=== PATIENT | male | born 1955 | race Caucasian/White ===

== ENCOUNTER 2016-12-04 21:47 | Inpatient (IN) | payer OTHER ==
[~2016-12-04] VITALS: Ht 167.6 cm; Wt 67.8 kg
[~2016-12-04 21:47] MED LIST: ALBU2.5V36 NEB; GABA300C PO; HYD25 PO; HYDR2TAB36 PO; LANT3I SC; NOV SC
--- NOTE | 2016-12-04 23:41 | ERA ---
ER Documentation Chief Complaint Date/Time DATE: 12/04/16 TIME: 23:40 Chief Complaint fall HPI The patient is a 61-year-old male, presenting to the ER because he was drinking and had a mechanical fall. He complains of headache, neck pain, denies chest pain or dyspnea, complains of diffuse abdominal pain, denies vomiting, dysuria, diarrhea. He smokes and drinks denies illicit drug Past medical history: Hypertension, diabetes mellitus, history of pancreatitis Past surgical history: Cholecystectomy ROS All systems reviewed and are negative except as per history of present illness. Medications Home Meds Reported Medications Tramadol Hcl* (Ultram*) 50 Mg Tablet, 100 MG PO Q12H Y for PAIN, TAB TK 2 TS PO Q 12H PRN 12/05/16 Atorvastatin* (Atorvastatin*) 40 Mg Tablet, 40 MG PO QHS, #30 TAB 12/05/16 Zolpidem Tartrate* (Zolpidem Tartrate*) 10 Mg Tablet, 10 MG PO QHS Y for INSOMNIA, #30 TAB 12/05/16 Thiamine* (Vitamin B-1*) 100 Mg Tablet, 100 MG PO DAILY, TAB 12/05/16 Amlodipine Besylate* (Norvasc*) 5 Mg Tablet, 5 MG PO DAILY, TAB 12/05/16 Propranolol Hcl* (Propranolol Hcl*) 10 Mg Tablet, 10 MG PO DAILY, TAB 12/05/16 Insulin Aspart (Novolog) 100 Unit/1 Ml Cartridge, 5 UNIT SQ WITH MEALS 12/05/16 Gabapentin* (Neurontin*) 300 Mg Capsule, 300 MG PO TID, CAP 06/11/14 Hydromorphone Hcl* (Dilaudid*) 2 Mg Tablet, 2 MG PO Q8 Y for PAIN, TAB 06/11/14 Insulin Glargine* (Lantus*) 100 Unit/Ml Soln, 10 UNIT SC HS, EA 06/11/14 Discontinued Reported Medications Albuterol Sulfate* (Albuterol Sulfate* Neb) 0.5%-0.5 Ml Neb, 2.5 MG NEB Q4H Y for WHEEZING AND SOB, EA 06/11/14 Insulin Aspart* (Novolog Insulin Vial*) 100 U/Ml Vial, 0 SC SLIDING SCALE AC, VIAL 06/11/14 Hydrochlorothiazide* (Hydrochlorothiazide*) 25 Mg Tab, 25 MG PO DAILY, TAB 06/11/14 Allergies Allergies: Coded Allergies: No Known Allergy (Unverified , 12/05/16) PMhx/Soc History of Surgery: Yes Anesthesia Reaction: No Hx Neurological Disorder: Yes (Pt states that he had TIA) Hx Respiratory Disorders: No Hx Cardiac Disorders: No Hx Psychiatric Problems: Yes (ETOH abuse) Hx Miscellaneous Medical Probl: No Hx Alcohol Use: Yes (1 can beer,i bottle vodka 12/04/16) Hx Substance Use: No (denies) Hx Tobacco Use: Yes Smoking Status: Current every day smoker Physical Exam Vitals Vital Signs Date Time Temp Pulse Resp B/P Pulse Ox O2 Delivery O2 Flow Rate FiO2 12/05/16 00:23 98.2 109 16 132/79 96 Room Air 12/04/16 21:54 98.7 96 18 124/71 96 Physical Exam Const: No acute distress. Head: Atraumatic. Eyes: Normal Conjunctiva. ENT: Normal External Ears, Nose and Mouth. Neck: Full range of motion. No meningismus. Resp: Clear to auscultation bilaterally. Cardio: Regular rate and rhythm. Abd: Soft, non distended, normal bowel sounds, Diffuse abdominal tenderness, No rigidity, rebound, CVA tenderness Skin: No petechiae or rashes. Back: No midline or flank tenderness. Ext: No cyanosis, or edema.Bilateral knee with full range of motion, no deformity Neur: Awake and alert. No focal deficit Psych: Limited because patient is Intoxicated Result Diagram: 12/05/16 0200 12/05/16 0200 Results 24 hrs Laboratory Tests Test 12/05/16 00:37 12/05/16 02:00 Bedside Urine pH (LAB) 5.5 Bedside Urine Protein (LAB) 1+ Bedside Urine Glucose (UA) Negative Bedside Urine Ketones (LAB) Negative Bedside Urine Blood Negative Bedside Urine Nitrite (LAB) Negative Bedside Urine Leukocyte Esterase (L Negative White Blood Count 7.510^3/ul Red Blood Count 4.2310^6/ul Hemoglobin 13.7g/dl Hematocrit 40.6% Mean Corpuscular Volume 96.0fl Mean Corpuscular Hemoglobin 32.4pg Mean Corpuscular Hemoglobin Concent 33.7g/dl Red Cell Distribution Width 13.2% Platelet Count 52253^3/UL Mean Platelet Volume 11.1fl Neutrophils % 48.6% Lymphocytes % 38.0% Monocytes % 10.9% Eosinophils % 1.1% Basophils % 1.1% Nucleated Red Blood Cells % 0.0/100WBC Neutrophils # (Manual) 3.710^3/ul Lymphocytes # 2.910^3/ul Monocytes # 0.810^3/ul Eosinophils # 0.110^3/ul Basophils # 0.110^3/ul Nucleated Red Blood Cells # 0.010^3/ul Prothrombin Time 15.2Sec Prothrombin Time Ratio 1.2 INR International Normalized Ratio 1.19 Activated Partial Thromboplast Time 33.5Sec Sodium Level 146mmol/L Potassium Level 4.2mmol/L Chloride Level 99mmol/L Carbon Dioxide Level 23mmol/L Anion Gap 28 Blood Urea Nitrogen 9mg/dl Creatinine 0.63mg/dl Glucose Level 169mg/dl Calcium Level 10.1mg/dl Total Bilirubin 0.3mg/dl Direct Bilirubin 0.00mg/dl Indirect Bilirubin 0.3mg/dl Aspartate Amino Transf (AST/SGOT) 41IU/L Alanine Aminotransferase (ALT/SGPT) 20IU/L Alkaline Phosphatase 120IU/L Total Protein 8.1g/dl Albumin 4.5g/dl Globulin 3.60g/dl Albumin/Globulin Ratio 1.25 Lipase 51U/L Ethyl Alcohol Level 285.0mg/dl Current Medications Medications (Trade) Dose Ordered Sig/Dom Route PRN Reason Start Time Stop Time Status Last Admin Dose Admin Sodium Chloride (NS) 1,000 ml @ 100 mls/hr Q10H IV 12/05/16 04:05 IV Flush (NS 3 ml) 3 ml PER PROTOCOL IV 12/05/16 04:30 Ondansetron HCl (Zofran Inj) 4 mg Q6H PRN IV NAUSEA AND/OR VOMITING 12/05/16 04:30 Acetaminophen (Tylenol Tab) 650 mg Q6H PRN PO PAIN LEVEL 1-3 OR FEVER 12/05/16 04:30 Morphine Sulfate (morphine) 2 mg Q4H PRN IV SEVERE PAIN LEVEL 7-10 12/05/16 04:30 Famotidine (Pepcid) 20 mg Q12 PO 12/05/16 09:00 Albuterol/ Ipratropium 3 ml 3 ml Q2H RESP THERAPY PRN HHN SHORTNESS OF BREATH 12/05/16 04:30 Multivitamins/ Thiamine HCl/ Folic Acid/Sodium Chloride (Mvi Adult/ Vitamin B1/Folic Acid/NS) 1,011.2 ml @ 125 mls/ hr DAILY@09 IVPB 12/05/16 09:00 12/08/16 08:00 Chlordiazepoxide (Librium) 25 mg BID PO 12/05/16 09:00 Lorazepam (Ativan) 2 mg Q1H PRN IV withdrawal 12/05/16 04:30 Amlodipine Besylate (Norvasc) 5 mg DAILY PO 12/05/16 09:00 UNV Atorvastatin Calcium (Lipitor) 40 mg QHS PO 12/05/16 21:00 UNV Gabapentin (Neurontin) 300 mg TID PO 12/05/16 09:00 UNV Insulin Glargine (Lantus) 10 unit HS SC 12/05/16 21:00 Tramadol HCl (Ultram) 100 mg Q12H PRN PO PAIN 12/05/16 04:30 Zolpidem Tartrate (Ambien) 10 mg QHS PRN PO INSOMNIA 12/05/16 04:30 UNV Insulin Aspart (Novolog Insulin Pen) 5 unit WITH MEALS SC 12/05/16 08:00 Procedures/[place] [address] Radiology Main Line: [phone] DIAGNOSTIC IMAGING REPORT Patient: SULEIMAN MENARD : 1955 Age: 61 Sex: M MR #: [id number] DOS: 12/05/16 0015 Ordering MD: JOSE JUAN HENDRICKS MD Location: E/R Room/Bed: PROCEDURE: XR Chest. CLINICAL INDICATION: Pain. TECHNIQUE: Single AP portable chest. COMPARISON: No prior Chest x-ray FINDINGS: The cardiomediastinal silhouette is within normal limits of size. Atherosclerotic calcification of the aorta. The lungs are clear without pleural effusion or focal consolidation. No pneumothorax. The osseous structures and soft tissues are unremarkable. IMPRESSION: 1. No evidence for active cardiopulmonary disease. RPTAT:AAJJ J Port, Physician Date Time Electronically viewed and signed by Adam Rosario Physician on 12/05/2016 00:51 JOHN/ CC: JOSE JUAN HENDRICKS MD [place] [address] Radiology Main Line: [phone] DIAGNOSTIC IMAGING REPORT Patient: SULEIMAN MENARD : 1955 Age: 61 Sex: M MR #: [id number] DOS: 12/05/16 0015 Ordering MD: JOSE JUAN HENDRICKS MD Location: E/R Room/Bed: PROCEDURE: CT Cervical Spine without contrast. CLINICAL INDICATION: Neck pain. TECHNIQUE: A CT of the cervical spine was performed on a CT scanner utilizing thin section axial images from the skull base through the thoracic inlet. Sagittal and coronal reformatted images were made. The CTDIvol is 22.3 mGy and the DLP is 568.56 mGycm. Automated exposure control, adjustment of the mA and/or kV according to patient size, use of iterative reconstruction technique. COMPARISON: No prior studies are available for comparison. FINDINGS: Reversal of the normal cervical lordosis with posterior cervical fusion with intact lateral mass screws and rods bilaterally at C3, C4, and C5 decompression laminectomies. No vertebral body subluxation is seen. No fracture is evident. C2-3: The disc is normal in height. No significant disk bulge or protrusion is evident. There is no central canal stenosis or foraminal narrowing. C3-4: Mild disk space narrowing. Posterior spondylitic ridging. Moderate bilateral facet joint arthropathy. Moderate right and mild left foraminal stenosis. No central canal stenosis. C4-5: The disc is normal in height. Marked bilateral hypertrophic facet joint arthropathy . No significant disk bulge or protrusion is evident. There is no central canal stenosis or foraminal narrowing. C5-6: The disc is normal in height. Mild bilateral facet joint arthropathy. No significant disk bulge or protrusion is evident. There is no central canal stenosis or foraminal narrowing. C6-7: The disc is normal in height. 4 days disk osteophyte complex formation and moderate hypertrophic facet joint arthropathy. Moderate bilateral foraminal and severe central canal stenosis measuring 5 mm in AP dimension. C7-T1: The disc is normal in height. Left subarticular disk osteophyte complex resulting in mild left foraminal stenosis without central canal or significant foraminal stenosis. No paraspinal soft tissue abnormality. The lung apices are clear. IMPRESSION: 1. Intact posterior lateral mass screws and fusion rods from C3-C5 with decompression laminectomies. 2. Mild multilevel disk desiccation and degenerative spondylosis/enthesopathy and facet joint arthropathy from C3-C4 through C6-C7 as detailed above. RPTAT:AAJJ Adam Rosario Physician Date Time Electronically viewed and signed by Physician Belinda on 12/05/2016 01:48 JOHN/ CC: JOSE JUAN HENDRICKS MD [place] [address] Radiology Main Line: [phone] DIAGNOSTIC IMAGING REPORT Patient: SULEIMAN MENARD : 1955 Age: 61 Sex: M MR #: [id number] DOS: 12/05/16 0015 Ordering MD: JOSE JUAN HENDRICKS MD Location: E/R Room/Bed: PROCEDURE: CT Brain without contrast. CLINICAL INDICATION: Pain TECHNIQUE: A multiplanar CT of the brain was performed on a CT scanner utilizing axial imaging from the skull base through the vertex without IV contrast. The CTDIvol is 41.74 mGy and the DLP is 720.23 mGycm. One or more of the following dose reduction techniques were utilized: Automated exposure control, adjustment of the mA and/or kV according to patient size, use of iterative reconstruction technique. COMPARISON: None FINDINGS: No evidence of intracranial hemorrhage or abnormal extra-axial fluid collection. Patchy and confluent hypoattenuation throughout the deep white matter with bilateral of thalamic remote lacunar infarcts. The ventricles and subarachnoid spaces are moderately prominent compatible with a age-related volume loss. The basal cisterns, posterior fossa contents, brainstem, craniocervical junction , orbits, pituitary axis, paranasal sinuses, mastoid air cells, and calvarium are unremarkable. IMPRESSION: 1. No intracranial hemorrhage or acute intracranial abnormality. 2. Moderate chronic microvascular ischemic changes and age related volume loss . RPTAT:AAJJ Adam Rosario Physician Date Time Electronically viewed and signed by Adam Rosario Physician on 12/05/2016 01:41 JOHN/ CC: JOSE JUAN HENDRICKS MD [place] [address] Radiology Main Line: [phone] DIAGNOSTIC IMAGING REPORT Patient: SULEIMAN MENARD : 1955 Age: 61 Sex: M MR #: [id number] DOS: 12/05/16 0015 Ordering MD: JOSE JUAN HENDRICKS MD Location: E/R Room/Bed: AMENDMENT: 12/05/2016 2:08:06 AM Hadley Ann MD ADDENDUM: IMPRESSION: Nodular hepatic serosa compatible with a degree of cirrhosis. PROCEDURE: CT abdomen and pelvis without contrast. CLINICAL INDICATION: Abdominal pain. TECHNIQUE: Noncontrast CT examination of the abdomen and pelvis, with axial, sagittal and coronal reformatted images. CTDI: 8.32 mGy and DLP: 521.83 mGy-cm. COMPARISON: None. FINDINGS: CT abdomen: The lung bases are clear. The heart size is normal, without pericardial thickening or effusion. The liver demonstrates a nodular serosa compatible with cirrhosis. Otherwise, the liver is normal in size and density without focal mass or intrahepatic biliary dilatation. The spleen is normal in size and homogeneous in density. The stomach is partially collapsed, but is grossly unremarkable. The pancreas as visualized is normal. The gallbladder is surgically absent, and biliary tree is unremarkable and there is no evidence for biliary dilatation. The adrenal glands are symmetric and normal. Kidneys demonstrate mild perinephric fat inflammatory changes. IV contrast enhanced CT examination may be of further use. No renal calculus or obstructive uropathy or mass lesion is seen. The aorta is of normal caliber. Aortic vascular calcifications are present. There is no retroperitoneal lymphadenopathy. The vitaliy hepatis region is clear. Diverticula throughout the colon. Nonspecific mild to moderate small bowel ileus. The appendix is unremarkable. CT pelvis: Subcutaneous soft tissue lesion seen over the posterior superior medial right iliac, measuring 62 x 47 x 38 mm. This may represent a resolving hematoma if there is no history of trauma consider contrast enhanced MRI examination to exclude a soft tissue neoplasm. Nonspecific mild to moderate small bowel ileus. The pelvic organs are otherwise normal. The pelvic sidewalls and inguinal regions are clear. The sigmoid colon contains scattered diverticula; and rectum is unremarkable. No mass, lymphadenopathy, or free fluid is seen. No acute inflammation is seen. The appendix is unremarkable. The surrounding osseous structures are remarkable for degenerative spondylosis of the spine. Anterior wedging is seen at the L1 level with superior endplate Schmorl node. Erosive changes seen at the anterior L4-5 articulation with disk vacuum effect and disk space narrowing. Likely Schmorl nodes seen at the inferior endplate of L3. Internal metallic fixation of the left hip. No osteolytic or osteoblastic lesion is detected. IMPRESSION: 1. Nonspecific bilateral renal perinephric fat inflammatory changes. Consider IV contrast enhanced CT correlation. 2. Mild to moderate nonspecific small bowel ileus. 3. Soft tissue lesion at the superior medial aspect of the right iliac may represent a resolving hematoma. Differential considerations include neoplasm in the absence of trauma, and consider IV contrast enhanced MRI correlation. 4. Otherwise, no acute process in the abdomen or pelvis. RPTAT: UU Physician Shelby Date Time Electronically viewed and signed by Physician Shelby on 12/05/2016 02:08 RS/ CC: JOSE JUAN HENDRICKS MD B/l Knees xray aer pending MEDICAL MAKING DECISION: The patient is 61-year-old male, presenting alcohol intoxication, acute ileus. The differential diagnoses considered include but are not limited to cholelithiasis, cholecystitis, cystitis, pancreatitis, hepatitis, gastritis, peptic ulcer disease, gastric ulcer, appendicitis, diverticulitis, cholangitis, choledocholithiasis, partial small bowel obstruction. Consultation: Consultation I discussed the present with the on-call general surgeon Dr. Page, who was made aware of the lab, the treatment, the patient condition. He accepted the consult Departure Diagnosis: Primary Impression: Ileus Additional Impressions: Alcoholic intoxication Anemia Condition: Stable Comments I discussed the findings with the patient. I discussed the patient with the hospitalist Dr. Hoskins at 3:40 AM who was made aware of the lab, the treatment, the patient condition. The patient is admitted to JOSE JUAN JACOME MD Dec 04, 2016 23:41
[2016-12-05 00:31] LABS: URINE BLOOD (Dip) POC Negative (NEGATIVE)
--- NOTE | 2016-12-05 00:51 | RADRPT ---
PROCEDURE: XR Chest. CLINICAL INDICATION: Pain. TECHNIQUE: Single AP portable chest. COMPARISON: No prior Chest x-ray FINDINGS: The cardiomediastinal silhouette is within normal limits of size. Atherosclerotic calcification of t he aorta. The lungs are clear without pleural effusion or focal consolidation. No pneumothorax. The osseous structures and soft tissues are unremarkable. IMPRESSION: 1. No evidence for active cardiopulmonary disease. RPTAT:AAJJ Adam Rosario Physician Date Time Electronically viewed and signed by Adam Rosario Physician on 12/05/2016 00:51 JOHN/
--- NOTE | 2016-12-05 01:42 | RADRPT ---
PROCEDURE: CT Brain without contrast. CLINICAL INDICATION: Pain TECHNIQUE: A multiplanar CT of the brain was performed on a CT scanner utilizing axial imaging fro m the skull base through the vertex without IV contrast. The CTDIvol is 41.74 mGy and the DLP is 72 0.23 mGycm. One or more of the following dose reduction techniques were utilized: Automated exposu re control, adjustment of the mA and/or kV according to patient size, use of iterative reconstructio n technique. COMPARISON: None FINDINGS: No evidence of intracranial hemorrhage or abnormal extra-axial fluid collection. Patchy and confluent hypoattenuation throughout the deep white matter with bilateral of thalamic rem ote lacunar infarcts. The ventricles and subarachnoid spaces are moderately prominent compatible wi th a age-related volume loss. The basal cisterns, posterior fossa contents, brainstem, craniocervical junction, orbits, pituitary axis, paranasal sinuses, mastoid air cells, and calvarium are unremarkable. IMPRESSION: 1. No intracranial hemorrhage or acute intracranial abnormality. 2. Moderate chronic microvascular ischemic changes and age related volume loss . RPTAT:AAJJ Physician Belinda Date Time Electronically viewed and signed by Physician Belinda on 12/05/2016 01:41 JOHN/
--- NOTE | 2016-12-05 01:48 | RADRPT ---
PROCEDURE: CT Cervical Spine without contrast. CLINICAL INDICATION: Neck pain. TECHNIQUE: A CT of the cervical spine was performed on a CT scanner utilizing thin section axial images from the skull base through the thoracic inlet. Sagittal and coronal reformatted images were made. The CTDIvol is 22.3 mGy and the DLP is 568.56 mGycm. Automated exposure control, adjustment of the mA and/or kV according to patient size, use of iterative reconstruction technique. COMPARISON: No prior studies are available for comparison. FINDINGS: Reversal of the normal cervical lordosis with posterior cervical fusion with intact lateral mass scr ews and rods bilaterally at C3, C4, and C5 decompression laminectomies. No vertebral body subluxati on is seen. No fracture is evident. C2-3: The disc is normal in height. No significant disk bulge or protrusion is evident. There is no central canal stenosis or foraminal narrowing. C3-4: Mild disk space narrowing. Posterior spondylitic ridging. Moderate bilateral facet joint art hropathy. Moderate right and mild left foraminal stenosis. No central canal stenosis. C4-5: The disc is normal in height. Marked bilateral hypertrophic facet joint arthropathy . No signi ficant disk bulge or protrusion is evident. There is no central canal stenosis or foraminal narrowin g. C5-6: The disc is normal in height. Mild bilateral facet joint arthropathy. No significant disk bulg e or protrusion is evident. There is no central canal stenosis or foraminal narrowing. C6-7: The disc is normal in height. 4 days disk osteophyte complex formation and moderate hypertrop hic facet joint arthropathy. Moderate bilateral foraminal and severe central canal stenosis measuri ng 5 mm in AP dimension. C7-T1: The disc is normal in height. Left subarticular disk osteophyte complex resulting in mild lef t foraminal stenosis without central canal or significant foraminal stenosis. No paraspinal soft tissue abnormality. The lung apices are clear. IMPRESSION: 1. Intact posterior lateral mass screws and fusion rods from C3-C5 with decompression laminectomies. 2. Mild multilevel disk desiccation and degenerative spondylosis/enthesopathy and facet joint arthr opathy from C3-C4 through C6-C7 as detailed above. RPTAT:AAJJ Adam Rosario, Physician Date Time Electronically viewed and signed by Adam Rosario Physician on 12/05/2016 01:48 JOHN/
--- NOTE | 2016-12-05 01:48 | RADRPT ---
AMENDMENT: 12/05/2016 2:08:06 AM Hadley Ann MD ADDENDUM: IMPRESSION: Nodular hepatic serosa compatible with a degree of cirrhosis. PROCEDURE: CT abdomen and pelvis without contrast. CLINICAL INDICATION: Abdominal pain. TECHNIQUE: Noncontrast CT examination of the abdomen and pelvis, with axial, sagittal and coronal r eformatted images. CTDI: 8.32 mGy and DLP: 521.83 mGy-cm. COMPARISON: None. FINDINGS: CT abdomen: The lung bases are clear. The heart size is normal, without pericardial thickening or effusion. The liver demonstrates a nodular serosa compatible with cirrhosis. Otherwise, the liver is normal i n size and density without focal mass or intrahepatic biliary dilatation. The spleen is normal in s ize and homogeneous in density. The stomach is partially collapsed, but is grossly unremarkable. T he pancreas as visualized is normal. The gallbladder is surgically absent, and biliary tree is unre markable and there is no evidence for biliary dilatation. The adrenal glands are symmetric and norm al. Kidneys demonstrate mild perinephric fat inflammatory changes. IV contrast enhanced CT examina tion may be of further use. No renal calculus or obstructive uropathy or mass lesion is seen. The aorta is of normal caliber. Aortic vascular calcifications are present. There is no retroperit swain lymphadenopathy. The vitaliy hepatis region is clear. Diverticula throughout the colon. Nonspecific mild to moderate small bowel ileus. The appendix is u nremarkable. CT pelvis: Subcutaneous soft tissue lesion seen over the posterior superior medial right iliac, measuring 62 x 47 x 38 mm. This may represent a resolving hematoma if there is no history of trauma consider contr ast enhanced MRI examination to exclude a soft tissue neoplasm. Nonspecific mild to moderate small bowel ileus. The pelvic organs are otherwise normal. The pelvic sidewalls and inguinal regions are clear. The sigmoid colon contains scattered diverticula; and re ctum is unremarkable. No mass, lymphadenopathy, or free fluid is seen. No acute inflammation is se en. The appendix is unremarkable. The surrounding osseous structures are remarkable for degenerative spondylosis of the spine. Anterio r wedging is seen at the L1 level with superior endplate Schmorl node. Erosive changes seen at the anterior L4-5 articulation with disk vacuum effect and disk space narrowing. Likely Schmorl nodes s een at the inferior endplate of L3. Internal metallic fixation of the left hip. No osteolytic or o steoblastic lesion is detected. IMPRESSION: 1. Nonspecific bilateral renal perinephric fat inflammatory changes. Consider IV contrast enhanced CT correlation. 2. Mild to moderate nonspecific small bowel ileus. 3. Soft tissue lesion at the superior medial aspect of the right iliac may represent a resolving he matoma. Differential considerations include neoplasm in the absence of trauma, and consider IV cont rast enhanced MRI correlation. 4. Otherwise, no acute process in the abdomen or pelvis. RPTAT: [facility] Physician Shelby Date Time Electronically viewed and signed by Physician Shelby on 12/05/2016 02:08 RS/
[2016-12-05 02:29] LABS: BASOPHIL # 0.1 10^3/ul (0.0-0.1); BASOPHILS % 1.1 % (0.0-2.0); EOSINOPHILS # 0.1 10^3/ul (0.0-0.5); EOSINOPHILS % 1.1 % (0.0-7.0); HEMATOCRIT 40.6 % (42.0-52.0); HEMOGLOBIN 13.7 g/dl (14.0-18.0); LYMPHOCYTES # 2.9 10^3/ul (0.8-2.9); MEAN CORPUSCULAR HEMOGLOBIN 32.4 pg (29.0-33.0); MEAN CORPUSCULAR HGB CONC 33.7 g/dl (32.0-37.0); MEAN PLATELET VOLUME 11.1 fl (7.4-10.4); MONOCYTE # 0.8 10^3/ul (0.3-0.9); MONOCYTES % 10.9 % (0.0-11.0); NEUTROPHILS % 48.6 % (39.0-77.0); PLATELET COUNT 272 10^3/UL (140-415); RED BLOOD COUNT 4.23 10^6/ul (4.70-6.10); RED CELL DISTRIBUTION WIDTH 13.2 % (11.5-14.5); WHITE BLOOD COUNT 7.5 10^3/ul (4.8-10.8)
[2016-12-05] MEDS ORDERED: INSU100C3 SQ (02:34)
[2016-12-05] MEDS ORDERED: THIA100T56 PO (02:40)
[2016-12-05] MEDS ORDERED: ATOR40TA68 PO (02:40)
[2016-12-05] MEDS ORDERED: TRAM-40 PO (02:40)
[2016-12-05] MEDS ORDERED: PROP10TA6 PO (02:40)
[2016-12-05] MEDS ORDERED: ZOLP10TA5 PO (02:40)
[2016-12-05] MEDS ORDERED: AMLO5TAB4 PO (02:40)
[2016-12-05 02:46] LABS: INR 1.19; PROTIME 15.2 Sec (12.2-14.2); PT RATIO 1.2
[2016-12-05 02:47] LABS: PARTIAL THROMBOPLASTIN TIME 33.5 Sec (25.0-35.0)
[2016-12-05 02:50] LABS: ALBUMIN 4.5 g/dl (3.3-4.9); ALBUMIN/GLOBULIN RATIO 1.25; BILIRUBIN,INDIRECT 0.3 mg/dl (0-1.1); BILIRUBIN,TOTAL 0.3 mg/dl (0.2-1.3); CALCIUM 10.1 mg/dl (8.4-10.2); CREATININE 0.63 mg/dl (0.61-1.24); POTASSIUM 4.2 mmol/L (3.5-5.1); TOTAL PROTEIN 8.1 g/dl (6.1-8.1)
[2016-12-05] MEDS ORDERED: ACETAMINOPHEN 325 MG TAB PO PRN (04:30)
[2016-12-05] MEDS ORDERED: ALBUTEROL/IPRATROPIUM (NEB) 3 ML AMP HHN PRN (04:30)
[2016-12-05] MEDS ORDERED: GLUCOSE GEL 15 GRAM TUBE BUCCAL PRN (04:30)
[2016-12-05] MEDS ORDERED: DEXTROSE 50% 50 ML SYRINGE IV PRN ×2 (04:30)
[2016-12-05] MEDS ORDERED: NACL 0.9% 3 ML SYG IV SCH (04:30)
[2016-12-05] MEDS ORDERED: GLUCOSE GEL 15 GRAM TUBE PO PRN ×2 (04:30)
[2016-12-05] MEDS ORDERED: GLUCAGON 1 MG INJ IM PRN (04:30)
--- NOTE | 2016-12-05 04:42 | RADRPT ---
PROCEDURE: RIGHT knee x-ray CLINICAL INDICATION: Pain, fall TECHNIQUE: AP, lateral and oblique views of the knee were obtained. COMPARISON: None FINDINGS: Moderate osteoarthrosis at the medial and lateral compartments of the knee joint and patellofemoral joint. There are multiple loose intra-articular ossific bodies the largest 1.1 cm in the supra padilla llar bursa region. No acute fracture or dislocation seen. Small effusion. There is likely chondroc alcinosis in the medial meniscus as well IMPRESSION: Tricompartmental moderate osteoarthrosis. Multiple loose intra-articular ossific bodies. Small effu damon. 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 RPTAT: HJES .Barak Jin MD, Date Time Electronically viewed and signed by .Barak Jin MD, on 12/05/2016 04:41 .S/
--- NOTE | 2016-12-05 04:45 | RADRPT ---
PROCEDURE: Left knee x-ray CLINICAL INDICATION: Pain, fall TECHNIQUE: AP, lateral and oblique views of the left knee were obtained. COMPARISON: None FINDINGS: Moderate osteoarthrosis at the lateral compartment of the knee joint and mild osteoarthrosis at the patellofemoral joint. Diffuse osteopenia. Chondrocalcinosis in the lateral meniscus. No acute fra cture or dislocation is seen. IMPRESSION: Moderate osteoarthrosis at lateral compartment of knee joint and mild osteoarthrosis at patellofemor al joint. Diffuse osteopenia. Chondrocalcinosis in lateral meniscus. No acute fracture seen. Smal l loose intra-articular ossific body or bodies measuring up to approximate 1.5 cm in the suprapatell ar bursa region is possible. RPTAT: HJES .Barak Jin MD, MD Date Time Electronically viewed and signed by .Barak Jin MD, on 12/05/2016 04:44 .S/
[2016-12-05] MEDS: traMADol 50 MG TAB PO PRN (05:51)
--- NOTE | 2016-12-05 07:46 | HP ---
Date/Time of Note Date/Time of Note DATE: 12/05/16 TIME: 07:31 Assessment/Plan VTE Prophylaxis VTE Prophylaxis Intervention: SCD's Assessment/Plan Assessment/Plan 1. Alcohol intoxication -Banana bag, Librium and as needed Ativan -IV fluids 2. Mechanical fall, secondary to the alcohol intoxication -Head CT and cervical CT were negative for acute findings. Abdomen/pelvic CT showed soft tissue lesion in the right iliac, likely resolving hematoma. -Fall precaution and treat alcohol intoxication 3. Mild hypernatremia -Monitor for now HPI/ROS Admit Date/Time Admit Date/Time Hx of Present Illness This is a 61-year-old male with a history of diabetes, cervical laminectomy and alcohol abuse who presented to the emergency department complaining of headache and neck pain and abdominal pain. He said that he has been drinking heavily, mainly vodka and had a mechanical fall. Due to intoxication and sleepiness, obtaining history and been difficult. When he presented to the ER, his blood alcohol level was elevated. CT head was negative for acute findings. Cervical CT shows C3-C5 laminectomies otherwise no acute fracture or dislocation. Chest x-ray was also negative. CT abdomen/ pelvis showed nonspecific bilateral renal perinephric fat inflammatory change. Soft tissue lesion in the right iliac likely resolving hematoma although differential includes possible neoplasm. Also noted was mild to moderate ileus. Vitals were stable and lab shows sodium of 146 and hemoglobin of 13.7 otherwise CBC and CMP was in normal range. . PMH/Family/Social Social History Smoking Status: Current every day smoker Exam/Review of Systems Vital Signs Vitals Vital Signs Date Time Temp Pulse Resp B/P Pulse Ox O2 Delivery O2 Flow Rate FiO2 12/05/16 05:28 112 18 146/95 100 Room Air 12/05/16 04:00 98.2 Exam Constitutional: other (Sleepy but arousable. Confused) Psych: confusion Respiratory: clear to auscultation, normal air movement Cardiovascular: regular rate and rhythm Gastrointestinal: soft, tender Extremities: normal pulses Labs Result Diagram: 12/05/16 0200 12/05/16 0200 Medications Medications Current Medications Sodium Chloride (NS) 1,000 ml @ 100 mls/hr Q10H IV ; Start 12/05/16 at 04:05 Ondansetron HCl (Zofran Inj) 4 mg Q6H PRN IV NAUSEA AND/OR VOMITING; Start 12/05 at 04:30 Acetaminophen (Tylenol Tab) 650 mg Q6H PRN PO PAIN LEVEL 1-3 OR FEVER; Start at 04:30 Morphine Sulfate (morphine) 2 mg Q4H PRN IV SEVERE PAIN LEVEL 7-10; Start at 04:30 Famotidine 20 mg 20 mg Q12 PO ; Start 12/05/16 at 09:00 Multivitamins/ Thiamine HCl/ Folic Acid/Sodium Chloride (Mvi Adult/ Vitamin B1/ Folic Acid/NS) 1,011.2 ml @ 125 mls/ hr DAILY@09 IVPB ; Start 12/05/16 at 09:00 ; Stop 12/08/16 at 08:00 Chlordiazepoxide (Librium) 25 mg BID PO ; Start 12/05/16 at 09:00 Lorazepam (Ativan) 2 mg Q1H PRN IV withdrawal; Start 12/05/16 at 04:30 Amlodipine Besylate (Norvasc) 5 mg DAILY PO ; Start 12/05/16 at 09:00; Status UNV Atorvastatin Calcium (Lipitor) 40 mg QHS PO ; Start 12/05/16 at 21:00; Status UNV Gabapentin (Neurontin) 300 mg TID PO ; Start 12/05/16 at 09:00; Status UNV Insulin Glargine (Lantus) 10 unit HS SC ; Start 12/05/16 at 21:00 Tramadol HCl (Ultram) 100 mg Q12H PRN PO PAIN Last administered on 12/05/16t 05: 51; Admin Dose 100 MG; Start 12/05/16 at 04:30 Zolpidem Tartrate (Ambien) 10 mg QHS PRN PO INSOMNIA; Start 12/05/16 at 04:30; Status UNV Miscellaneous Information 1 ea NOTE XX ; Start 12/05/16 at 04:30 Glucose (Glutose) 15 gm Q15M PRN PO DECREASED GLUCOSE; Start 12/05/16 at 04:30 Glucose (Glutose) 22.5 gm Q15M PRN PO DECREASED GLUCOSE; Start 12/05/16 at 04:30 Dextrose (D50w Syringe) 25 ml Q15M PRN IV DECREASED GLUCOSE; Start 12/05/16 at 04:30 Dextrose (D50w Syringe) 50 ml Q15M PRN IV DECREASED GLUCOSE; Start 12/05/16 at 04:30 Glucagon (Glucagen) 1 mg Q15M PRN IM DECREASED GLUCOSE; Start 12/05/16 at 04:30 Glucose (Glutose) 15 gm Q15M PRN BUCCAL DECREASED GLUCOSE; Start 12/05/16 at 04: 30 DEREK RAMOS MD Dec 05, 2016 07:42
[2016-12-05] MEDS: INSULIN ASPART [NOVOLOG] 3 ML PEN SC SCH ×3 (08:00→18:00)
[2016-12-05] MEDS: SOD CHLORIDE 0.9% 1,000 ML IV SCH ×3 (08:42→19:52)
[2016-12-05] MEDS: FAMOTIDINE 20 MG TAB PO SCH ×2 (11:10→20:11)
[2016-12-05] MEDS: AMLODIPINE 5 MG TAB PO SCH (11:12)
[2016-12-05] MEDS: GABAPENTIN 300 MG CAP PO SCH ×3 (11:12→20:11)
[2016-12-05] MEDS: CHLORDIAZEPOXIDE 25 MG CAP PO SCH ×2 (11:13→20:11)
[2016-12-05] MEDS: MULTIVITAMINS 10 ML, THIAMINE 100 MG, FOLIC ACID 1 MG in SOD CHLORIDE 0.9% 1,000 ML IVPB SCH (11:13)
[2016-12-05] MEDS: morphine 2 MG INJ IV PRN ×2 (11:40→19:52)
[2016-12-05] MEDS: ONDANSETRON 4 MG INJ IV PRN (11:41)
[2016-12-05 16:16] VITALS: TEMP 98.2
[2016-12-05 16:52] VITALS: Ht 167.6 cm; Wt 67.8 kg
[2016-12-05 17:11] VITALS: BP 170/78; RESP 18
[2016-12-05 18:00] VITALS: BP 138/78
[2016-12-05 20:00] VITALS: BP 163/79; RESP 18
[2016-12-05] MEDS: ATORVASTATIN 40 MG TAB PO SCH (20:11)
[2016-12-05] MEDS: INSULIN GLARGINE [LANtus] 3 ML PEN SC SCH (20:19)
[2016-12-05 22:00] VITALS: BP 142/72; RESP 18
[2016-12-05] MEDS: ZOLPIDEM 5 MG TAB PO PRN (22:14)
[2016-12-06] MEDS: SOD CHLORIDE 0.9% 1,000 ML IV SCH ×3 (00:05→20:14)
[2016-12-06] MEDS: morphine 2 MG INJ IV PRN ×6 (01:32→22:45)
[2016-12-06 02:00] VITALS: BP 148/72; RESP 20
[2016-12-06 06:03] LABS: BASOPHIL # 0.1 10^3/ul (0.0-0.1); EOSINOPHILS # 0.1 10^3/ul (0.0-0.5); EOSINOPHILS % 1.5 % (0.0-7.0); HEMATOCRIT 35.8 % (42.0-52.0); HEMOGLOBIN 11.6 g/dl (14.0-18.0); LYMPHOCYTES # 1.7 10^3/ul (0.8-2.9); LYMPHOCYTES % 23.7 % (15.0-51.0); MEAN CORPUSCULAR HEMOGLOBIN 32.6 pg (29.0-33.0); MEAN CORPUSCULAR HGB CONC 32.4 g/dl (32.0-37.0); MEAN CORPUSCULAR VOLUME 100.6 fl (82.0-101.0); MEAN PLATELET VOLUME 11.6 fl (7.4-10.4); MONOCYTE # 1.4 10^3/ul (0.3-0.9); MONOCYTES % 19.1 % (0.0-11.0); NEUTROPHILS % 54.6 % (39.0-77.0); PLATELET COUNT 195 10^3/UL (140-415); RED BLOOD COUNT 3.56 10^6/ul (4.70-6.10); RED CELL DISTRIBUTION WIDTH 13.1 % (11.5-14.5); WHITE BLOOD COUNT 7.3 10^3/ul (4.8-10.8)
[2016-12-06 06:33] LABS: ALBUMIN 3.7 g/dl (3.3-4.9); ALBUMIN/GLOBULIN RATIO 1.27; BILIRUBIN,INDIRECT 0.5 mg/dl (0-1.1); BILIRUBIN,TOTAL 0.5 mg/dl (0.2-1.3); CALCIUM 9.3 mg/dl (8.4-10.2); CREATININE 0.77 mg/dl (0.61-1.24); MAGNESIUM 1.2 mg/dl (1.7-2.5); PHOSPHORUS 3.2 mg/dl (2.5-4.9); POTASSIUM 4.1 mmol/L (3.5-5.1); TOTAL PROTEIN 6.6 g/dl (6.1-8.1)
[2016-12-06 07:47] VITALS: BP 168/82; RESP 16
[2016-12-06] MEDS: INSULIN ASPART [NOVOLOG] 3 ML PEN SC SCH ×3 (08:39→17:21)
[2016-12-06] MEDS: AMLODIPINE 5 MG TAB PO SCH (08:54)
[2016-12-06] MEDS: FAMOTIDINE 20 MG TAB PO SCH ×2 (08:54→20:17)
[2016-12-06] MEDS: GABAPENTIN 300 MG CAP PO SCH ×3 (08:54→20:17)
[2016-12-06] MEDS: CHLORDIAZEPOXIDE 25 MG CAP PO SCH ×2 (08:55→20:20)
--- NOTE | 2016-12-06 10:35 | CONS ---
Date/Time of Note Date/Time of Note DATE: 12/06/16 TIME: 10:32 Assessment/Plan Assessment/Plan Chief Complaint/Hosp Course At the present time the patient's abdominal examination is entirely benign. He has had a bowel movement. Patient may be started on a diet. Problems: Consultation Date/Type/Reason Admit Date/Time Date of Consultation: Dec 06, 2016 Reason for Consultation Ileus This patient is a 61-year-old gentleman who was binge drinking. He is an alcoholic he suffered a fall salting in a possible pelvic hematoma. A CT also suggested ileus. I have been asked to see him in regards to the finding of ileus. Since his admission he has had a bowel movement and has had no complaints of abdominal pain. Subjective hx not possible: pt non-verbal Psychological: confusion Past Medical History Medical History: no pertinent history Past Surgical History Past Surgical Hx: no surgical history Family History Significant Family History: no pertinent family hx Social History Alcohol Use: heavy Smoking Status: Heavy tobacco smoker Exam/Review of Systems Vital Signs Vitals Vital Signs Date Time Temp Pulse Resp B/P Pulse Ox O2 Delivery O2 Flow Rate FiO2 12/06/16 07:47 98.2 85 16 168/82 97 12/05/16 16:16 Room Air Intake and Output 12/05/16 12/05/16 12/06/16 15:00 23:00 07:00 Intake Total 2811.2 ml 620 ml Output Total 300 ml 350 ml Balance 2511.2 ml 270 ml Exam Constitutional: non-verbal Psych: no complaints Head: normocephalic Eyes: nl conjunctiva ENMT: nl external ears & nose Neck: supple Respiratory: clear to auscultation Cardiovascular: regular rate and rhythm Gastrointestinal: soft Musculoskeletal: nl extremities to inspection Extremities: normal pulses Skin: nl turgor Lymph: nl lymph nodes Results Result Diagram: 12/06/16 0506 12/06/16 0506 Results 24 hrs Laboratory Tests Test 12/05/16 13:30 12/05/16 17:38 12/05/16 20:04 12/06/16 05:06 Bedside Glucose 119 101 104 White Blood Count 7.3 Red Blood Count 3.56 L Hemoglobin 11.6 L Hematocrit 35.8 L Mean Corpuscular Volume 100.6 Mean Corpuscular Hemoglobin 32.6 Mean Corpuscular Hemoglobin Concent 32.4 Red Cell Distribution Width 13.1 Platelet Count 195 # Mean Platelet Volume 11.6 H Neutrophils % 54.6 Lymphocytes % 23.7 Monocytes % 19.1 H Eosinophils % 1.5 Basophils % 1.0 Nucleated Red Blood Cells % 0.0 Neutrophils # (Manual) 4.0 Lymphocytes # 1.7 Monocytes # 1.4 H Eosinophils # 0.1 Basophils # 0.1 Nucleated Red Blood Cells # 0.0 Sodium Level 144 Potassium Level 4.1 Chloride Level 108 Carbon Dioxide Level 28 Anion Gap 12 # Blood Urea Nitrogen 12 Creatinine 0.77 Glucose Level 191 Calcium Level 9.3 Phosphorus Level 3.2 Magnesium Level 1.2 L Total Bilirubin 0.5 Direct Bilirubin 0.00 Indirect Bilirubin 0.5 Aspartate Amino Transf (AST/SGOT) 34 Alanine Aminotransferase (ALT/SGPT) 25 Alkaline Phosphatase 106 Total Protein 6.6 # Albumin 3.7 Globulin 2.90 Albumin/Globulin Ratio 1.27 Test 12/06/16 08:17 Bedside Glucose 143 Medications Medications Current Medications Sodium Chloride (NS) 1,000 ml @ 100 mls/hr Q10H IV Last administered on 19:52; Admin Dose 100 MLS/HR; Start 12/05/16 at 04:05 Ondansetron HCl (Zofran Inj) 4 mg Q6H PRN IV NAUSEA AND/OR VOMITING Last administered on 12/05/16 11:41; Admin Dose 4 MG; Start 12/05/16 at 04:30 Acetaminophen (Tylenol Tab) 650 mg Q6H PRN PO PAIN LEVEL 1-3 OR FEVER; Start at 04:30 Morphine Sulfate (morphine) 2 mg Q4H PRN IV SEVERE PAIN LEVEL 7-10 Last administered on 12/06/16 07:03; Admin Dose 2 MG; Start 12/05/16 at 04:30 Famotidine 20 mg 20 mg Q12 PO Last administered on 12/06/16 08:54; Admin Dose 20 MG; Start 12/05/16 at 09:00 Multivitamins/ Thiamine HCl/ Folic Acid/Sodium Chloride (Mvi Adult/ Vitamin B1/ Folic Acid/NS) 1,011.2 ml @ 125 mls/ hr DAILY@09 IVPB Last administered on 12/05 11:13; Admin Dose 125 MLS/HR; Start 12/05/16 at 09:00; Stop 12/08/16 at 08: 00 Chlordiazepoxide (Librium) 25 mg BID PO Last administered on 12/06/16 08:55; Admin Dose 25 MG; Start 12/05/16 at 09:00 Lorazepam (Ativan) 2 mg Q1H PRN IV withdrawal; Start 12/05/16 at 04:30 Amlodipine Besylate (Norvasc) 5 mg DAILY PO Last administered on 12/06/16 08:54 ; Admin Dose 5 MG; Start 12/05/16 at 09:00 Atorvastatin Calcium (Lipitor) 40 mg QHS PO Last administered on 12/05/16 20:11 ; Admin Dose 40 MG; Start 12/05/16 at 21:00 Gabapentin (Neurontin) 300 mg TID PO Last administered on 12/06/16 08:54; Admin Dose 300 MG; Start 12/05/16 at 09:00 Insulin Glargine (Lantus) 10 unit HS SC Last administered on 12/05/16 20:19; Admin Dose 10 UNIT; Start 12/05/16 at 21:00 Tramadol HCl (Ultram) 100 mg Q12H PRN PO PAIN Last administered on 12/05/16 05: 51; Admin Dose 100 MG; Start 12/05/16 at 04:30 Zolpidem Tartrate (Ambien) 10 mg QHS PRN PO INSOMNIA Last administered on 22:14; Admin Dose 10 MG; Start 12/05/16 at 04:30 Miscellaneous Information 1 ea NOTE XX ; Start 12/05/16 at 04:30 Glucose (Glutose) 15 gm Q15M PRN PO DECREASED GLUCOSE; Start 12/05/16 at 04:30 Glucose (Glutose) 22.5 gm Q15M PRN PO DECREASED GLUCOSE; Start 12/05/16 at 04:30 Dextrose (D50w Syringe) 25 ml Q15M PRN IV DECREASED GLUCOSE; Start 12/05/16 at 04:30 Dextrose (D50w Syringe) 50 ml Q15M PRN IV DECREASED GLUCOSE; Start 12/05/16 at 04:30 Glucagon (Glucagen) 1 mg Q15M PRN IM DECREASED GLUCOSE; Start 12/05/16 at 04:30 Glucose (Glutose) 15 gm Q15M PRN BUCCAL DECREASED GLUCOSE; Start 12/05/16 at 04: 30 EVONNE CARO MD Dec 06, 2016 10:35
[2016-12-06] MEDS: MULTIVITAMINS 10 ML, THIAMINE 100 MG, FOLIC ACID 1 MG in SOD CHLORIDE 0.9% 1,000 ML IVPB SCH (10:45)
--- NOTE | 2016-12-06 11:10 | PN ---
Date/Time of Note Date/Time of Note DATE: 12/06/16 TIME: 11:06 Assessment/Plan VTE Prophylaxis VTE Prophylaxis Intervention: SCD's Lines/Catheters IV Catheter Type (from Nrs): Peripheral IV Assessment/Plan Problems: (1) Essential hypertension Status: Chronic Comment: He is presently on amlodipine. Continue that therapy although given the diabetes and MEGHAN or A2rb drug would be appropriate to consider if needed (2) Diabetes mellitus type 2 in nonobese Status: Chronic Comment: Adequate control on the current regimen. (3) Hyperlipidemia associated with type 2 diabetes mellitus Status: Chronic Comment: Consider statin therapy at the time of discharge. (4) Alcoholism /alcohol abuse Status: Chronic Comment: Is a significant issue. He at this time denies that he has a problem was not interested in referral for rehabilitative care. We will continue to offer this (5) Tobacco abuse Status: Chronic Comment: Strongly counseled (6) Cirrhosis, alcoholic Status: Chronic Comment: He has early stages of compensated cirrhosis. This is due to his alcohol. Qualifiers: Ascites presence: without ascites Qualified Code: K70.30 - Alcoholic cirrhosis of liver without ascites Subjective 24 Hr Interval Summary Free Text/Dictation Patient reports pain at the office. He also has pain in both knees. He denies any hallucinations. Constitutional: no complaints (No fevers chills or sweats) ENT: no complaints (Shortness of breath wheezing or cough) Respiratory: no complaints Cardiovascular: no complaints Gastrointestinal: pain (Periumbilical pain) Genitourinary: no complaints Musculoskeletal: other (Pelvic pain and bilateral knee pain pelvic pain is on the right) Exam/Review of Systems Vital Signs Vitals Vital Signs Date Time Temp Pulse Resp B/P Pulse Ox O2 Delivery O2 Flow Rate FiO2 12/06/16 07:47 98.2 85 16 168/82 97 12/05/16 16:16 Room Air Intake and Output 12/05/16 12/05/16 12/06/16 15:00 23:00 07:00 Intake Total 2811.2 ml 620 ml Output Total 300 ml 350 ml Balance 2511.2 ml 270 ml Exam Older gentleman lying in bed without samreen tremor. Constitutional: alert Neck: non-tender, other (limitted range of motion after prior neck fusion surgery) Respiratory: clear to auscultation, diminished breath sounds Cardiovascular: nl pulses, regular rate and rhythm Gastrointestinal: nl liver, spleen, non-tender, soft Results Result Diagram: 12/06/16 0506 12/06/16 0506 Results 24 hrs Laboratory Tests Test 12/05/16 13:30 12/05/16 17:38 12/05/16 20:04 12/06/16 05:06 Bedside Glucose 119 101 104 White Blood Count 7.3 Red Blood Count 3.56 L Hemoglobin 11.6 L Hematocrit 35.8 L Mean Corpuscular Volume 100.6 Mean Corpuscular Hemoglobin 32.6 Mean Corpuscular Hemoglobin Concent 32.4 Red Cell Distribution Width 13.1 Platelet Count 195 # Mean Platelet Volume 11.6 H Neutrophils % 54.6 Lymphocytes % 23.7 Monocytes % 19.1 H Eosinophils % 1.5 Basophils % 1.0 Nucleated Red Blood Cells % 0.0 Neutrophils # (Manual) 4.0 Lymphocytes # 1.7 Monocytes # 1.4 H Eosinophils # 0.1 Basophils # 0.1 Nucleated Red Blood Cells # 0.0 Sodium Level 144 Potassium Level 4.1 Chloride Level 108 Carbon Dioxide Level 28 Anion Gap 12 # Blood Urea Nitrogen 12 Creatinine 0.77 Glucose Level 191 Calcium Level 9.3 Phosphorus Level 3.2 Magnesium Level 1.2 L Total Bilirubin 0.5 Direct Bilirubin 0.00 Indirect Bilirubin 0.5 Aspartate Amino Transf (AST/SGOT) 34 Alanine Aminotransferase (ALT/SGPT) 25 Alkaline Phosphatase 106 Total Protein 6.6 # Albumin 3.7 Globulin 2.90 Albumin/Globulin Ratio 1.27 Test 12/06/16 08:17 Bedside Glucose 143 Medications Medications Current Medications Sodium Chloride (NS) 1,000 ml @ 100 mls/hr Q10H IV Last administered on 19:52; Admin Dose 100 MLS/HR; Start 12/05/16 at 04:05 Ondansetron HCl (Zofran Inj) 4 mg Q6H PRN IV NAUSEA AND/OR VOMITING Last administered on 12/05/16 11:41; Admin Dose 4 MG; Start 12/05/16 at 04:30 Acetaminophen (Tylenol Tab) 650 mg Q6H PRN PO PAIN LEVEL 1-3 OR FEVER; Start at 04:30 Morphine Sulfate (morphine) 2 mg Q4H PRN IV SEVERE PAIN LEVEL 7-10 Last administered on 12/06/16 07:03; Admin Dose 2 MG; Start 12/05/16 at 04:30 Famotidine 20 mg 20 mg Q12 PO Last administered on 12/06/16 08:54; Admin Dose 20 MG; Start 12/05/16 at 09:00 Multivitamins/ Thiamine HCl/ Folic Acid/Sodium Chloride (Mvi Adult/ Vitamin B1/ Folic Acid/NS) 1,011.2 ml @ 125 mls/ hr DAILY@09 IVPB Last administered on 12/06 10:45; Admin Dose 125 MLS/HR; Start 12/05/16 at 09:00; Stop 12/08/16 at 08: 00 Chlordiazepoxide (Librium) 25 mg BID PO Last administered on 12/06/16 08:55; Admin Dose 25 MG; Start 12/05/16 at 09:00 Lorazepam (Ativan) 2 mg Q1H PRN IV withdrawal; Start 12/05/16 at 04:30 Amlodipine Besylate (Norvasc) 5 mg DAILY PO Last administered on 12/06/16 08:54 ; Admin Dose 5 MG; Start 12/05/16 at 09:00 Atorvastatin Calcium (Lipitor) 40 mg QHS PO Last administered on 12/05/16 20:11 ; Admin Dose 40 MG; Start 12/05/16 at 21:00 Gabapentin (Neurontin) 300 mg TID PO Last administered on 12/06/16 08:54; Admin Dose 300 MG; Start 12/05/16 at 09:00 Insulin Glargine (Lantus) 10 unit HS SC Last administered on 12/05/16 20:19; Admin Dose 10 UNIT; Start 12/05/16 at 21:00 Tramadol HCl (Ultram) 100 mg Q12H PRN PO PAIN Last administered on 12/05/16 05: 51; Admin Dose 100 MG; Start 12/05/16 at 04:30 Zolpidem Tartrate (Ambien) 10 mg QHS PRN PO INSOMNIA Last administered on 22:14; Admin Dose 10 MG; Start 12/05/16 at 04:30 Miscellaneous Information 1 ea NOTE XX ; Start 12/05/16 at 04:30 Glucose (Glutose) 15 gm Q15M PRN PO DECREASED GLUCOSE; Start 12/05/16 at 04:30 Glucose (Glutose) 22.5 gm Q15M PRN PO DECREASED GLUCOSE; Start 12/05/16 at 04:30 Dextrose (D50w Syringe) 25 ml Q15M PRN IV DECREASED GLUCOSE; Start 12/05/16 at 04:30 Dextrose (D50w Syringe) 50 ml Q15M PRN IV DECREASED GLUCOSE; Start 12/05/16 at 04:30 Glucagon (Glucagen) 1 mg Q15M PRN IM DECREASED GLUCOSE; Start 12/05/16 at 04:30 Glucose (Glutose) 15 gm Q15M PRN BUCCAL DECREASED GLUCOSE; Start 12/05/16 at 04: 30 INOCENCIA SAUNDERS MD Dec 06, 2016 11:10
[2016-12-06 13:08] VITALS: BP 135/69; RESP 20
[2016-12-06 20:00] VITALS: BP 156/82; RESP 20
[2016-12-06] MEDS: ONDANSETRON 4 MG INJ IV PRN (20:15)
[2016-12-06] MEDS: ATORVASTATIN 40 MG TAB PO SCH (20:17)
[2016-12-06] MEDS: INSULIN GLARGINE [LANtus] 3 ML PEN SC SCH (20:25)
[2016-12-06] MEDS: ZOLPIDEM 5 MG TAB PO PRN (21:52)
[2016-12-07] MEDS: traMADol 50 MG TAB PO PRN ×2 (01:26→17:12)
[2016-12-07 02:00] VITALS: BP 156/79; RESP 16
[2016-12-07] MEDS: SOD CHLORIDE 0.9% 1,000 ML IV SCH ×3 (06:12→20:39)
[2016-12-07] MEDS: morphine 2 MG INJ IV PRN ×4 (06:15→19:58)
[2016-12-07 07:19] LABS: BASOPHIL # 0.1 10^3/ul (0.0-0.1); BASOPHILS % 0.8 % (0.0-2.0); EOSINOPHILS # 0.1 10^3/ul (0.0-0.5); EOSINOPHILS % 2.2 % (0.0-7.0); HEMATOCRIT 34.6 % (42.0-52.0); LYMPHOCYTES # 1.9 10^3/ul (0.8-2.9); MEAN CORPUSCULAR HEMOGLOBIN 32.2 pg (29.0-33.0); MEAN CORPUSCULAR HGB CONC 31.8 g/dl (32.0-37.0); MEAN CORPUSCULAR VOLUME 101.2 fl (82.0-101.0); MEAN PLATELET VOLUME 11.1 fl (7.4-10.4); MONOCYTE # 0.9 10^3/ul (0.3-0.9); MONOCYTES % 13.4 % (0.0-11.0); NEUTROPHILS % 53.3 % (39.0-77.0); PLATELET COUNT 148 10^3/UL (140-415); RED BLOOD COUNT 3.42 10^6/ul (4.70-6.10); RED CELL DISTRIBUTION WIDTH 13.1 % (11.5-14.5); WHITE BLOOD COUNT 6.4 10^3/ul (4.8-10.8)
[2016-12-07 07:31] VITALS: BP 149/82; RESP 16
[2016-12-07 07:55] LABS: ALBUMIN 3.4 g/dl (3.3-4.9); ALBUMIN/GLOBULIN RATIO 1.17; CREATININE 0.62 mg/dl (0.61-1.24); POTASSIUM 3.5 mmol/L (3.5-5.1); TOTAL PROTEIN 6.3 g/dl (6.1-8.1)
[2016-12-07] MEDS: MULTIVITAMINS 10 ML, THIAMINE 100 MG, FOLIC ACID 1 MG in SOD CHLORIDE 0.9% 1,000 ML IVPB SCH (07:56)
[2016-12-07] MEDS: GABAPENTIN 300 MG CAP PO SCH ×3 (07:59→20:30)
[2016-12-07] MEDS: AMLODIPINE 5 MG TAB PO SCH (08:00)
[2016-12-07] MEDS: FAMOTIDINE 20 MG TAB PO SCH ×2 (08:00→20:30)
[2016-12-07] MEDS: INSULIN ASPART [NOVOLOG] 3 ML PEN SC SCH ×3 (08:03→17:16)
[2016-12-07] MEDS: CHLORDIAZEPOXIDE 25 MG CAP PO SCH ×2 (08:04→20:30)
[2016-12-07] MEDS ORDERED: AZITHROMYCIN 250 MG TAB PO ONE (11:00)
--- NOTE | 2016-12-07 11:01 | PN ---
Date/Time of Note Date/Time of Note DATE: 12/07/16 TIME: 10:57 Assessment/Plan VTE Prophylaxis VTE Prophylaxis Intervention: SCD's Lines/Catheters IV [facility] Type (from [facility] Peripheral IV Assessment/Plan Chief Complaint/Hosp Course Fall with right posterior pelvis subcutaneous bruise. As noted will resolve given time. Problems: (1) Hepatitis C antibody test positive Status: Chronic Comment: Is a new diagnosis of the patient was unaware of. Pending at this time is a viral RNA. He will ultimately need if that test is positive, GI consultation. Been counseled that this in combination with alcoholism is extremely dangerous to his health (2) Caries involving multiple surfaces of tooth Status: Acute Comment: Course of antibiotic therapy using azithromycin for simplicity (3) Essential hypertension Status: Chronic Comment: Adequate control at the present time (4) Diabetes mellitus type 2 in nonobese Status: Chronic Comment: Adequate control at the present time on the current regimen (5) Alcoholism /alcohol abuse Status: Chronic Comment: We are moving past the point where DTs is a risk. I will put an end date on his Librium and he should be able to be discharged tomorrow morning. This will allow us to cleared any risk of DTs if in withdrawal syndrome (6) Tobacco abuse Status: Chronic Comment: Strongly counseled (7) Hyperlipidemia associated with type 2 diabetes mellitus Status: Chronic Comment: On appropriate therapy Subjective 24 Hr Interval Summary Free Text/Dictation Patient reports he is still having significant pain where he has a large right posterior back hematoma. He reports he is otherwise feeling okay although he also has teeth pain Constitutional: no complaints (No fevers chills or sweats) Respiratory: no complaints (No shortness of breath or wheezing) Cardiovascular: no complaints Gastrointestinal: no complaints Exam/Review of Systems Vital Signs Vitals Vital Signs Date Time Temp Pulse Resp B/P Pulse Ox O2 Delivery O2 Flow Rate FiO2 12/07/16 07:31 98.3 68 16 149/82 94 12/05/16 16:16 Room Air Intake and Output 12/06/16 12/06/16 12/07/16 15:00 23:00 07:00 Intake Total 200 ml 2011.2 ml 1960 ml Output Total 650 ml 500 ml Balance 200 ml 1361.2 ml 1460 ml Exam More alert and cooperative today ENMT: other (Patient with multiple caries with what appears to be a left lower jaw dental infection) Neck: non-tender, supple Respiratory: clear to auscultation, normal air movement Cardiovascular: nl pulses, regular rate and rhythm Gastrointestinal: nl liver, spleen, non-tender, soft Results Result Diagram: 12/07/16 0658 12/07/16 0658 Results 24 hrs Laboratory Tests Test 12/06/16 12:04 12/06/16 17:18 12/06/16 20:22 12/07/16 06:58 Bedside Glucose 82 119 104 White Blood Count 6.4 Red Blood Count 3.42 L Hemoglobin 11.0 L Hematocrit 34.6 L Mean Corpuscular Volume 101.2 H Mean Corpuscular Hemoglobin 32.2 Mean Corpuscular Hemoglobin Concent 31.8 L Red Cell Distribution Width 13.1 Platelet Count 148 # Mean Platelet Volume 11.1 H Neutrophils % 53.3 Lymphocytes % 30.0 Monocytes % 13.4 H Eosinophils % 2.2 Basophils % 0.8 Nucleated Red Blood Cells % 0.0 Neutrophils # (Manual) 3.4 Lymphocytes # 1.9 Monocytes # 0.9 Eosinophils # 0.1 Basophils # 0.1 Nucleated Red Blood Cells # 0.0 Sodium Level 142 Potassium Level 3.5 Chloride Level 106 Carbon Dioxide Level 27 Anion Gap 13 Blood Urea Nitrogen 9 Creatinine 0.62 Glucose Level 64 #L Hemoglobin A1c 6.6 H Calcium Level 9.0 Total Bilirubin 1.0 Direct Bilirubin 0.00 Indirect Bilirubin 1.0 Aspartate Amino Transf (AST/SGOT) 29 Alanine Aminotransferase (ALT/SGPT) 20 Alkaline Phosphatase 89 Total Protein 6.3 Albumin 3.4 Globulin 2.90 Albumin/Globulin Ratio 1.17 Test 12/07/16 07:55 Bedside Glucose 71 Medications Medications Current Medications Sodium Chloride (NS) 1,000 ml @ 100 mls/hr Q10H IV Last administered on 06:12; Admin Dose 100 MLS/HR; Start 12/05/16 at 04:05 Ondansetron HCl (Zofran Inj) 4 mg Q6H PRN IV NAUSEA AND/OR VOMITING Last administered on 12/06/16 20:15; Admin Dose 4 MG; Start 12/05/16 at 04:30 Acetaminophen (Tylenol Tab) 650 mg Q6H PRN PO PAIN LEVEL 1-3 OR FEVER; Start at 04:30 Morphine Sulfate (morphine) 2 mg Q4H PRN IV SEVERE PAIN LEVEL 7-10 Last administered on 12/07/16 10:38; Admin Dose 2 MG; Start 12/05/16 at 04:30 Famotidine 20 mg 20 mg Q12 PO Last administered on 12/07/16 08:00; Admin Dose 20 MG; Start 12/05/16 at 09:00 Multivitamins/ Thiamine HCl/ Folic Acid/Sodium Chloride (Mvi Adult/ Vitamin B1/ Folic Acid/NS) 1,011.2 ml @ 125 mls/ hr DAILY@09 IVPB Last administered on 12/07 07:56; Admin Dose 125 MLS/HR; Start 12/05/16 at 09:00; Stop 12/08/16 at 08: 00 Chlordiazepoxide (Librium) 25 mg BID PO Last administered on 12/07/16 08:04; Admin Dose 25 MG; Start 12/05/16 at 09:00 Lorazepam (Ativan) 2 mg Q1H PRN IV withdrawal; Start 12/05/16 at 04:30 Amlodipine Besylate (Norvasc) 5 mg DAILY PO Last administered on 12/07/16 08:00 ; Admin Dose 5 MG; Start 12/05/16 at 09:00 Atorvastatin Calcium (Lipitor) 40 mg QHS PO Last administered on 12/06/16 20:17 ; Admin Dose 40 MG; Start 12/05/16 at 21:00 Gabapentin (Neurontin) 300 mg TID PO Last administered on 12/07/16 07:59; Admin Dose 300 MG; Start 12/05/16 at 09:00 Insulin Glargine (Lantus) 10 unit HS SC Last administered on 12/06/16 20:25; Admin Dose 10 UNIT; Start 12/05/16 at 21:00 Tramadol HCl (Ultram) 100 mg Q12H PRN PO PAIN Last administered on 12/07/16 01: 26; Admin Dose 100 MG; Start 12/05/16 at 04:30 Zolpidem Tartrate (Ambien) 10 mg QHS PRN PO INSOMNIA Last administered on 21:52; Admin Dose 10 MG; Start 12/05/16 at 04:30 Miscellaneous Information 1 ea NOTE XX ; Start 12/05/16 at 04:30 Glucose (Glutose) 15 gm Q15M PRN PO DECREASED GLUCOSE; Start 12/05/16 at 04:30 Glucose (Glutose) 22.5 gm Q15M PRN PO DECREASED GLUCOSE; Start 12/05/16 at 04:30 Dextrose (D50w Syringe) 25 ml Q15M PRN IV DECREASED GLUCOSE; Start 12/05/16 at 04:30 Dextrose (D50w Syringe) 50 ml Q15M PRN IV DECREASED GLUCOSE; Start 12/05/16 at 04:30 Glucagon (Glucagen) 1 mg Q15M PRN IM DECREASED GLUCOSE; Start 12/05/16 at 04:30 Glucose (Glutose) 15 gm Q15M PRN BUCCAL DECREASED GLUCOSE; Start 12/05/16 at 04: 30 INOCENCIA SAUNDERS MD Dec 07, 2016 11:01
--- NOTE | 2016-12-07 11:42 | PN ---
Date/Time of Note Date/Time of Note DATE: 12/07/16 TIME: 11:41 Assessment/Plan Lines/Catheters IV C[facility]ter Type (from [facility]): Peripheral IV Assessment/Plan Chief Complaint/Hosp Course At the present time the patient's abdominal examination is entirely benign. He has had a bowel movement. Patient may be started on a diet. Problems: Assessment/Plan Patient is in early DTs Plan: Medical management As there are no further surgical recommendations, will see again prn your request Subjective 24 Hr Interval Summary Patient is much more awake and alert Abdominal examination is benign Tolerating diet Exam/Review of Systems Vital Signs Vitals Vital Signs Date Time Temp Pulse Resp B/P Pulse Ox O2 Delivery O2 Flow Rate FiO2 12/07/16 07:31 98.3 68 16 149/82 94 12/05/16 16:16 Room Air Intake and Output 12/06/16 12/06/16 12/07/16 15:00 23:00 07:00 Intake Total 200 ml 2011.2 ml 1960 ml Output Total 650 ml 500 ml Balance 200 ml 1361.2 ml 1460 ml Results Result Diagram: 12/07/16 0658 12/07/16 0658 EVONNE CARO MD Dec 07, 2016 11:42
[2016-12-07 13:35] VITALS: BP 118/67; RESP 20
[2016-12-07 13:48] VITALS: BP 142/74; RESP 20
[2016-12-07 19:34] VITALS: BP 146/76; RESP 20
[2016-12-07] MEDS: ATORVASTATIN 40 MG TAB PO SCH (20:30)
[2016-12-07] MEDS: INSULIN GLARGINE [LANtus] 3 ML PEN SC SCH (20:35)
[2016-12-07] MEDS: ZOLPIDEM 5 MG TAB PO PRN (21:56)
[2016-12-08] MEDS: morphine 2 MG INJ IV PRN ×5 (00:06→18:26)
[2016-12-08 01:37] VITALS: BP 134/72; RESP 20
[2016-12-08] MEDS: SOD CHLORIDE 0.9% 1,000 ML IV SCH ×5 (02:05→22:05)
[2016-12-08 07:43] VITALS: BP 141/78; RESP 18
[2016-12-08] MEDS: traMADol 50 MG TAB PO PRN ×2 (08:16→20:43)
[2016-12-08] MEDS: FAMOTIDINE 20 MG TAB PO SCH ×2 (08:16→20:44)
[2016-12-08] MEDS: GABAPENTIN 300 MG CAP PO SCH ×3 (08:16→20:43)
[2016-12-08] MEDS: AMLODIPINE 5 MG TAB PO SCH (08:16)
[2016-12-08] MEDS: INSULIN ASPART [NOVOLOG] 3 ML PEN SC SCH ×3 (08:21→17:22)
--- NOTE | 2016-12-08 10:52 | PN ---
Date/Time of Note Date/Time of Note DATE: 12/08/16 TIME: 10:46 Assessment/Plan VTE Prophylaxis VTE Prophylaxis Intervention: SCD's Lines/Catheters IV Catheter Type (from Nrsg): Peripheral IV Assessment/Plan Assessment/Plan 1. Alcohol withdrawal, with tremor, on banana bag and ativan prn 2. Left back/flank hematoma from fall, stable, pain management 3. DM, controlled 4. HTN, stable 5. Dyslipidemia, 6. Hepatitis C 7. DVT prophylaxis: SCD's Subjective 24 Hr Interval Summary Free Text/Dictation tremor on hands, still pain on left back/flank Exam/Review of Systems Vital Signs Vitals Vital Signs Date Time Temp Pulse Resp B/P Pulse Ox O2 Delivery O2 Flow Rate FiO2 12/08/16 07:43 97.7 74 18 141/78 100 12/05/16 16:16 Room Air Intake and Output 12/07/16 12/07/16 12/08/16 15:00 23:00 07:00 Intake Total 2051.2 ml 1480 ml Output Total 1200 ml 850 ml Balance 851.2 ml 630 ml Exam Constitutional: alert, oriented, well developed Psych: nl mood/affect, no complaints Head: atraumatic, normocephalic Eyes: EOMI, PERRL, nl conjunctiva, nl lids, nl sclera ENMT: nl external ears & nose, nl lips & teeth, nl nasal mucosa & septum Neck: non-tender, supple Respiratory: clear to auscultation, normal air movement, No congested cough, No crackles/rales, No diminished breath sounds, No intercostal retraction, No labored breathing, No other, No respirations, No tactile fremitus, No wheezing Cardiovascular: nl pulses, regular rate and rhythm, No S3, No S4, No bruits, No diastolic murmur, No edema, No gallop, No irregular rhythm, No jugular venous distention (JVD), No murmurs/extra sounds, No other, No rub, No systolic murmur Gastrointestinal: nl liver, spleen, non-tender, soft, No ascites, No bowel sounds, No distended, No firm, No hepatomegaly, No mass , No other, No rebound or guarding, No splenomegaly, No surgical scars, No tender Musculoskeletal: nl extremities to inspection, other (hematoma on left lower back/flank) Extremities: normal pulses, No calf tenderness, No clubbing, No cyanosis, No edema, No other, No palpable cord, No pitting pedal edema, No tenderness Neurological: [employer] II-XII intact, nl mental status, nl speech, nl strength Skin: nl turgor Lymph: nl lymph nodes Results Result Diagram: 12/07/16 0658 12/07/16 0658 Results 24 hrs Laboratory Tests Test 12/07/16 12:40 12/07/16 17:11 12/07/16 20:32 12/08/16 08:01 Bedside Glucose 141 119 77 73 Medications Medications Current Medications Sodium Chloride (NS) 1,000 ml @ 100 mls/hr Q10H IV Last administered on 06:53; Admin Dose 100 MLS/HR; Start 12/05/16 at 04:05 Ondansetron HCl (Zofran Inj) 4 mg Q6H PRN IV NAUSEA AND/OR VOMITING Last administered on 12/06/16 20:15; Admin Dose 4 MG; Start 12/05/16 at 04:30 Acetaminophen (Tylenol Tab) 650 mg Q6H PRN PO PAIN LEVEL 1-3 OR FEVER; Start at 04:30 Morphine Sulfate (morphine) 2 mg Q4H PRN IV SEVERE PAIN LEVEL 7-10 Last administered on 12/08/16 10:22; Admin Dose 2 MG; Start 12/05/16 at 04:30 Famotidine (Pepcid) 20 mg Q12 PO Last administered on 12/08/16 08:16; Admin Dose 20 MG; Start 12/05/16 at 09:00 Lorazepam (Ativan) 2 mg Q1H PRN IV withdrawal; Start 12/05/16 at 04:30 Amlodipine Besylate (Norvasc) 5 mg DAILY PO Last administered on 12/08/16 08:16 ; Admin Dose 5 MG; Start 12/05/16 at 09:00 Atorvastatin Calcium (Lipitor) 40 mg QHS PO Last administered on 12/07/16 20:30 ; Admin Dose 40 MG; Start 12/05/16 at 21:00 Gabapentin (Neurontin) 300 mg TID PO Last administered on 12/08/16 08:16; Admin Dose 300 MG; Start 12/05/16 at 09:00 Insulin Glargine (Lantus) 10 unit HS SC Last administered on 12/07/16 20:35; Admin Dose 10 UNIT; Start 12/05/16 at 21:00 Tramadol HCl (Ultram) 100 mg Q12H PRN PO PAIN Last administered on 12/08/16 08: 16; Admin Dose 100 MG; Start 12/05/16 at 04:30 Zolpidem Tartrate (Ambien) 10 mg QHS PRN PO INSOMNIA Last administered on 21:56; Admin Dose 10 MG; Start 12/05/16 at 04:30 Miscellaneous Information 1 ea NOTE XX ; Start 12/05/16 at 04:30 Glucose (Glutose) 15 gm Q15M PRN PO DECREASED GLUCOSE; Start 12/05/16 at 04:30 Glucose (Glutose) 22.5 gm Q15M PRN PO DECREASED GLUCOSE; Start 12/05/16 at 04:30 Dextrose (D50w Syringe) 25 ml Q15M PRN IV DECREASED GLUCOSE; Start 12/05/16 at 04:30 Dextrose (D50w Syringe) 50 ml Q15M PRN IV DECREASED GLUCOSE; Start 12/05/16 at 04:30 Glucagon (Glucagen) 1 mg Q15M PRN IM DECREASED GLUCOSE; Start 12/05/16 at 04:30 Glucose (Glutose) 15 gm Q15M PRN BUCCAL DECREASED GLUCOSE; Start 12/05/16 at 04: 30 RHODA ALVAREZ MD Dec 08, 2016 10:52
[2016-12-08 14:00] VITALS: BP 153/78; RESP 18
[2016-12-08 19:31] VITALS: BP 167/81; RESP 20
[2016-12-08] MEDS: ATORVASTATIN 40 MG TAB PO SCH (20:43)
[2016-12-08] MEDS: INSULIN GLARGINE [LANtus] 3 ML PEN SC SCH (20:49)
[2016-12-08] MEDS: ZOLPIDEM 5 MG TAB PO PRN (21:51)
[2016-12-09 01:29] VITALS: BP 139/73; RESP 20
[2016-12-09] MEDS: morphine 2 MG INJ IV PRN ×5 (02:43→20:43)
[2016-12-09 05:45] LABS: BASOPHIL # 0.1 10^3/ul (0.0-0.1); BASOPHILS % 0.7 % (0.0-2.0); EOSINOPHILS # 0.2 10^3/ul (0.0-0.5); EOSINOPHILS % 2.5 % (0.0-7.0); HEMATOCRIT 34.7 % (42.0-52.0); HEMOGLOBIN 11.3 g/dl (14.0-18.0); LYMPHOCYTES # 1.5 10^3/ul (0.8-2.9); LYMPHOCYTES % 21.3 % (15.0-51.0); MEAN CORPUSCULAR HEMOGLOBIN 33.2 pg (29.0-33.0); MEAN CORPUSCULAR HGB CONC 32.6 g/dl (32.0-37.0); MEAN CORPUSCULAR VOLUME 102.1 fl (82.0-101.0); MEAN PLATELET VOLUME 11.7 fl (7.4-10.4); MONOCYTE # 0.8 10^3/ul (0.3-0.9); MONOCYTES % 11.6 % (0.0-11.0); NEUTROPHILS % 63.6 % (39.0-77.0); PLATELET COUNT 170 10^3/UL (140-415); RED CELL DISTRIBUTION WIDTH 12.7 % (11.5-14.5); WHITE BLOOD COUNT 7.1 10^3/ul (4.8-10.8)
[2016-12-09] MEDS: SOD CHLORIDE 0.9% 1,000 ML IV SCH ×2 (05:52→08:05)
[2016-12-09 06:09] LABS: ALBUMIN 3.4 g/dl (3.3-4.9); ALBUMIN/GLOBULIN RATIO 1.17; BILIRUBIN,INDIRECT 0.6 mg/dl (0-1.1); BILIRUBIN,TOTAL 0.6 mg/dl (0.2-1.3); CALCIUM 9.1 mg/dl (8.4-10.2); CREATININE 0.61 mg/dl (0.61-1.24); TOTAL PROTEIN 6.3 g/dl (6.1-8.1)
[2016-12-09 07:27] VITALS: BP 133/69; RESP 18
[2016-12-09] MEDS: INSULIN ASPART [NOVOLOG] 3 ML PEN SC SCH ×3 (07:55→20:49)
[2016-12-09] MEDS: AMLODIPINE 5 MG TAB PO SCH (08:40)
[2016-12-09] MEDS: traMADol 50 MG TAB PO PRN (08:40)
[2016-12-09] MEDS: GABAPENTIN 300 MG CAP PO SCH ×3 (08:40→20:45)
[2016-12-09] MEDS: FAMOTIDINE 20 MG TAB PO SCH ×2 (08:40→20:45)
--- NOTE | 2016-12-09 10:54 | PN ---
Date/Time of Note Date/Time of Note DATE: 12/09/16 TIME: 10:47 Assessment/Plan VTE Prophylaxis VTE Prophylaxis Intervention: SCD's Lines/Catheters IV Catheter Type (from Nrs): Saline Lock Assessment/Plan Chief Complaint/Hosp Course 1. EtOH intoxication/withdrawal. Resolved. -Start oral B1 and ativan prn 2. Type 2 diabetes. With too tight glycemic control. -Due to patient's noncompliance, we are going to stop pre-meal insulin and will start patient on Tradjenta. Will consider metformin +Tradjenta on dc as patient is noncompliant with premeal insulin. Continue Lantus and ISS. 3. HTN, stable -Continue antihypertensive 4. Dyslipidemia -On statin 6. History of hepatitis C 7. Possible Homelessness. -SW following to find more social history and support system 8.Possible noncompliance. -Counselled. Will review home meds and will titrate as indicated with pt's poor compliance Plan: Patient with possible homelessness status. He also required assist with ambulation and at fall risk. Case management following for placement to [facility] versus PT if patient with some sort of family support. Case discussed with Problems: Subjective 24 Hr Interval Summary Free Text/Dictation Overall, patient with improvement. Ambulate with assist. Exam/Review of Systems Vital Signs Vitals Vital Signs Date Time Temp Pulse Resp B/P Pulse Ox O2 Delivery O2 Flow Rate FiO2 12/09/16 07:27 98.5 77 18 133/69 97 12/05/16 16:16 Room Air Intake and Output 12/08/16 12/08/16 12/09/16 15:00 23:00 07:00 Intake Total 1840 ml 1240 ml Output Total 350 ml 1250 ml 1100 ml Balance -350 ml 590 ml 140 ml Exam General: Well developed,adequately built, not in any acute distress . HEENT: Normocephalic, Atraumatic, No laceration or hematoma; Eyes: PEERL, Conjunctiva clear, Anicteric sclera Neck: Supple without any lymphadenopathy, nontender, no JVD, no carotid bruits, trachea midline, no thyromegaly Cardiac: S1, S2 auscultated, regular rhythm and rate, no mumurs or gallop Pulmonary: Normal respiratory effort. Chest clear to auscultation bilaterally, no adventitious breath sounds GI: Abdomen normal to inspection. Soft, non tender, non- distended, no masses, no rebound tenderness or guarding. Bowel sounds active on all four quadrants Genitourinary: Deferred Extremities: No cyanosis, clubbing, or edema. Pulses [2+] bilaterally. Full ROM on all four extremities. No focal weakness appreciated. Neurologic: Alert to person, place, time, and situation. Affect appropriate, intact sensation. Skin: Clean,dry, and intact. No ecchymosis, no rashes, or lesions Results Result Diagram: 12/09/16 0516 12/09/16 0515 Results 24 hrs Laboratory Tests Test 12/08/16 12:07 12/08/16 17:19 12/08/16 20:45 12/09/16 05:15 Bedside Glucose 73 87 130 Sodium Level 135 Potassium Level 4.0 Chloride Level 100 Carbon Dioxide Level 29 Anion Gap 10 Blood Urea Nitrogen 13 Creatinine 0.61 Glucose Level 180 # Calcium Level 9.1 Total Bilirubin 0.6 Direct Bilirubin 0.00 Indirect Bilirubin 0.6 Aspartate Amino Transf (AST/SGOT) 28 Alanine Aminotransferase (ALT/SGPT) 21 Alkaline Phosphatase 118 Total Protein 6.3 Albumin 3.4 Globulin 2.90 Albumin/Globulin Ratio 1.17 Test 12/09/16 05:16 12/09/16 07:40 White Blood Count 7.1 Red Blood Count 3.40 L Hemoglobin 11.3 L Hematocrit 34.7 L Mean Corpuscular Volume 102.1 H Mean Corpuscular Hemoglobin 33.2 H Mean Corpuscular Hemoglobin Concent 32.6 Red Cell Distribution Width 12.7 Platelet Count 170 Mean Platelet Volume 11.7 H Neutrophils % 63.6 Lymphocytes % 21.3 Monocytes % 11.6 H Eosinophils % 2.5 Basophils % 0.7 Nucleated Red Blood Cells % 0.0 Neutrophils # (Manual) 4.5 Lymphocytes # 1.5 Monocytes # 0.8 Eosinophils # 0.2 Basophils # 0.1 Nucleated Red Blood Cells # 0.0 Bedside Glucose 163 Medications Medications Current Medications Sodium Chloride (NS) 1,000 ml @ 100 mls/hr Q10H IV Last administered on t 05:52; Admin Dose 100 MLS/HR; Start 12/05/16 at 04:05 Ondansetron HCl (Zofran Inj) 4 mg Q6H PRN IV NAUSEA AND/OR VOMITING Last administered on 12/06/16 20:15; Admin Dose 4 MG; Start 12/05/16 at 04:30 Acetaminophen (Tylenol Tab) 650 mg Q6H PRN PO PAIN LEVEL 1-3 OR FEVER; Start at 04:30 Morphine Sulfate (morphine) 2 mg Q4H PRN IV SEVERE PAIN LEVEL 7-10 Last administered on 12/09/16 10:30; Admin Dose 2 MG; Start 12/05/16 at 04:30 Famotidine (Pepcid) 20 mg Q12 PO Last administered on 12/09/16 08:40; Admin Dose 20 MG; Start 12/05/16 at 09:00 Lorazepam (Ativan) 2 mg Q1H PRN IV withdrawal; Start 12/05/16 at 04:30 Amlodipine Besylate (Norvasc) 5 mg DAILY PO Last administered on 12/09/16 08:40 ; Admin Dose 5 MG; Start 12/05/16 at 09:00 Atorvastatin Calcium (Lipitor) 40 mg QHS PO Last administered on 12/08/16 20:43 ; Admin Dose 40 MG; Start 12/05/16 at 21:00 Gabapentin (Neurontin) 300 mg TID PO Last administered on 12/09/16 08:40; Admin Dose 300 MG; Start 12/05/16 at 09:00 Insulin Glargine (Lantus) 10 unit HS SC Last administered on 12/08/16 20:49; Admin Dose 10 UNIT; Start 12/05/16 at 21:00 Tramadol HCl (Ultram) 100 mg Q12H PRN PO PAIN Last administered on 12/09/16 08: 40; Admin Dose 100 MG; Start 12/05/16 at 04:30 Zolpidem Tartrate (Ambien) 10 mg QHS PRN PO INSOMNIA Last administered on 21:51; Admin Dose 10 MG; Start 12/05/16 at 04:30 Miscellaneous Information 1 ea NOTE XX ; Start 12/05/16 at 04:30 Glucose (Glutose) 15 gm Q15M PRN PO DECREASED GLUCOSE; Start 12/05/16 at 04:30 Glucose (Glutose) 22.5 gm Q15M PRN PO DECREASED GLUCOSE; Start 12/05/16 at 04:30 Dextrose (D50w Syringe) 25 ml Q15M PRN IV DECREASED GLUCOSE; Start 12/05/16 at 04:30 Dextrose (D50w Syringe) 50 ml Q15M PRN IV DECREASED GLUCOSE; Start 12/05/16 at 04:30 Glucagon (Glucagen) 1 mg Q15M PRN IM DECREASED GLUCOSE; Start 12/05/16 at 04:30 Glucose (Glutose) 15 gm Q15M PRN BUCCAL DECREASED GLUCOSE; Start 12/05/16 at 04: 30 RODY MENDOZA V. HARNESS FITTER Dec 09, 2016 10:54
[2016-12-09] MEDS: THIAMINE 100 MG TAB PO SCH (13:08)
[2016-12-09] MEDS: LINAGLIPTIN 5 MG TABLET PO SCH (13:08)
[2016-12-09 14:42] VITALS: BP 135/76; RESP 18
[2016-12-09 14:44] VITALS: BP 143/75; RESP 18
[2016-12-09] MEDS: LORAZEPAM 2 MG INJ IV PRN ×2 (16:07→21:28)
[2016-12-09 19:20] VITALS: BP 136/72; RESP 20
[2016-12-09] MEDS: ATORVASTATIN 40 MG TAB PO SCH (20:45)
[2016-12-09] MEDS: ARTIFICIAL TEARS 15 ML OPH BOTH EYES PRN (20:46)
[2016-12-09] MEDS: INSULIN GLARGINE [LANtus] 3 ML PEN SC SCH (20:51)
[2016-12-10] MEDS: traMADol 50 MG TAB PO PRN ×3 (00:58→23:13)
[2016-12-10] MEDS: INSULIN ASPART [NOVOLOG] 3 ML PEN SC SCH ×5 (01:03→17:44)
[2016-12-10 02:00] VITALS: BP 131/80; RESP 18
[2016-12-10] MEDS: ACCU-CHEK XX SCH (02:00)
[2016-12-10] MEDS: morphine 2 MG INJ IV PRN ×4 (04:13→20:30)
[2016-12-10 07:35] VITALS: BP 143/74; RESP 16
[2016-12-10] MEDS: GABAPENTIN 300 MG CAP PO SCH ×3 (08:08→20:29)
[2016-12-10] MEDS: THIAMINE 100 MG TAB PO SCH (08:08)
[2016-12-10] MEDS: LINAGLIPTIN 5 MG TABLET PO SCH (08:08)
[2016-12-10] MEDS: AMLODIPINE 5 MG TAB PO SCH (08:08)
[2016-12-10] MEDS: FAMOTIDINE 20 MG TAB PO SCH ×2 (08:08→20:29)
[2016-12-10] MEDS: ARTIFICIAL TEARS 15 ML OPH BOTH EYES PRN (08:09)
--- NOTE | 2016-12-10 08:44 | PDOCDIS ---
Discharge Instructions CONDITION Patient Condition: Stable HOME CARE INSTRUCTIONS: Special Diet: 1800 maryam diet FOLLOW UP/APPOINTMENTS Follow-up Plan 1.Follow up with primary care physician in 1 week If you don't have one please let someone know, we can give you resources that may help you pick one. You may also call your insurance company to assign one to you. Review your medication list with your nurse before leaving and if you need new prescriptions please let your nurse know. I may have made changes to your home medications or given you new prescriptions, please let your primary doctor know as well. Stay compliant with your medications and report any side effects to your PCP or pharmacist. Return to the ER if you have any concerns and cannot reach your doctors or call your insurance company, they usually have a nurse that can help you. 2. Call 911 or go to the nearest emergency room if experiencing loss of consciousness, dizziness, chest pain, shortness of breath, vomiting/abdominal pain, speech difficulties, motor weakness or any unusual symptoms. RODY MENDOZA NP Dec 10, 2016 08:44
[2016-12-10] MEDS ORDERED: METF500T4 PO (08:49)
[2016-12-10] MEDS ORDERED: LINA5TAB PO (08:49)
[2016-12-10 14:08] VITALS: BP 124/56; RESP 20
--- NOTE | 2016-12-10 16:00 | PN ---
Date/Time of Note Date/Time of Note DATE: 12/10/16 TIME: 15:57 Assessment/Plan VTE Prophylaxis VTE Prophylaxis Intervention: SCD's Lines/Catheters IV [facility] Saline Lock Urinary Cath still in place: No Assessment/Plan Chief Complaint/Hosp Course 1. EtOH intoxication/withdrawal. Resolved. -Continue oral B1 and ativan prn 2. Type 2 diabetes. With too tight glycemic control. -Continue insulin while in house. Will consider metformin +Tradjenta on dc as patient is noncompliant with premeal insulin. 3. HTN, stable -Continue antihypertensive 4. Dyslipidemia -On statin 6. History of hepatitis C 7.Possible noncompliance. -Counselled. Will review home meds and will titrate as indicated with pt's poor compliance Plan: Needs PT re-eval for stairs training and thereafter DC home with PT Case discussed with Problems: Subjective 24 Hr Interval Summary Free Text/Dictation No acute distress. Exam/Review of Systems Vital Signs Vitals Vital Signs Date Time Temp Pulse Resp B/P Pulse Ox O2 Delivery O2 Flow Rate FiO2 12/10/16 14:08 97.8 70 20 124/56 99 Intake and Output 12/09/16 12/09/16 12/10/16 14:59 22:59 06:59 Intake Total 500 ml 1200 ml 620 ml Output Total 1800 ml 700 ml Balance 500 ml -600 ml -80 ml Exam General: Well developed,adequately built, not in any acute distress . HEENT: Normocephalic, Atraumatic, No laceration or hematoma; Eyes: PEERL, Conjunctiva clear, Anicteric sclera Neck: Supple without any lymphadenopathy, nontender, no JVD, no carotid bruits, trachea midline, no thyromegaly Cardiac: S1, S2 auscultated, regular rhythm and rate, no mumurs or gallop Pulmonary: Normal respiratory effort. Chest clear to auscultation bilaterally, no adventitious breath sounds GI: Abdomen normal to inspection. Soft, non tender, non- distended, no masses, no rebound tenderness or guarding. Bowel sounds active on all four quadrants Genitourinary: Deferred Extremities: No cyanosis, clubbing, or edema. Pulses [2+] bilaterally. Full ROM on all four extremities. No focal weakness appreciated. Neurologic: Alert to person, place, time, and situation. Affect appropriate, intact sensation. Skin: Clean,dry, and intact. No ecchymosis, no rashes, or lesions Results Result Diagram: 12/09/1616 12/09/16 0515 Results 24 hrs Laboratory Tests Test 12/09/16 17:10 12/09/16 20:48 12/10/16 01:01 12/10/16 05:33 Bedside Glucose 211 117 146 100 Test 12/10/16 08:03 12/10/16 11:48 Bedside Glucose 106 135 Medications Medications Current Medications Ondansetron HCl (Zofran Inj) 4 mg Q6H PRN IV NAUSEA AND/OR VOMITING Last administered on 12/06/16 20:15; Admin Dose 4 MG; Start 12/05/16 at 04:30 Acetaminophen (Tylenol Tab) 650 mg Q6H PRN PO PAIN LEVEL 1-3 OR FEVER; Start at 04:30 Morphine Sulfate (morphine) 2 mg Q4H PRN IV SEVERE PAIN LEVEL 7-10 Last administered on 12/10/16 12:52; Admin Dose 2 MG; Start 12/05/16 at 04:30 Famotidine (Pepcid) 20 mg Q12 PO Last administered on 12/10/16 08:08; Admin Dose 20 MG; Start 12/05/16 at 09:00 Lorazepam (Ativan) 2 mg Q1H PRN IV withdrawal Last administered on 12/09/16 21: 28; Admin Dose 2 MG; Start 12/05/16 at 04:30 Amlodipine Besylate (Norvasc) 5 mg DAILY PO Last administered on 12/10/16 08:08 ; Admin Dose 5 MG; Start 12/05/16 at 09:00 Atorvastatin Calcium (Lipitor) 40 mg QHS PO Last administered on 12/09/16 20:45 ; Admin Dose 40 MG; Start 12/05/16 at 21:00 Gabapentin (Neurontin) 300 mg TID PO Last administered on 12/10/16 12:51; Admin Dose 300 MG; Start 12/05/16 at 09:00 Insulin Glargine (Lantus) 10 unit HS SC Last administered on 12/09/16 20:51; Admin Dose 10 UNIT; Start 12/05/16 at 21:00 Tramadol HCl (Ultram) 100 mg Q12H PRN PO PAIN Last administered on 12/10/16 09: 24; Admin Dose 100 MG; Start 12/05/16 at 04:30 Zolpidem Tartrate (Ambien) 10 mg QHS PRN PO INSOMNIA Last administered on 21:51; Admin Dose 10 MG; Start 12/05/16 at 04:30 Miscellaneous Information 1 ea NOTE XX ; Start 12/05/16 at 04:30 Glucose (Glutose) 15 gm Q15M PRN PO DECREASED GLUCOSE; Start 12/05/16 at 04:30 Glucose (Glutose) 22.5 gm Q15M PRN PO DECREASED GLUCOSE; Start 12/05/16 at 04:30 Dextrose (D50w Syringe) 25 ml Q15M PRN IV DECREASED GLUCOSE; Start 12/05/16 at 04:30 Dextrose (D50w Syringe) 50 ml Q15M PRN IV DECREASED GLUCOSE; Start 12/05/16 at 04:30 Glucagon (Glucagen) 1 mg Q15M PRN IM DECREASED GLUCOSE; Start 12/05/16 at 04:30 Glucose (Glutose) 15 gm Q15M PRN BUCCAL DECREASED GLUCOSE; Start 12/05/16 at 04: 30 Thiamine HCl (Vitamin B1) 100 mg DAILY PO Last administered on 12/10/16 08:08; Admin Dose 100 MG; Start 12/09/16 at 11:00 Linagliptin (Tradjenta) 5 mg DAILY PO Last administered on 12/10/16 08:08; Admin Dose 5 MG; Start 12/09/16 at 11:00 Diagnostic Test (Pha) (Accu-Chek) 1 ea 02 XX ; Start 12/10/16 at 02:00 Insulin Aspart (Novolog Insulin Pen) NOVOLOG *MODERATE* ALGORI... Q4 SC Last administered on 12/10/16 01:03; Admin Dose 2 UNIT; Start 12/09/16 at 21:00 Eye Lubricant (Artificial Tears Oph) 2 drop Q6H PRN BOTH EYES DRY EYES Last administered on 12/10/16 08:09; Admin Dose 2 DROP; Start 12/09/16 at 18:00 RODY MENDOZA NP Dec 10, 2016 16:00
--- NOTE | 2016-12-10 17:22 | DS ---
DATE OF ADMISSION: 12/05/2016 DATE OF DISCHARGE: 12/10/2016 PC SUPPORT SPECIALIST: Dr. Page, Surgery. DISCHARGE DIAGNOSES: 1. Alcohol (ETOH) intoxication/withdrawal, resolved. 2. Type 2 diabetes. 3. Hypertension. 4. Dyslipidemia. 5. History of hepatitis C. 6. Possible noncompliance. HOSPITAL COURSE: This is a 61-year-old gentleman with the past medical history of binge drinking, type 2 diabetes, hypertension, hepatitis C, possible noncompliance, dyslipidemia, who was brought to the emergency room with the complaints of headache, neck pain, and abdominal pain. The patient has been drinking heavily, mainly vodka and he also fell recently. In the emergency room the patient was altered, as he was intoxicated with alcohol. CT head was negative for any acute findings. There was no fractures identified. Initial workup showed a soft tissue lesion in the right iliac likely resolving hematoma. Initial labs with slightly elevated sodium of 146. Otherwise unremarkable. The patient was admitted for further evaluation. The patient was started on IV banana bag, and as needed Ativan. He was evaluated by geriatric social worker. The patient was given alcohol cessation education. The patient was also evaluated by Surgery for possible concern of ileus and according to his recommendation, his abdominal exam was entirely benign. The patient also is having regular bowel movements. There is no further followup needed in regards to the imaging findings. The patient was also started on a diet which he was able to tolerate. The patient was continued on insulin pre-meals, Lantus and also Tradjenta. Blood sugar remains stable. The patient is continued on his home antihypertensives. He was also continued on statin for underlying dyslipidemia. The patient's condition improved. He is feeling back to baseline. He remained awake and oriented. The patient was evaluated by physical therapy. The patient required front wheel walker with ambulation. hospital food service worker was closely following up with the patient's social history. It is also noted that he also had family support system with his niece available, who also can take patient home upon discharge. Case management was called for arranging Home Health Physical Therapy and front wheel walker. This was arranged on 12/10/2016. At this time, there is no further inpatient workup indicated. The patient's vital signs remain stable. His labs remain unremarkable. The patient is feeling back to his usual health. He is ready for discharge at this moment. DISPOSITION: The patient will be discharged home with Home Health Physical Therapy and front wheel walker. DISCHARGE INSTRUCTIONS: He was instructed on cessation of alcohol. The patient was also given resources by our geriatric social worker. The patient verbalized discharge instructions. DISCHARGE CONDITION: Stable. DISCHARGE MEDICATIONS: 1. Tradjenta 5 mg by mouth daily. 2. Metformin 500 mg by mouth with breakfast and dinner. 3. Nifedipine 16 mg by mouth daily. 4. Lisinopril 10 mg by mouth daily. 5. Gabapentin 300 mg by mouth 3 times a day. 6. Atorvastatin 40 mg by mouth at bedtime. 7. Insulin Lantus 10 units subcutaneous at bedtime. 8. Thiamine 100 mg by mouth daily. 9. Ambien 10 mg by mouth at bedtime as needed insomnia. PERTINENT LABS/DIAGNOTIC DATA/VITAL SIGNS: Temperature 97.8, pulse rate 70, respiratory rate 20, blood pressure 124/56, and oxygen saturation 99 percent on room air. On 12/09/2016, CBC, WBC 7100, hemoglobin 11.3, hematocrit 34.7, and platelets 170. On 12/09/2016, BMP, sodium 135, potassium 4.0, BUN 13, creatinine 0.61, and glucose 135. At this time I would like to thank Dr. Page for seeing the patient and providing medical recommendation. Approximately 60 minutes was spent on coordinating the discharge on this patient. Discussed with Dr. Rodgers. Dictated By: Chely Willams NP /buddy/luisa /Document#: [id number] MADYSON
[2016-12-10 19:27] VITALS: BP 108/76; RESP 20
[2016-12-10 19:39] VITALS: BP 138/67; RESP 20
[2016-12-10] MEDS: ATORVASTATIN 40 MG TAB PO SCH (20:29)
[2016-12-10] MEDS: Insulin NOVOLOG SS MODERATE Algorithm (SS with meals and bedtime) SC SCH (20:34)
[2016-12-10] MEDS: INSULIN GLARGINE [LANtus] 3 ML PEN SC SCH (20:34)
[2016-12-10] MEDS ORDERED: INSULIN ASPART [NOVOLOG] 3 ML PEN SC SCH (21:00)
[2016-12-10] MEDS: ZOLPIDEM 5 MG TAB PO PRN (23:12)
[2016-12-11 01:30] VITALS: BP 135/74; RESP 20
[2016-12-11] MEDS: ACCU-CHEK XX SCH (02:00)
[2016-12-11] MEDS: morphine 2 MG INJ IV PRN ×4 (06:02→22:36)
[2016-12-11 07:37] VITALS: BP 135/74; RESP 18
[2016-12-11] MEDS: LINAGLIPTIN 5 MG TABLET PO SCH (08:02)
[2016-12-11] MEDS: FAMOTIDINE 20 MG TAB PO SCH ×2 (08:02→20:17)
[2016-12-11] MEDS: THIAMINE 100 MG TAB PO SCH (08:02)
[2016-12-11] MEDS: Insulin NOVOLOG SS MODERATE Algorithm (SS with meals and bedtime) SC SCH ×4 (08:02→20:24)
[2016-12-11] MEDS: GABAPENTIN 300 MG CAP PO SCH ×3 (08:02→20:17)
[2016-12-11] MEDS: AMLODIPINE 5 MG TAB PO SCH (08:03)
[2016-12-11] MEDS: LORAZEPAM 2 MG INJ IV PRN ×3 (08:23→22:07)
[2016-12-11] MEDS: traMADol 50 MG TAB PO PRN (11:21)
--- NOTE | 2016-12-11 13:26 | PN ---
Date/Time of Note Date/Time of Note DATE: 12/11/16 TIME: 13:23 Assessment/Plan VTE Prophylaxis VTE Prophylaxis Intervention: ambulation, SCD's Lines/Catheters IV Catheter Type (from Nrs): [facility] Urinary Cath still in place: No Assessment/Plan Chief Complaint/Hosp Course 1. EtOH intoxication/withdrawal. Resolved. -Continue oral B1 and ativan prn 2. Type 2 diabetes. With too tight glycemic control. -Continue insulin while in house. Will consider metformin +Tradjenta on dc as patient is noncompliant with premeal insulin. 3. HTN, stable -Continue antihypertensive 4. Dyslipidemia -On statin 6. History of hepatitis C 7.Possible noncompliance. -Counselled. Will review home meds and will titrate as indicated with pt's poor compliance 8. Self-care impairment. -Recommended extended care facility for further rehabilitation physical therapy. Plan: Patient needs ECF. Case management following. Case discussed with Dr. Webb Problems: Subjective 24 Hr Interval Summary Free Text/Dictation Discharge was canceled on 12/10/2016 as physical therapy recommended further rehabilitation prior to discharge. Today patient was reevaluated by physical therapy and recommended extended care facility for further rehabilitation. Exam/Review of Systems Vital Signs Vitals Vital Signs Date Time Temp Pulse Resp B/P Pulse Ox O2 Delivery O2 Flow Rate FiO2 12/11/16 07:37 98.7 67 18 135/74 98 Intake and Output 12/10/16 12/10/16 12/11/16 15:00 23:00 07:00 Intake Total 800 ml 840 ml 240 ml Output Total 600 ml 750 ml 2900 ml Balance 200 ml 90 ml -2660 ml Exam General: Well developed,adequately built, not in any acute distress . HEENT: Normocephalic, Atraumatic, No laceration or hematoma; Eyes: PEERL, Conjunctiva clear, Anicteric sclera Neck: Supple without any lymphadenopathy, nontender, no JVD, no carotid bruits, trachea midline, no thyromegaly Cardiac: S1, S2 auscultated, regular rhythm and rate, no mumurs or gallop Pulmonary: Normal respiratory effort. Chest clear to auscultation bilaterally, no adventitious breath sounds GI: Abdomen normal to inspection. Soft, non tender, non- distended, no masses, no rebound tenderness or guarding. Bowel sounds active on all four quadrants Genitourinary: Deferred Extremities: Weak. no cyanosis, clubbing, or edema. Pulses [2+] bilaterally. Range of motion intact. No focal weakness appreciated. Neurologic: Alert to person, place, time, and situation. Affect appropriate, intact sensation. Skin: Clean,dry, and intact. No ecchymosis, no rashes, or lesions Results Result Diagram: 12/09/16 0516 12/09/16 0515 Results 24 hrs Laboratory Tests Test 12/10/16 17:22 12/10/16 20:28 12/11/16 08:01 12/11/16 12:07 Bedside Glucose 142 124 110 176 Medications Medications Current Medications Ondansetron HCl (Zofran Inj) 4 mg Q6H PRN IV NAUSEA AND/OR VOMITING Last administered on 12/06/16 20:15; Admin Dose 4 MG; Start 12/05/16 at 04:30 Acetaminophen (Tylenol Tab) 650 mg Q6H PRN PO PAIN LEVEL 1-3 OR FEVER; Start at 04:30 Morphine Sulfate (morphine) 2 mg Q4H PRN IV SEVERE PAIN LEVEL 7-10 Last administered on 12/11/16 06:02; Admin Dose 2 MG; Start 12/05/16 at 04:30 Famotidine (Pepcid) 20 mg Q12 PO Last administered on 12/11/16 08:02; Admin Dose 20 MG; Start 12/05/16 at 09:00 Lorazepam (Ativan) 2 mg Q1H PRN IV withdrawal Last administered on 12/11/16 08: 23; Admin Dose 2 MG; Start 12/05/16 at 04:30 Amlodipine Besylate (Norvasc) 5 mg DAILY PO Last administered on 12/11/16 08:03 ; Admin Dose 5 MG; Start 12/05/16 at 09:00 Atorvastatin Calcium (Lipitor) 40 mg QHS PO Last administered on 12/10/16 20:29 ; Admin Dose 40 MG; Start 12/05/16 at 21:00 Gabapentin (Neurontin) 300 mg TID PO Last administered on 12/11/16 12:07; Admin Dose 300 MG; Start 12/05/16 at 09:00 Insulin Glargine (Lantus) 10 unit HS SC Last administered on 12/10/16 20:34; Admin Dose 10 UNIT; Start 12/05/16 at 21:00 Tramadol HCl (Ultram) 100 mg Q12H PRN PO PAIN Last administered on 12/11/16 11: 21; Admin Dose 100 MG; Start 12/05/16 at 04:30 Zolpidem Tartrate (Ambien) 10 mg QHS PRN PO INSOMNIA Last administered on 23:12; Admin Dose 10 MG; Start 12/05/16 at 04:30 Miscellaneous Information 1 ea NOTE XX ; Start 12/05/16 at 04:30 Glucose (Glutose) 15 gm Q15M PRN PO DECREASED GLUCOSE; Start 12/05/16 at 04:30 Glucose (Glutose) 22.5 gm Q15M PRN PO DECREASED GLUCOSE; Start 12/05/16 at 04:30 Dextrose (D50w Syringe) 25 ml Q15M PRN IV DECREASED GLUCOSE; Start 12/05/16 at 04:30 Dextrose (D50w Syringe) 50 ml Q15M PRN IV DECREASED GLUCOSE; Start 12/05/16 at 04:30 Glucagon (Glucagen) 1 mg Q15M PRN IM DECREASED GLUCOSE; Start 12/05/16 at 04:30 Glucose (Glutose) 15 gm Q15M PRN BUCCAL DECREASED GLUCOSE; Start 12/05/16 at 04: 30 Thiamine HCl (Vitamin B1) 100 mg DAILY PO Last administered on 12/11/16 08:02; Admin Dose 100 MG; Start 12/09/16 at 11:00 Linagliptin (Tradjenta) 5 mg DAILY PO Last administered on 12/11/16 08:02; Admin Dose 5 MG; Start 12/09/16 at 11:00 Diagnostic Test (Pha) (Accu-Chek) 1 ea 02 XX ; Start 12/10/16 at 02:00 Eye Lubricant (Artificial Tears Oph) 2 drop Q6H PRN BOTH EYES DRY EYES Last administered on 12/10/16 08:09; Admin Dose 2 DROP; Start 12/09/16 at 18:00 RODY MENDOZA NP Dec 11, 2016 13:26
[2016-12-11 13:39] VITALS: BP 145/70; RESP 18
[2016-12-11] MEDS: ARTIFICIAL TEARS 15 ML OPH BOTH EYES PRN (17:42)
[2016-12-11 19:26] VITALS: BP 141/79; RESP 20
[2016-12-11] MEDS: ATORVASTATIN 40 MG TAB PO SCH (20:17)
[2016-12-11] MEDS: ZOLPIDEM 5 MG TAB PO PRN (20:17)
[2016-12-11] MEDS: INSULIN GLARGINE [LANtus] 3 ML PEN SC SCH (20:24)
[2016-12-12] MEDS: ACCU-CHEK XX SCH (02:00)
[2016-12-12] MEDS: traMADol 50 MG TAB PO PRN ×2 (02:04→17:34)
[2016-12-12] MEDS: ARTIFICIAL TEARS 15 ML OPH BOTH EYES PRN ×2 (02:04→20:39)
[2016-12-12] MEDS: morphine 2 MG INJ IV PRN ×4 (02:45→20:39)
[2016-12-12 07:43] VITALS: BP 144/77; RESP 18
[2016-12-12] MEDS: Insulin NOVOLOG SS MODERATE Algorithm (SS with meals and bedtime) SC SCH ×4 (08:05→20:43)
[2016-12-12] MEDS: LINAGLIPTIN 5 MG TABLET PO SCH (08:22)
[2016-12-12] MEDS: AMLODIPINE 5 MG TAB PO SCH (08:22)
[2016-12-12] MEDS: FAMOTIDINE 20 MG TAB PO SCH ×2 (08:22→20:38)
[2016-12-12] MEDS: THIAMINE 100 MG TAB PO SCH (08:22)
[2016-12-12] MEDS: GABAPENTIN 300 MG CAP PO SCH ×3 (08:22→20:38)
--- NOTE | 2016-12-12 08:36 | PN ---
Date/Time of Note Date/Time of Note DATE: 12/12/16 TIME: 08:35 Assessment/Plan VTE Prophylaxis VTE Prophylaxis Intervention: ambulation, SCD's Lines/Catheters IV Catheter Type (from Nrs): [facility] Urinary Cath still in place: No Assessment/Plan Chief Complaint/Hosp Course 1. EtOH intoxication/withdrawal. Resolved. -on oral B1 and ativan prn 2. Type 2 diabetes. With too tight glycemic control. -Continue insulin while in house. Will consider metformin +Tradjenta on dc as patient is noncompliant with premeal insulin. 3. HTN, stable -Continue antihypertensive 4. Dyslipidemia -On statin 6. History of hepatitis C 7.Possible noncompliance. -Counselled. Will review home meds and will titrate as indicated with pt's poor compliance 8. Self-care impairment. -Recommended extended care facility for further rehabilitation physical therapy. Plan: Patient needs ECF/SNF. His case management following. Case discussed with Dr. Webb Problems: Subjective 24 Hr Interval Summary Free Text/Dictation No acute overnight episodes. Pending custodial facility placement. Exam/Review of Systems Vital Signs Vitals Vital Signs Date Time Temp Pulse Resp B/P Pulse Ox O2 Delivery O2 Flow Rate FiO2 12/12/16 07:43 97.7 73 18 144/77 99 Intake and Output 12/11/16 12/11/16 12/12/16 15:00 23:00 07:00 Intake Total 1160 ml 540 ml Output Total 750 ml 150 ml Balance 410 ml 390 ml Exam General: Well developed,adequately built, not in any acute distress . HEENT: Normocephalic, Atraumatic, No laceration or hematoma; Eyes: PEERL, Conjunctiva clear, Anicteric sclera Neck: Supple without any lymphadenopathy, nontender, no JVD, no carotid bruits, trachea midline, no thyromegaly Cardiac: S1, S2 auscultated, regular rhythm and rate, no mumurs or gallop Pulmonary: Normal respiratory effort. Chest clear to auscultation bilaterally, no adventitious breath sounds GI: Abdomen normal to inspection. Soft, non tender, non- distended, no masses, no rebound tenderness or guarding. Bowel sounds active on all four quadrants Genitourinary: Deferred Extremities: Weak. no cyanosis, clubbing, or edema. Pulses [2+] bilaterally. Range of motion intact. No focal weakness appreciated. Neurologic: Alert to person, place, time, and situation. Affect appropriate, intact sensation. Skin: Clean,dry, and intact. No ecchymosis, no rashes, or lesions Results Result Diagram: 12/09/16 0516 12/09/16 0515 Results 24 hrs Laboratory Tests Test 12/11/16 12:07 12/11/16 17:15 12/11/16 20:19 12/12/16 02:02 Bedside Glucose 176 157 183 143 Test 12/12/16 08:04 Bedside Glucose 102 Medications Medications Current Medications Ondansetron HCl (Zofran Inj) 4 mg Q6H PRN IV NAUSEA AND/OR VOMITING Last administered on 12/06/16 20:15; Admin Dose 4 MG; Start 12/05/16 at 04:30 Acetaminophen (Tylenol Tab) 650 mg Q6H PRN PO PAIN LEVEL 1-3 OR FEVER; Start at 04:30 Morphine Sulfate (morphine) 2 mg Q4H PRN IV SEVERE PAIN LEVEL 7-10 Last administered on 12/12/16 07:28; Admin Dose 2 MG; Start 12/05/16 at 04:30 Famotidine (Pepcid) 20 mg Q12 PO Last administered on 12/12/16 08:22; Admin Dose 20 MG; Start 12/05/16 at 09:00 Lorazepam (Ativan) 2 mg Q1H PRN IV withdrawal Last administered on 12/11/16 22: 07; Admin Dose 2 MG; Start 12/05/16 at 04:30 Amlodipine Besylate (Norvasc) 5 mg DAILY PO Last administered on 12/12/16 08:22 ; Admin Dose 5 MG; Start 12/05/16 at 09:00 Atorvastatin Calcium (Lipitor) 40 mg QHS PO Last administered on 12/11/16 20:17 ; Admin Dose 40 MG; Start 12/05/16 at 21:00 Gabapentin (Neurontin) 300 mg TID PO Last administered on 12/12/16 08:22; Admin Dose 300 MG; Start 12/05/16 at 09:00 Insulin Glargine (Lantus) 10 unit HS SC Last administered on 12/11/16 20:24; Admin Dose 10 UNIT; Start 12/05/16 at 21:00 Tramadol HCl (Ultram) 100 mg Q12H PRN PO PAIN Last administered on 12/12/16 02: 04; Admin Dose 100 MG; Start 12/05/16 at 04:30 Zolpidem Tartrate (Ambien) 10 mg QHS PRN PO INSOMNIA Last administered on 20:17; Admin Dose 10 MG; Start 12/05/16 at 04:30 Miscellaneous Information 1 ea NOTE XX ; Start 12/05/16 at 04:30 Glucose (Glutose) 15 gm Q15M PRN PO DECREASED GLUCOSE; Start 12/05/16 at 04:30 Glucose (Glutose) 22.5 gm Q15M PRN PO DECREASED GLUCOSE; Start 12/05/16 at 04:30 Dextrose (D50w Syringe) 25 ml Q15M PRN IV DECREASED GLUCOSE; Start 12/05/16 at 04:30 Dextrose (D50w Syringe) 50 ml Q15M PRN IV DECREASED GLUCOSE; Start 12/05/16 at 04:30 Glucagon (Glucagen) 1 mg Q15M PRN IM DECREASED GLUCOSE; Start 12/05/16 at 04:30 Glucose (Glutose) 15 gm Q15M PRN BUCCAL DECREASED GLUCOSE; Start 12/05/16 at 04: 30 Thiamine HCl (Vitamin B1) 100 mg DAILY PO Last administered on 12/12/16 08:22; Admin Dose 100 MG; Start 12/09/16 at 11:00 Linagliptin (Tradjenta) 5 mg DAILY PO Last administered on 12/12/16 08:22; Admin Dose 5 MG; Start 12/09/16 at 11:00 Diagnostic Test (Pha) (Accu-Chek) 1 ea 02 XX ; Start 12/10/16 at 02:00 Eye Lubricant (Artificial Tears Oph) 2 drop Q6H PRN BOTH EYES DRY EYES Last administered on 12/12/16 02:04; Admin Dose 2 DROP; Start 12/09/16 at 18:00 RODY MENDOZA NP Dec 12, 2016 08:36
[2016-12-12] MEDS: LORAZEPAM 2 MG INJ IV PRN ×2 (11:18→20:39)
[2016-12-12 14:00] VITALS: BP 136/66; RESP 18
[2016-12-12] MEDS: ATORVASTATIN 40 MG TAB PO SCH (20:38)
[2016-12-12] MEDS: ZOLPIDEM 5 MG TAB PO PRN (20:38)
[2016-12-12] MEDS: INSULIN GLARGINE [LANtus] 3 ML PEN SC SCH (20:45)
[2016-12-12 20:54] VITALS: BP 142/77; RESP 20
[2016-12-13] MEDS: morphine 2 MG INJ IV PRN ×4 (01:12→18:01)
[2016-12-13 02:00] VITALS: BP 134/79; RESP 16
[2016-12-13] MEDS: ACCU-CHEK XX SCH (02:00)
[2016-12-13] MEDS: traMADol 50 MG TAB PO PRN ×2 (05:21→20:20)
[2016-12-13] MEDS: ARTIFICIAL TEARS 15 ML OPH BOTH EYES PRN ×2 (05:22→20:24)
[2016-12-13 06:26] LABS: BASOPHIL # 0.1 10^3/ul (0.0-0.1); BASOPHILS % 1.3 % (0.0-2.0); EOSINOPHILS # 0.2 10^3/ul (0.0-0.5); EOSINOPHILS % 4.3 % (0.0-7.0); HEMATOCRIT 35.9 % (42.0-52.0); HEMOGLOBIN 11.3 g/dl (14.0-18.0); LYMPHOCYTES # 1.6 10^3/ul (0.8-2.9); LYMPHOCYTES % 29.3 % (15.0-51.0); MEAN CORPUSCULAR HEMOGLOBIN 31.8 pg (29.0-33.0); MEAN CORPUSCULAR HGB CONC 31.5 g/dl (32.0-37.0); MEAN CORPUSCULAR VOLUME 101.1 fl (82.0-101.0); MEAN PLATELET VOLUME 11.9 fl (7.4-10.4); MONOCYTE # 0.8 10^3/ul (0.3-0.9); MONOCYTES % 13.4 % (0.0-11.0); NEUTROPHILS % 51.3 % (39.0-77.0); PLATELET COUNT 219 10^3/UL (140-415); RED BLOOD COUNT 3.55 10^6/ul (4.70-6.10); RED CELL DISTRIBUTION WIDTH 12.4 % (11.5-14.5); WHITE BLOOD COUNT 5.6 10^3/ul (4.8-10.8)
[2016-12-13 07:02] LABS: CALCIUM 9.5 mg/dl (8.4-10.2); CREATININE 0.72 mg/dl (0.61-1.24); MAGNESIUM 1.2 mg/dl (1.7-2.5)
[2016-12-13 07:50] VITALS: BP 108/67; RESP 18
[2016-12-13] MEDS: Insulin NOVOLOG SS MODERATE Algorithm (SS with meals and bedtime) SC SCH ×4 (08:15→20:24)
--- NOTE | 2016-12-13 08:24 | PN ---
Date/Time of Note Date/Time of Note DATE: 12/13/16 TIME: 08:23 Assessment/Plan VTE Prophylaxis VTE Prophylaxis Intervention: ambulation, SCD's Lines/Catheters IV Catheter Type (from Nrs): [facility] Urinary Cath still in place: No Assessment/Plan Chief Complaint/Hosp Course 1. EtOH intoxication/withdrawal. Resolved. -on oral B1 and ativan prn 2. Type 2 diabetes. With too tight glycemic control. -Continue insulin while in house. Will consider metformin +Tradjenta on dc as patient is noncompliant with premeal insulin. 3. HTN, stable -Continue antihypertensive 4. Dyslipidemia -On statin 6. History of hepatitis C 7.Possible noncompliance. -Counselled. Will review home meds and will titrate as indicated with pt's poor compliance 8. Self-care impairment. -Recommended extended care facility for further rehabilitation physical therapy. 9. Hypomagnesemia. Replete and monitor. Plan: Patient needs ECF/SNF. case management following. Case discussed with Dr. Webb Problems: Cont'd Hospitalization Reason: needs placement Subjective 24 Hr Interval Summary Free Text/Dictation no acute overnight episodes.patient without any complaints. Exam/Review of Systems Vital Signs Vitals Vital Signs Date Time Temp Pulse Resp B/P Pulse Ox O2 Delivery O2 Flow Rate FiO2 12/13/16 07:50 98.4 53 18 108/67 98 Intake and Output 12/12/16 12/12/16 12/13/16 15:00 23:00 07:00 Intake Total 1660 ml 480 ml Output Total 1050 ml 600 ml Balance 610 ml -120 ml Exam General: Well developed,adequately built, not in any acute distress . HEENT: Normocephalic, Atraumatic, No laceration or hematoma; Eyes: PEERL, Conjunctiva clear, Anicteric sclera Neck: Supple without any lymphadenopathy, nontender, no JVD, no carotid bruits, trachea midline, no thyromegaly Cardiac: S1, S2 auscultated, regular rhythm and rate, no mumurs or gallop Pulmonary: Normal respiratory effort. Chest clear to auscultation bilaterally, no adventitious breath sounds GI: Abdomen normal to inspection. Soft, non tender, non- distended, no masses, no rebound tenderness or guarding. Bowel sounds active on all four quadrants Genitourinary: Deferred Extremities: Weak. no cyanosis, clubbing, or edema. Pulses [2+] bilaterally. Range of motion intact. No focal weakness appreciated. Neurologic: Alert to person, place, time, and situation. Affect appropriate, intact sensation. Skin: Clean,dry, and intact. No ecchymosis, no rashes, or lesions Results Result Diagram: 12/13/16 0551 12/13/16 0551 Results 24 hrs Laboratory Tests Test 12/12/16 11:57 12/12/16 17:30 12/12/16 20:41 12/13/16 01:14 Bedside Glucose 135 150 160 164 Test 12/13/16 05:51 12/13/16 08:04 White Blood Count 5.6 # Red Blood Count 3.55 L Hemoglobin 11.3 L Hematocrit 35.9 L Mean Corpuscular Volume 101.1 H Mean Corpuscular Hemoglobin 31.8 Mean Corpuscular Hemoglobin Concent 31.5 L Red Cell Distribution Width 12.4 Platelet Count 219 # Mean Platelet Volume 11.9 H Neutrophils % 51.3 Lymphocytes % 29.3 Monocytes % 13.4 H Eosinophils % 4.3 Basophils % 1.3 Nucleated Red Blood Cells % 0.0 Neutrophils # (Manual) 2.9 Lymphocytes # 1.6 Monocytes # 0.8 Eosinophils # 0.2 Basophils # 0.1 Nucleated Red Blood Cells # 0.0 Sodium Level 140 Potassium Level 4.0 Chloride Level 103 Carbon Dioxide Level 30 Anion Gap 11 Blood Urea Nitrogen 17 Creatinine 0.72 Glucose Level 133 Calcium Level 9.5 Magnesium Level 1.2 L Bedside Glucose 125 Medications Medications Current Medications Ondansetron HCl (Zofran Inj) 4 mg Q6H PRN IV NAUSEA AND/OR VOMITING Last administered on 12/06/16 20:15; Admin Dose 4 MG; Start 12/05/16 at 04:30 Acetaminophen (Tylenol Tab) 650 mg Q6H PRN PO PAIN LEVEL 1-3 OR FEVER; Start at 04:30 Morphine Sulfate (morphine) 2 mg Q4H PRN IV SEVERE PAIN LEVEL 7-10 Last administered on 12/13/16 05:21; Admin Dose 2 MG; Start 12/05/16 at 04:30 Famotidine (Pepcid) 20 mg Q12 PO Last administered on 12/12/16 20:38; Admin Dose 20 MG; Start 12/05/16 at 09:00 Lorazepam (Ativan) 2 mg Q1H PRN IV withdrawal Last administered on 12/12/16 20: 39; Admin Dose 2 MG; Start 12/05/16 at 04:30 Amlodipine Besylate (Norvasc) 5 mg DAILY PO Last administered on 12/12/16 08:22 ; Admin Dose 5 MG; Start 12/05/16 at 09:00 Atorvastatin Calcium (Lipitor) 40 mg QHS PO Last administered on 12/12/16 20:38 ; Admin Dose 40 MG; Start 12/05/16 at 21:00 Gabapentin (Neurontin) 300 mg TID PO Last administered on 12/12/16 20:38; Admin Dose 300 MG; Start 12/05/16 at 09:00 Insulin Glargine (Lantus) 10 unit HS SC Last administered on 12/12/16 20:45; Admin Dose 10 UNIT; Start 12/05/16 at 21:00 Tramadol HCl (Ultram) 100 mg Q12H PRN PO PAIN Last administered on 12/13/16 05: 21; Admin Dose 100 MG; Start 12/05/16 at 04:30 Zolpidem Tartrate (Ambien) 10 mg QHS PRN PO INSOMNIA Last administered on 20:38; Admin Dose 10 MG; Start 12/05/16 at 04:30 Miscellaneous Information 1 ea NOTE XX ; Start 12/05/16 at 04:30 Glucose (Glutose) 15 gm Q15M PRN PO DECREASED GLUCOSE; Start 12/05/16 at 04:30 Glucose (Glutose) 22.5 gm Q15M PRN PO DECREASED GLUCOSE; Start 12/05/16 at 04:30 Dextrose (D50w Syringe) 25 ml Q15M PRN IV DECREASED GLUCOSE; Start 12/05/16 at 04:30 Dextrose (D50w Syringe) 50 ml Q15M PRN IV DECREASED GLUCOSE; Start 12/05/16 at 04:30 Glucagon (Glucagen) 1 mg Q15M PRN IM DECREASED GLUCOSE; Start 12/05/16 at 04:30 Glucose (Glutose) 15 gm Q15M PRN BUCCAL DECREASED GLUCOSE; Start 12/05/16 at 04: 30 Thiamine HCl (Vitamin B1) 100 mg DAILY PO Last administered on 12/12/16 08:22; Admin Dose 100 MG; Start 12/09/16 at 11:00 Linagliptin (Tradjenta) 5 mg DAILY PO Last administered on 12/12/16 08:22; Admin Dose 5 MG; Start 12/09/16 at 11:00 Diagnostic Test (Pha) (Accu-Chek) 1 ea 02 XX ; Start 12/10/16 at 02:00 Eye Lubricant (Artificial Tears Oph) 2 drop Q6H PRN BOTH EYES DRY EYES Last administered on 12/13/16 05:22; Admin Dose 2 DROP; Start 12/09/16 at 18:00 RODY MENDOZA NP Dec 13, 2016 08:24
[2016-12-13] MEDS ORDERED: MAGNESIUM SULFATE 3 GM in SOD CHLORIDE 0.9% 100 ML IVPB ONE (09:30)
[2016-12-13] MEDS: GABAPENTIN 300 MG CAP PO SCH ×3 (09:33→20:20)
[2016-12-13] MEDS: FAMOTIDINE 20 MG TAB PO SCH ×2 (09:33→20:20)
[2016-12-13] MEDS: THIAMINE 100 MG TAB PO SCH (09:33)
[2016-12-13] MEDS: LORAZEPAM 2 MG INJ IV PRN ×2 (09:34→20:59)
[2016-12-13] MEDS: LINAGLIPTIN 5 MG TABLET PO SCH (09:34)
[2016-12-13] MEDS: AMLODIPINE 5 MG TAB PO SCH (09:35)
[2016-12-13 14:10] VITALS: BP 127/63; RESP 18
[2016-12-13 19:54] VITALS: BP 138/71; RESP 18
[2016-12-13] MEDS: ATORVASTATIN 40 MG TAB PO SCH (20:20)
[2016-12-13] MEDS: INSULIN GLARGINE [LANtus] 3 ML PEN SC SCH (20:27)
[2016-12-13] MEDS: ZOLPIDEM 5 MG TAB PO PRN (22:03)
[2016-12-14 02:00] VITALS: BP 145/62; RESP 18
[2016-12-14] MEDS: ACCU-CHEK XX SCH (02:00)
[2016-12-14 02:15] VITALS: BP 131/65; PULSE 72
[2016-12-14] MEDS: traMADol 50 MG TAB PO PRN ×2 (06:23→22:19)
[2016-12-14 06:31] LABS: CALCIUM 9.6 mg/dl (8.4-10.2); CREATININE 0.64 mg/dl (0.61-1.24); MAGNESIUM 1.4 mg/dl (1.7-2.5); POTASSIUM 3.8 mmol/L (3.5-5.1)
[2016-12-14 07:46] VITALS: BP 118/68; RESP 18
[2016-12-14] MEDS: Insulin NOVOLOG SS MODERATE Algorithm (SS with meals and bedtime) SC SCH ×4 (08:15→21:03)
[2016-12-14] MEDS: GABAPENTIN 300 MG CAP PO SCH ×3 (08:28→20:47)
[2016-12-14] MEDS: FAMOTIDINE 20 MG TAB PO SCH ×2 (08:28→20:47)
[2016-12-14] MEDS: LINAGLIPTIN 5 MG TABLET PO SCH (08:28)
[2016-12-14] MEDS: THIAMINE 100 MG TAB PO SCH (08:28)
[2016-12-14] MEDS: morphine 2 MG INJ IV PRN ×2 (08:29→15:58)
[2016-12-14] MEDS: AMLODIPINE 5 MG TAB PO SCH (08:29)
[2016-12-14] MEDS: LORAZEPAM 2 MG INJ IV PRN ×2 (08:35→17:24)
--- NOTE | 2016-12-14 08:47 | PN ---
Date/Time of Note Date/Time of Note DATE: 12/14/16 TIME: 08:45 Assessment/Plan VTE Prophylaxis VTE Prophylaxis Intervention: ambulation, SCD's Lines/Catheters IV Catheter Type (from Nrs): Saline Lock Urinary Cath still in place: No Assessment/Plan Chief Complaint/Hosp Course 1. EtOH intoxication/withdrawal. Resolved. -on oral B1 and ativan prn 2. Type 2 diabetes. With too tight glycemic control. -Continue insulin while in house. Will consider metformin +Tradjenta on dc as patient is noncompliant with premeal insulin. 3. HTN, stable -Continue antihypertensive 4. Dyslipidemia -On statin 6. History of hepatitis C 7.Noncompliance. -Counselled. Will review home meds and will titrate as indicated with pt's poor compliance upon discharge. 8. Self-care impairment. -Recommended extended care facility for further rehabilitation physical therapy. 9. Hypomagnesemia. Improved but still not desired. will replete and monitor. 10.Mild macrocytic anemia. Stable HH -Obtain BV12 and folate level. Plan: Patient needs ECF/SNF. case management following. Case discussed with Dr. Webb Problems: Subjective 24 Hr Interval Summary Free Text/Dictation No acute overnight episodes. Having normal bowel movements. Exam/Review of Systems Vital Signs Vitals Vital Signs Date Time Temp Pulse Resp B/P Pulse Ox O2 Delivery O2 Flow Rate FiO2 12/14/16 07:46 98.1 71 18 118/68 98 Intake and Output 12/13/16 12/13/16 12/14/16 15:00 23:00 07:00 Intake Total 106 ml 1540 ml 800 ml Output Total 900 ml 900 ml Balance 106 ml 640 ml -100 ml Exam General: Well developed,adequately built, not in any acute distress . HEENT: Normocephalic, Atraumatic, No laceration or hematoma; Eyes: PEERL, Conjunctiva clear, Anicteric sclera Neck: Supple without any lymphadenopathy, nontender, no JVD, no carotid bruits, trachea midline, no thyromegaly Cardiac: S1, S2 auscultated, regular rhythm and rate, no mumurs or gallop Pulmonary: Normal respiratory effort. Chest clear to auscultation bilaterally, no adventitious breath sounds GI: Abdomen normal to inspection. Soft, non tender, non- distended, no masses, no rebound tenderness or guarding. Bowel sounds active on all four quadrants Genitourinary: Deferred Extremities: Weak. no cyanosis, clubbing, or edema. Pulses [2+] bilaterally. Range of motion intact. No focal weakness appreciated. Neurologic: Alert to person, place, time, and situation. Affect appropriate, intact sensation. Skin: Clean,dry, and intact. No ecchymosis, no rashes, or lesions Results Result Diagram: 12/13/16 0551 12/14/16 0516 Results 24 hrs Laboratory Tests Test 12/13/16 12:34 12/13/16 17:56 12/13/16 20:24 12/14/16 05:16 Bedside Glucose 151 91 155 Sodium Level 139 Potassium Level 3.8 Chloride Level 103 Carbon Dioxide Level 29 Anion Gap 11 Blood Urea Nitrogen 19 Creatinine 0.64 Glucose Level 183 Calcium Level 9.6 Magnesium Level 1.4 L Test 12/14/16 08:27 Bedside Glucose 126 Medications Medications Current Medications Ondansetron HCl (Zofran Inj) 4 mg Q6H PRN IV NAUSEA AND/OR VOMITING Last administered on 12/06/16 20:15; Admin Dose 4 MG; Start 12/05/16 at 04:30 Acetaminophen (Tylenol Tab) 650 mg Q6H PRN PO PAIN LEVEL 1-3 OR FEVER; Start at 04:30 Morphine Sulfate (morphine) 2 mg Q4H PRN IV SEVERE PAIN LEVEL 7-10 Last administered on 12/14/16 08:29; Admin Dose 2 MG; Start 12/05/16 at 04:30 Famotidine (Pepcid) 20 mg Q12 PO Last administered on 12/14/16 08:28; Admin Dose 20 MG; Start 12/05/16 at 09:00 Lorazepam (Ativan) 2 mg Q1H PRN IV withdrawal Last administered on 12/14/16 08 :35; Admin Dose 2 MG; Start 12/05/16 at 04:30 Amlodipine Besylate (Norvasc) 5 mg DAILY PO Last administered on 12/14/16 08: 29; Admin Dose 5 MG; Start 12/05/16 at 09:00 Atorvastatin Calcium (Lipitor) 40 mg QHS PO Last administered on 12/13/16 20:20 ; Admin Dose 40 MG; Start 12/05/16 at 21:00 Gabapentin (Neurontin) 300 mg TID PO Last administered on 12/14/16 08:28; Admin Dose 300 MG; Start 12/05/16 at 09:00 Insulin Glargine (Lantus) 10 unit HS SC Last administered on 12/13/16 20:27; Admin Dose 10 UNIT; Start 12/05/16 at 21:00 Tramadol HCl (Ultram) 100 mg Q12H PRN PO PAIN Last administered on 12/14/16 06 :23; Admin Dose 100 MG; Start 12/05/16 at 04:30 Zolpidem Tartrate (Ambien) 10 mg QHS PRN PO INSOMNIA Last administered on 22:03; Admin Dose 10 MG; Start 12/05/16 at 04:30 Miscellaneous Information 1 ea NOTE XX ; Start 12/05/16 at 04:30 Glucose (Glutose) 15 gm Q15M PRN PO DECREASED GLUCOSE; Start 12/05/16 at 04:30 Glucose (Glutose) 22.5 gm Q15M PRN PO DECREASED GLUCOSE; Start 12/05/16 at 04:30 Dextrose (D50w Syringe) 25 ml Q15M PRN IV DECREASED GLUCOSE; Start 12/05/16 at 04:30 Dextrose (D50w Syringe) 50 ml Q15M PRN IV DECREASED GLUCOSE; Start 12/05/16 at 04:30 Glucagon (Glucagen) 1 mg Q15M PRN IM DECREASED GLUCOSE; Start 12/05/16 at 04:30 Glucose (Glutose) 15 gm Q15M PRN BUCCAL DECREASED GLUCOSE; Start 12/05/16 at 04: 30 Thiamine HCl (Vitamin B1) 100 mg DAILY PO Last administered on 12/14/16 08:28 ; Admin Dose 100 MG; Start 12/09/16 at 11:00 Linagliptin (Tradjenta) 5 mg DAILY PO Last administered on 12/14/16 08:28; Admin Dose 5 MG; Start 12/09/16 at 11:00 Diagnostic Test (Pha) (Accu-Chek) 1 ea 02 XX ; Start 12/10/16 at 02:00 Eye Lubricant (Artificial Tears Oph) 2 drop Q6H PRN BOTH EYES DRY EYES Last administered on 12/13/16 20:24; Admin Dose 2 DROP; Start 12/09/16 at 18:00 RODY MENDOZA NP Dec 14, 2016 08:47
[2016-12-14] MEDS ORDERED: MAGNESIUM SULFATE 3 GM in SOD CHLORIDE 0.9% 100 ML IVPB ONE (10:00)
[2016-12-14 14:57] VITALS: BP 121/67; RESP 19
[2016-12-14 20:00] VITALS: BP 124/68; RESP 20
[2016-12-14] MEDS: ZOLPIDEM 5 MG TAB PO PRN (20:47)
[2016-12-14] MEDS: ATORVASTATIN 40 MG TAB PO SCH (20:47)
[2016-12-14] MEDS: INSULIN GLARGINE [LANtus] 3 ML PEN SC SCH (21:02)
[2016-12-15] MEDS: morphine 2 MG INJ IV PRN ×5 (00:52→20:44)
[2016-12-15] MEDS: ACCU-CHEK XX SCH (01:57)
[2016-12-15 02:00] VITALS: BP 125/63; RESP 20
[2016-12-15] MEDS: LORAZEPAM 2 MG INJ IV PRN ×5 (03:38→21:40)
[2016-12-15 06:03] LABS: CALCIUM 9.9 mg/dl (8.4-10.2); CREATININE 0.66 mg/dl (0.61-1.24); MAGNESIUM 1.5 mg/dl (1.7-2.5); POTASSIUM 3.8 mmol/L (3.5-5.1)
[2016-12-15 07:31] VITALS: BP 118/68; RESP 20
[2016-12-15] MEDS: Insulin NOVOLOG SS MODERATE Algorithm (SS with meals and bedtime) SC SCH ×4 (07:44→21:00)
[2016-12-15 07:48] LABS: FOLATE 19.4 ng/ml (2.8-20.0)
[2016-12-15] MEDS: LINAGLIPTIN 5 MG TABLET PO SCH (08:38)
[2016-12-15] MEDS: GABAPENTIN 300 MG CAP PO SCH ×3 (08:38→20:45)
[2016-12-15] MEDS: THIAMINE 100 MG TAB PO SCH (08:38)
[2016-12-15] MEDS: AMLODIPINE 5 MG TAB PO SCH (08:38)
[2016-12-15] MEDS: FAMOTIDINE 20 MG TAB PO SCH ×2 (08:38→20:45)
[2016-12-15] MEDS: traMADol 50 MG TAB PO PRN (11:10)
--- NOTE | 2016-12-15 11:38 | PN ---
Date/Time of Note Date/Time of Note DATE: 12/15/16 TIME: 11:37 Assessment/Plan VTE Prophylaxis VTE Prophylaxis Intervention: ambulation, SCD's Lines/Catheters IV Catheter Type (from Nrs): Saline Lock Urinary Cath still in place: No Assessment/Plan Chief Complaint/Hosp Course 1. EtOH intoxication/withdrawal. Resolved. -on oral B1 and ativan prn 2. Type 2 diabetes. With too tight glycemic control. -Continue insulin while in house. Will consider metformin +Tradjenta on dc as patient is noncompliant with premeal insulin. 3. HTN, stable -Continue antihypertensive 4. Dyslipidemia -On statin 6. History of hepatitis C 7.Noncompliance. -Counselled. Will review home meds and will titrate as indicated with pt's poor compliance upon discharge. 8. Self-care impairment. -Recommended extended care facility for further rehabilitation physical therapy. 9. Hypomagnesemia. Will replete and monitor. 10.Mild macrocytic anemia, likely chronic. B12 and folate level stable. Stable HH Plan: Patient needs ECF/SNF. case management following. Case discussed with Dr. Leahy. Problems: Subjective 24 Hr Interval Summary Free Text/Dictation Patient with no acute overnight episodes. Pending placement. Exam/Review of Systems Vital Signs Vitals Vital Signs Date Time Temp Pulse Resp B/P Pulse Ox O2 Delivery O2 Flow Rate FiO2 12/15/16 07:31 98.8 66 20 118/68 100 Intake and Output 12/14/16 12/14/16 12/15/16 14:59 22:59 06:59 Intake Total 706 ml 240 ml Output Total 500 ml 1200 ml Balance 206 ml -960 ml Exam General: Well developed,adequately built, not in any acute distress . HEENT: Normocephalic, Atraumatic, No laceration or hematoma; Eyes: PEERL, Conjunctiva clear, Anicteric sclera Neck: Supple without any lymphadenopathy, nontender, no JVD, no carotid bruits, trachea midline, no thyromegaly Cardiac: S1, S2 auscultated, regular rhythm and rate, no mumurs or gallop Pulmonary: Normal respiratory effort. Chest clear to auscultation bilaterally, no adventitious breath sounds GI: Abdomen normal to inspection. Soft, non tender, non- distended, no masses, no rebound tenderness or guarding. Bowel sounds active on all four quadrants Genitourinary: Deferred Extremities: Weak. no cyanosis, clubbing, or edema. Pulses [2+] bilaterally. Range of motion intact. No focal weakness appreciated. Neurologic: Alert to person, place, time, and situation. Affect appropriate, intact sensation. Skin: Clean,dry, and intact. No ecchymosis, no rashes, or lesions Results Result Diagram: 12/13/16 0551 12/15/16 0504 Results 24 hrs Laboratory Tests Test 12/14/16 11:58 12/14/16 17:28 12/14/16 20:50 12/15/16 01:56 Bedside Glucose 216 98 193 109 Test 12/15/16 05:04 12/15/16 07:34 Sodium Level 142 Potassium Level 3.8 Chloride Level 105 Carbon Dioxide Level 29 Anion Gap 12 Blood Urea Nitrogen 16 Creatinine 0.66 Glucose Level 117 # Calcium Level 9.9 Magnesium Level 1.5 L Vitamin B12 Level 566 Folate 19.4 Bedside Glucose 184 Medications Medications Current Medications Ondansetron HCl (Zofran Inj) 4 mg Q6H PRN IV NAUSEA AND/OR VOMITING Last administered on 12/06/16 20:15; Admin Dose 4 MG; Start 12/05/16 at 04:30 Acetaminophen (Tylenol Tab) 650 mg Q6H PRN PO PAIN LEVEL 1-3 OR FEVER; Start at 04:30 Morphine Sulfate (morphine) 2 mg Q4H PRN IV SEVERE PAIN LEVEL 7-10 Last administered on 12/15/16 08:42; Admin Dose 2 MG; Start 12/05/16 at 04:30 Famotidine (Pepcid) 20 mg Q12 PO Last administered on 12/15/16 08:38; Admin Dose 20 MG; Start 12/05/16 at 09:00 Amlodipine Besylate (Norvasc) 5 mg DAILY PO Last administered on 12/15/16 08: 38; Admin Dose 5 MG; Start 12/05/16 at 09:00 Atorvastatin Calcium (Lipitor) 40 mg QHS PO Last administered on 12/14/16 20: 47; Admin Dose 40 MG; Start 12/05/16 at 21:00 Gabapentin (Neurontin) 300 mg TID PO Last administered on 12/15/16 08:38; Admin Dose 300 MG; Start 12/05/16 at 09:00 Insulin Glargine (Lantus) 10 unit HS SC Last administered on 12/14/16 21:02; Admin Dose 10 UNIT; Start 12/05/16 at 21:00 Tramadol HCl (Ultram) 100 mg Q12H PRN PO PAIN Last administered on 12/15/16 11 :10; Admin Dose 100 MG; Start 12/05/16 at 04:30 Zolpidem Tartrate (Ambien) 10 mg QHS PRN PO INSOMNIA Last administered on 20:47; Admin Dose 10 MG; Start 12/05/16 at 04:30 Miscellaneous Information 1 ea NOTE XX ; Start 12/05/16 at 04:30 Glucose (Glutose) 15 gm Q15M PRN PO DECREASED GLUCOSE; Start 12/05/16 at 04:30 Glucose (Glutose) 22.5 gm Q15M PRN PO DECREASED GLUCOSE; Start 12/05/16 at 04:30 Dextrose (D50w Syringe) 25 ml Q15M PRN IV DECREASED GLUCOSE; Start 12/05/16 at 04:30 Dextrose (D50w Syringe) 50 ml Q15M PRN IV DECREASED GLUCOSE; Start 12/05/16 at 04:30 Glucagon (Glucagen) 1 mg Q15M PRN IM DECREASED GLUCOSE; Start 12/05/16 at 04:30 Glucose (Glutose) 15 gm Q15M PRN BUCCAL DECREASED GLUCOSE; Start 12/05/16 at 04: 30 Thiamine HCl (Vitamin B1) 100 mg DAILY PO Last administered on 12/15/16 08:38 ; Admin Dose 100 MG; Start 12/09/16 at 11:00 Linagliptin (Tradjenta) 5 mg DAILY PO Last administered on 12/15/16 08:38; Admin Dose 5 MG; Start 12/09/16 at 11:00 Diagnostic Test (Pha) (Accu-Chek) 1 ea 02 XX Last administered on 12/15/16 01: 57; Admin Dose 1 EA; Start 12/10/16 at 02:00 Eye Lubricant (Artificial Tears Oph) 2 drop Q6H PRN BOTH EYES DRY EYES Last administered on 12/13/16 20:24; Admin Dose 2 DROP; Start 12/09/16 at 18:00 Lorazepam (Ativan) 1 mg Q4 PRN IV ANXIETY Last administered on 12/15/16t 08:42 ; Admin Dose 1 MG; Start 12/15/16 at 03:30 RODY MENDOZA NP Dec 15, 2016 11:38
[2016-12-15] MEDS ORDERED: MAGNESIUM SULFATE 3 GM in SOD CHLORIDE 0.9% 100 ML IVPB SCH (13:00)
[2016-12-15 14:29] VITALS: BP 113/60; RESP 20
[2016-12-15 19:45] VITALS: BP 118/58; RESP 20
[2016-12-15] MEDS: ATORVASTATIN 40 MG TAB PO SCH (20:45)
[2016-12-15] MEDS: SENNA TAB PO SCH (20:45)
[2016-12-15] MEDS: DOCUSATE SODIUM 100 MG CAP PO SCH (20:45)
[2016-12-15] MEDS: INSULIN GLARGINE [LANtus] 3 ML PEN SC SCH (21:00)
[2016-12-15] MEDS: ZOLPIDEM 5 MG TAB PO PRN (21:02)
[2016-12-16 02:00] VITALS: BP 132/70; RESP 20
[2016-12-16] MEDS: ACCU-CHEK XX SCH (02:00)
[2016-12-16] MEDS: morphine 2 MG INJ IV PRN ×5 (02:16→23:10)
[2016-12-16 06:08] LABS: CALCIUM 9.7 mg/dl (8.4-10.2); CREATININE 0.71 mg/dl (0.61-1.24); MAGNESIUM 1.3 mg/dl (1.7-2.5)
[2016-12-16 07:25] VITALS: BP 114/63; RESP 20
[2016-12-16] MEDS: Insulin NOVOLOG SS MODERATE Algorithm (SS with meals and bedtime) SC SCH ×4 (08:00→20:47)
[2016-12-16] MEDS: LINAGLIPTIN 5 MG TABLET PO SCH (08:01)
[2016-12-16] MEDS: DOCUSATE SODIUM 100 MG CAP PO SCH ×2 (08:01→20:45)
[2016-12-16] MEDS: GABAPENTIN 300 MG CAP PO SCH ×3 (08:01→20:45)
[2016-12-16] MEDS: SENNA TAB PO SCH ×2 (08:01→20:45)
[2016-12-16] MEDS: FAMOTIDINE 20 MG TAB PO SCH ×2 (08:01→20:45)
[2016-12-16] MEDS: AMLODIPINE 5 MG TAB PO SCH (08:02)
[2016-12-16] MEDS: THIAMINE 100 MG TAB PO SCH (08:02)
[2016-12-16] MEDS: LORAZEPAM 2 MG INJ IV PRN ×2 (09:03→19:49)
[2016-12-16] MEDS: ARTIFICIAL TEARS 15 ML OPH BOTH EYES PRN (09:03)
--- NOTE | 2016-12-16 10:54 | PN ---
Date/Time of Note Date/Time of Note DATE: 12/16/16 TIME: 10:53 Assessment/Plan VTE Prophylaxis VTE Prophylaxis Intervention: ambulation, SCD's Lines/Catheters IV Catheter Type (from Nrs): Saline Lock Urinary Cath still in place: No Assessment/Plan Chief Complaint/Hosp Course 1. EtOH intoxication/withdrawal. Resolved. -on oral B1 and ativan prn 2. Type 2 diabetes. With too tight glycemic control. -Continue insulin while in house. Will consider metformin +Tradjenta on dc as patient is noncompliant with premeal insulin. 3. HTN, stable -Continue antihypertensive 4. Dyslipidemia -On statin 6. History of hepatitis C 7.Noncompliance. -Counselled. Will review home meds and will titrate as indicated with pt's poor compliance upon discharge. 8. Self-care impairment. -Recommended extended care facility for further rehabilitation physical therapy. 9. Hypomagnesemia. Will replete and monitor. 10.Mild macrocytic anemia, likely chronic. B12 and folate level stable. Stable HH Plan: Patient needs ECF/SNF. case management following. Case discussed with Dr. Leahy. Problems: Subjective 24 Hr Interval Summary Free Text/Dictation No acute episodes.. Pending placement. Exam/Review of Systems Vital Signs Vitals Vital Signs Date Time Temp Pulse Resp B/P Pulse Ox O2 Delivery O2 Flow Rate FiO2 12/16/16 07:25 98.5 65 20 114/63 98 Intake and Output 12/15/16 12/15/16 12/16/16 15:00 23:00 07:00 Intake Total 1726 ml 120 ml Output Total 1475 ml 420 ml Balance 251 ml -300 ml Exam General: Well developed,adequately built, not in any acute distress . HEENT: Normocephalic, Atraumatic, No laceration or hematoma; Eyes: PEERL, Conjunctiva clear, Anicteric sclera Neck: Supple without any lymphadenopathy, nontender, no JVD, no carotid bruits, trachea midline, no thyromegaly Cardiac: S1, S2 auscultated, regular rhythm and rate, no mumurs or gallop Pulmonary: Normal respiratory effort. Chest clear to auscultation bilaterally, no adventitious breath sounds GI: Abdomen normal to inspection. Soft, non tender, non- distended, no masses, no rebound tenderness or guarding. Bowel sounds active on all four quadrants Genitourinary: Deferred Extremities: Weak. no cyanosis, clubbing, or edema. Pulses [2+] bilaterally. Range of motion intact. No focal weakness appreciated. Neurologic: Alert to person, place, time, and situation. Affect appropriate, intact sensation. Skin: Clean,dry, and intact. No ecchymosis, no rashes, or lesions Results Result Diagram: 12/13/16 0551 12/16/16 0533 Results 24 hrs Laboratory Tests Test 12/15/16 11:52 12/15/16 16:51 12/15/16 20:57 12/16/16 05:33 Bedside Glucose 183 145 162 Sodium Level 142 Potassium Level 4.0 Chloride Level 106 Carbon Dioxide Level 29 Anion Gap 11 Blood Urea Nitrogen 20 Creatinine 0.71 Glucose Level 134 Calcium Level 9.7 Magnesium Level 1.3 L Test 12/16/16 07:59 Bedside Glucose 104 Medications Medications Current Medications Ondansetron HCl (Zofran Inj) 4 mg Q6H PRN IV NAUSEA AND/OR VOMITING Last administered on 12/06/16 20:15; Admin Dose 4 MG; Start 12/05/16 at 04:30 Acetaminophen (Tylenol Tab) 650 mg Q6H PRN PO PAIN LEVEL 1-3 OR FEVER; Start at 04:30 Morphine Sulfate (morphine) 2 mg Q4H PRN IV SEVERE PAIN LEVEL 7-10 Last administered on 12/16/16 08:01; Admin Dose 2 MG; Start 12/05/16 at 04:30 Famotidine (Pepcid) 20 mg Q12 PO Last administered on 12/16/16 08:01; Admin Dose 20 MG; Start 12/05/16 at 09:00 Amlodipine Besylate (Norvasc) 5 mg DAILY PO Last administered on 12/16/16 08: 02; Admin Dose 5 MG; Start 12/05/16 at 09:00 Atorvastatin Calcium (Lipitor) 40 mg QHS PO Last administered on 12/15/16 20: 45; Admin Dose 40 MG; Start 12/05/16 at 21:00 Gabapentin (Neurontin) 300 mg TID PO Last administered on 12/16/16 08:01; Admin Dose 300 MG; Start 12/05/16 at 09:00 Insulin Glargine (Lantus) 10 unit HS SC Last administered on 12/15/16 21:00; Admin Dose 10 UNIT; Start 12/05/16 at 21:00 Tramadol HCl (Ultram) 100 mg Q12H PRN PO PAIN Last administered on 12/15/16 11 :10; Admin Dose 100 MG; Start 12/05/16 at 04:30 Zolpidem Tartrate (Ambien) 10 mg QHS PRN PO INSOMNIA Last administered on 21:02; Admin Dose 10 MG; Start 12/05/16 at 04:30 Miscellaneous Information 1 ea NOTE XX ; Start 12/05/16 at 04:30 Glucose (Glutose) 15 gm Q15M PRN PO DECREASED GLUCOSE; Start 12/05/16 at 04:30 Glucose (Glutose) 22.5 gm Q15M PRN PO DECREASED GLUCOSE; Start 12/05/16 at 04:30 Dextrose (D50w Syringe) 25 ml Q15M PRN IV DECREASED GLUCOSE; Start 12/05/16 at 04:30 Dextrose (D50w Syringe) 50 ml Q15M PRN IV DECREASED GLUCOSE; Start 12/05/16 at 04:30 Glucagon (Glucagen) 1 mg Q15M PRN IM DECREASED GLUCOSE; Start 12/05/16 at 04:30 Glucose (Glutose) 15 gm Q15M PRN BUCCAL DECREASED GLUCOSE; Start 12/05/16 at 04: 30 Thiamine HCl (Vitamin B1) 100 mg DAILY PO Last administered on 12/16/16 08:02 ; Admin Dose 100 MG; Start 12/09/16 at 11:00 Linagliptin (Tradjenta) 5 mg DAILY PO Last administered on 12/16/16 08:01; Admin Dose 5 MG; Start 12/09/16 at 11:00 Diagnostic Test (Pha) (Accu-Chek) 1 ea 02 XX Last administered on 12/15/16 01: 57; Admin Dose 1 EA; Start 12/10/16 at 02:00 Eye Lubricant (Artificial Tears Oph) 2 drop Q6H PRN BOTH EYES DRY EYES Last administered on 12/16/16 09:03; Admin Dose 2 DROP; Start 12/09/16 at 18:00 Lorazepam (Ativan) 1 mg Q4 PRN IV ANXIETY Last administered on 12/16/16 09:03 ; Admin Dose 1 MG; Start 12/15/16 at 03:30 Docusate Sodium (Colace) 100 mg BID PO Last administered on 12/16/16 08:01; Admin Dose 100 MG; Start 12/15/16 at 21:00 Senna (Senokot) 1 tab BID PO Last administered on 12/16/16 08:01; Admin Dose 1 TAB; Start 12/15/16 at 21:00 RODY MENDOZA NP Dec 16, 2016 10:54
[2016-12-16] MEDS ORDERED: MAGNESIUM SULFATE 4 GM/100 ML 100 ML IVPB SCH (12:30)
[2016-12-16 13:12] VITALS: BP 115/68; RESP 18
[2016-12-16 19:37] VITALS: BP 149/70; RESP 20
[2016-12-16] MEDS: ATORVASTATIN 40 MG TAB PO SCH (20:45)
[2016-12-16] MEDS: INSULIN GLARGINE [LANtus] 3 ML PEN SC SCH (20:50)
[2016-12-16] MEDS: ZOLPIDEM 5 MG TAB PO PRN (21:49)
[2016-12-17 02:00] VITALS: BP 124/70; RESP 20
[2016-12-17] MEDS: ACCU-CHEK XX SCH (02:00)
[2016-12-17] MEDS: morphine 2 MG INJ IV PRN ×3 (03:30→12:14)
[2016-12-17] MEDS: LORAZEPAM 2 MG INJ IV PRN ×3 (04:19→15:48)
[2016-12-17 07:40] VITALS: BP 130/71; RESP 16
[2016-12-17] MEDS: Insulin NOVOLOG SS MODERATE Algorithm (SS with meals and bedtime) SC SCH ×2 (08:12→12:42)
[2016-12-17] MEDS: DOCUSATE SODIUM 100 MG CAP PO SCH (09:22)
[2016-12-17] MEDS: FAMOTIDINE 20 MG TAB PO SCH (09:23)
[2016-12-17] MEDS: THIAMINE 100 MG TAB PO SCH (09:23)
[2016-12-17] MEDS: GABAPENTIN 300 MG CAP PO SCH ×2 (09:23→13:58)
[2016-12-17] MEDS: LINAGLIPTIN 5 MG TABLET PO SCH (09:24)
[2016-12-17] MEDS: SENNA TAB PO SCH (09:24)
[2016-12-17] MEDS: AMLODIPINE 5 MG TAB PO SCH (09:25)
--- NOTE | 2016-12-17 09:28 | PN ---
Date/Time of Note Date/Time of Note DATE: 12/17/16 TIME: 09:27 Assessment/Plan VTE Prophylaxis VTE Prophylaxis Intervention: ambulation, SCD's Lines/Catheters IV Catheter Type (from Nrs): Peripheral IV Urinary Cath still in place: No Assessment/Plan Chief Complaint/Hosp Course 1. EtOH intoxication/withdrawal. Resolved. -on oral B1 and ativan prn 2. Type 2 diabetes. Good glycemic control. -Continue insulin while in house. Will consider metformin +Tradjenta on dc as patient is noncompliant with premeal insulin. 3. HTN, stable -Continue antihypertensive 4. Dyslipidemia -On statin 6. History of hepatitis C 7.Noncompliance. -Counselled. Will review home meds and will titrate as indicated with pt's poor compliance upon discharge. 8. Self-care impairment. -Recommended extended care facility for further rehabilitation physical therapy. 9. Hypomagnesemia.Stable. 10.Mild macrocytic anemia, likely chronic. B12 and folate level stable. Stable HH Plan: Patient needs ECF/SNF. case management following. Case discussed with Dr. Leahy. Problems: Cont'd Hospitalization Reason: needs placement Subjective 24 Hr Interval Summary Free Text/Dictation No acute overnight episodes. Exam/Review of Systems Vital Signs Vitals Vital Signs Date Time Temp Pulse Resp B/P Pulse Ox O2 Delivery O2 Flow Rate FiO2 12/17/16 07:40 97.7 60 16 130/71 97 Intake and Output 12/16/16 12/16/16 12/17/16 15:00 23:00 07:00 Intake Total 1360 ml 480 ml Output Total 1150 ml 1600 ml Balance 210 ml -1120 ml Exam General: Well developed,adequately built, not in any acute distress . HEENT: Normocephalic, Atraumatic, No laceration or hematoma; Eyes: PEERL, Conjunctiva clear, Anicteric sclera Neck: Supple without any lymphadenopathy, nontender, no JVD, no carotid bruits, trachea midline, no thyromegaly Cardiac: S1, S2 auscultated, regular rhythm and rate, no mumurs or gallop Pulmonary: Normal respiratory effort. Chest clear to auscultation bilaterally, no adventitious breath sounds GI: Abdomen normal to inspection. Soft, non tender, non- distended, no masses, no rebound tenderness or guarding. Bowel sounds active on all four quadrants Genitourinary: Deferred Extremities: Weak. no cyanosis, clubbing, or edema. Pulses [2+] bilaterally. Range of motion intact. No focal weakness appreciated. Neurologic: Alert to person, place, time, and situation. Affect appropriate, intact sensation. Skin: Clean,dry, and intact. No ecchymosis, no rashes, or lesions Results Result Diagram: 12/13/16 0551 12/16/16 0533 Results 24 hrs Laboratory Tests Test 12/16/16 12:05 12/16/16 17:16 12/16/16 20:47 12/17/16 07:52 Bedside Glucose 108 127 159 Magnesium Level 1.7 Test 12/17/16 08:11 Bedside Glucose 98 Medications Medications Current Medications Ondansetron HCl (Zofran Inj) 4 mg Q6H PRN IV NAUSEA AND/OR VOMITING Last administered on 12/06/16 20:15; Admin Dose 4 MG; Start 12/05/16 at 04:30 Acetaminophen (Tylenol Tab) 650 mg Q6H PRN PO PAIN LEVEL 1-3 OR FEVER; Start at 04:30 Morphine Sulfate (morphine) 2 mg Q4H PRN IV SEVERE PAIN LEVEL 7-10 Last administered on 12/17/16 08:05; Admin Dose 2 MG; Start 12/05/16 at 04:30 Famotidine (Pepcid) 20 mg Q12 PO Last administered on 12/16/16 20:45; Admin Dose 20 MG; Start 12/05/16 at 09:00 Amlodipine Besylate (Norvasc) 5 mg DAILY PO Last administered on 12/16/16 08: 02; Admin Dose 5 MG; Start 12/05/16 at 09:00 Atorvastatin Calcium (Lipitor) 40 mg QHS PO Last administered on 12/16/16 20: 45; Admin Dose 40 MG; Start 12/05/16 at 21:00 Gabapentin (Neurontin) 300 mg TID PO Last administered on 12/16/16 20:45; Admin Dose 300 MG; Start 12/05/16 at 09:00 Insulin Glargine (Lantus) 10 unit HS SC Last administered on 12/16/16 20:50; Admin Dose 10 UNIT; Start 12/05/16 at 21:00 Tramadol HCl (Ultram) 100 mg Q12H PRN PO PAIN Last administered on 12/15/16 11 :10; Admin Dose 100 MG; Start 12/05/16 at 04:30 Zolpidem Tartrate (Ambien) 10 mg QHS PRN PO INSOMNIA Last administered on 21:49; Admin Dose 10 MG; Start 12/05/16 at 04:30 Miscellaneous Information 1 ea NOTE XX ; Start 12/05/16 at 04:30 Glucose (Glutose) 15 gm Q15M PRN PO DECREASED GLUCOSE; Start 12/05/16 at 04:30 Glucose (Glutose) 22.5 gm Q15M PRN PO DECREASED GLUCOSE; Start 12/05/16 at 04:30 Dextrose (D50w Syringe) 25 ml Q15M PRN IV DECREASED GLUCOSE; Start 12/05/16 at 04:30 Dextrose (D50w Syringe) 50 ml Q15M PRN IV DECREASED GLUCOSE; Start 12/05/16 at 04:30 Glucagon (Glucagen) 1 mg Q15M PRN IM DECREASED GLUCOSE; Start 12/05/16 at 04:30 Glucose (Glutose) 15 gm Q15M PRN BUCCAL DECREASED GLUCOSE; Start 12/05/16 at 04: 30 Thiamine HCl (Vitamin B1) 100 mg DAILY PO Last administered on 12/16/16 08:02 ; Admin Dose 100 MG; Start 12/09/16 at 11:00 Linagliptin (Tradjenta) 5 mg DAILY PO Last administered on 12/16/16 08:01; Admin Dose 5 MG; Start 12/09/16 at 11:00 Diagnostic Test (Pha) (Accu-Chek) 1 ea 02 XX Last administered on 12/15/16 01: 57; Admin Dose 1 EA; Start 12/10/16 at 02:00 Eye Lubricant (Artificial Tears Oph) 2 drop Q6H PRN BOTH EYES DRY EYES Last administered on 12/16/16 09:03; Admin Dose 2 DROP; Start 12/09/16 at 18:00 Lorazepam (Ativan) 1 mg Q4 PRN IV ANXIETY Last administered on 12/17/16 04:19 ; Admin Dose 1 MG; Start 12/15/16 at 03:30 Docusate Sodium (Colace) 100 mg BID PO Last administered on 9/12/17at 20:45; Admin Dose 100 MG; Start 12/15/16 at 21:00 Senna (Senokot) 1 tab BID PO Last administered on 12/16/16t 20:45; Admin Dose 1 TAB; Start 12/15/16 at 21:00 RODY MENDOZA NP Dec 17, 2016 09:28
[2016-12-17] MEDS ORDERED: MAGNESIUM SULFATE 1 GM/D5W 100 ML IVPB ONE (11:00)
[2016-12-17 14:00] VITALS: BP 128/69; RESP 16
--- NOTE | 2016-12-17 15:13 | DS ---
Date/Time of Note Date/Time of Note DATE: 12/17/16 TIME: 15:10 Discharge Summary Admission/Discharge Info Admit Date/Time Dec 05, 2016 at 03:39 Discharge Date/Time Discharge Diagnosis 1. Alcohol (ETOH) intoxication/withdrawal, resolved. 2. Type 2 diabetes. 3. Hypertension. 4. Dyslipidemia. 5. History of hepatitis C. 6. Possible noncompliance. Patient Condition: Stable Consults Dr. Page, Surgery. Hx of Present Illness Hospital Course This is a 61-year-old gentleman with the past medical history of binge drinking, type 2 diabetes, hypertension, hepatitis C, possible noncompliance, dyslipidemia, who was brought to the emergency room with the complaints of headache, neck pain, and abdominal pain. The patient has been drinking heavily, mainly vodka and he also fell recently. In the emergency room the patient was altered, as he was intoxicated with alcohol. CT head was negative for any acute findings. There was no fractures identified. Initial workup showed a soft tissue lesion in the right iliac likely resolving hematoma. Initial labs with slightly elevated sodium of 146. Otherwise unremarkable. The patient was admitted for further evaluation. The patient was started on IV banana bag, and as needed Ativan. He was evaluated by elementary school social worker. The patient was given alcohol cessation education. The patient was also evaluated by Surgery for possible concern of ileus and according to his recommendation, his abdominal exam was entirely benign. The patient also is having regular bowel movements. There is no further followup needed in regards to the imaging findings. The patient was also started on a diet which he was able to tolerate. The patient was continued on insulin pre-meals, Lantus and also Tradjenta. Blood sugar remains stable. The patient is continued on his home antihypertensives. He was also continued on statin for underlying dyslipidemia. The patient's condition improved. He is feeling back to baseline. He remained awake and oriented. The patient was evaluated by physical therapy. The patient required front wheel walker with ambulation. cardroom worker was closely following up with the patient's social history. It is also noted that he also had family support system with his niece available, who also can take patient home upon discharge. Case management was called for arranging Home Health Physical Therapy and front wheel walker. This was arranged on 12/10/2016. At this time, there is no further inpatient workup indicated. The patient's vital signs remain stable. His labs remain unremarkable. The patient is feeling back to his usual health. He is ready for discharge at this moment. DISPOSITION: The patient will be discharged home with Home Health Physical Therapy and front wheel walker. Patient was seen in collaboration with Dr. Leahy [facility] Active Scripts Metformin* (Glucophage*) 500 Mg Tab, 500 MG PO WITH BREAKFAST DINNE, #60 TAB Prov:MENDOZA,RODY V. MAC DEVELOPER 12/10/16 Linagliptin (TRADJENTA) 5 Mg Tablet, 5 MG PO DAILY, #30 TAB Prov:MENDOZA,RODY V. MAC DEVELOPER 12/10/16 Reported Medications Atorvastatin* (Atorvastatin*) 40 Mg Tablet, 40 MG PO QHS, #30 TAB 12/05/16 Zolpidem Tartrate* (Zolpidem Tartrate*) 10 Mg Tablet, 10 MG PO QHS Y for INSOMNIA, #30 TAB 12/05/16 Thiamine* (Vitamin B-1*) 100 Mg Tablet, 100 MG PO DAILY, TAB 12/05/16 Amlodipine Besylate* (Norvasc*) 5 Mg Tablet, 5 MG PO DAILY, TAB 12/05/16 Gabapentin* (Neurontin*) 300 Mg Capsule, 300 MG PO TID, CAP 06/11/14 Insulin Glargine* (Lantus*) 100 Unit/Ml Soln, 10 UNIT SC HS, EA 06/11/14 Discontinued Reported Medications Tramadol Hcl* (Ultram*) 50 Mg Tablet, 100 MG PO Q12H Y for PAIN, TAB TK 2 TS PO Q 12H PRN 12/05/16 Propranolol Hcl* (Propranolol Hcl*) 10 Mg Tablet, 10 MG PO DAILY, TAB 12/05/16 Insulin Aspart (Novolog) 100 Unit/1 Ml Cartridge, 5 UNIT SQ WITH MEALS 12/05/16 Hydromorphone Hcl* (Dilaudid*) 2 Mg Tablet, 2 MG PO Q8 Y for PAIN, TAB 06/11/14 Follow-up Plan HOME CARE INSTRUCTIONS: Special Diet: 1800 maryam diet FOLLOW UP/APPOINTMENTS Follow-up Plan 1.Follow up with primary care physician in 1 week If you don't have one please let someone know, we can give you resources that may help you pick one. You may also call your insurance company to assign one to you. Review your medication list with your nurse before leaving and if you need new prescriptions please let your nurse know. I may have made changes to your home medications or given you new prescriptions, please let your primary doctor know as well. Stay compliant with your medications and report any side effects to your PCP or pharmacist. Return to the ER if you have any concerns and cannot reach your doctors or call your insurance company, they usually have a nurse that can help you. 2. Call 911 or go to the nearest emergency room if experiencing loss of consciousness, dizziness, chest pain, shortness of breath, vomiting/abdominal pain, speech difficulties, motor weakness or any unusual symptoms. Primary Care Provider Not On Staff Doctor Pending Labs Laboratory Tests Test 12/16/16 17:16 12/16/16 20:47 12/17/16 07:52 12/17/16 08:11 Bedside Glucose 127mg/dL (70-220) 159mg/dL (70-220) 98mg/dL (70-220) Magnesium Level 1.7mg/dl (1.7-2.5) Test 12/17/16 12:19 Bedside Glucose 180mg/dL (70-220) RODY MENDOZA NP Dec 17, 2016 15:13
== END 2016-12-17 17:45 | disposition home health service (06) | DRG 897 ==
LOC: E/R 21:47 → MS2 12-05 03:39
PROVIDERS: ADMIT Internal Medicine; ATTEND Internal Medicine
DX: F10.239 Alcohol dependence with withdrawal, unspecified (principal); E87.0 Hyperosmolality and hypernatremia; E11.69 Type 2 diabetes mellitus with other specified complication; D53.9 Nutritional anemia, unspecified; I10 Essential (primary) hypertension; S30.1XXA Contusion of abdominal wall, initial encounter; F10.229 Alcohol dependence with intoxication, unspecified; Y90.8 Blood alcohol level of 240 mg/100 ml or more; E78.5 Hyperlipidemia, unspecified; K70.30 Alcoholic cirrhosis of liver without ascites; B18.2 Chronic viral hepatitis C; K02.9 Dental caries, unspecified; Z72.0 Tobacco use; E83.42 Hypomagnesemia; Z86.73 Personal history of transient ischemic attack (TIA), and cerebral infarction without residual deficits; Z79.4 Long term (current) use of insulin; W19.XXXA Unspecified fall, initial encounter
CPT/HCPCS: 70450; 71010; 72125; 73562; 74176; 80048; 80053; 80306; 81003; 82607; 82746; 82962; 83036; 83690; 83735; 84100; 85025; 85610; 85730; 86592; 86803; 87340; 96365; 96366; 96375; 97110; 97116; 97162; 97530; J1815; J2060; J2270; J2405; J3411; J3475; J7030

== ENCOUNTER 2018-07-09 14:59 | Inpatient (IN) | payer OTHER ==
[~2018-07-09] VITALS: Ht 170.2 cm; Wt 73.9 kg
[~2018-07-09 14:59] MED LIST changes: -ALBU2.5V36 NEB; +AMLO5TAB4 PO; +ATOR40TA68 PO; -HYD25 PO; -HYDR2TAB36 PO; +LINA5TAB PO; +METF-849 PO; -NOV SC; +THIA100T56 PO; +ZOLP10TA5 PO
[2018-07-09] MEDS ORDERED: ASPIRIN 81 MG TAB PO STA (15:06)
[2018-07-09] MEDS ORDERED: NITROGLYCERIN 2% 1 GM OINT PKT TD STA (15:06)
[2018-07-09] MEDS ORDERED: NITROGLYCERIN (SL) 0.4 MG TAB SL PRN ×2 (15:30→17:30)
[2018-07-09] MEDS ORDERED: ZOLP5TAB PO (16:14)
[2018-07-09] MEDS ORDERED: AMLO5TAB4 PO (16:15)
[2018-07-09] MEDS ORDERED: BENA10TA4 PO (16:16)
[2018-07-09] MEDS ORDERED: BUPR1PAT20 TD (16:17)
[2018-07-09] MEDS ORDERED: BUPR1PAT TD (16:20)
[2018-07-09] MEDS ORDERED: GABA300C16 PO (16:21)
[2018-07-09] MEDS ORDERED: FOLI-49 PO (16:21)
[2018-07-09] MEDS ORDERED: INSU100V3 IJ (16:25)
[2018-07-09] MEDS ORDERED: MAGN400O19 PO (16:26)
[2018-07-09] MEDS ORDERED: IPRA3AMP29 INHALATION (16:26)
[2018-07-09] MEDS ORDERED: MULT-105 PO (16:27)
[2018-07-09] MEDS ORDERED: UDMYL PO (16:28)
[2018-07-09] MEDS ORDERED: HYDR-3980 PO ×2 (16:30→16:31)
[2018-07-09] MEDS ORDERED: DESO1TAB68 PO (16:32)
[2018-07-09] MEDS ORDERED: THIA100T56 PO (16:33)
[2018-07-09] MEDS ORDERED: GUAI-173 PO (16:34)
[2018-07-09] MEDS ORDERED: TRAM50TA PO (16:34)
[2018-07-09] MEDS ORDERED: ACET325T33 PO (16:35)
[2018-07-09] MEDS ORDERED: NACL 0.9% 3 ML SYG IV SCH (17:30)
[2018-07-09] MEDS ORDERED: ACETAMINOPHEN 325 MG TAB PO PRN ×2 (17:30)
[2018-07-09] MEDS ORDERED: DOCUSATE SODIUM 100 MG CAP PO PRN (17:30)
[2018-07-09] MEDS ORDERED: ONDANSETRON 4 MG INJ IV PRN ×2 (17:30)
[2018-07-09] MEDS: HYDROCODONE/APAP (5/325) TAB PO PRN ×3 (17:59→20:21)
--- NOTE | 2018-07-09 18:22 | ERD ---
ER Documentation Chief Complaint Chief Complaint Pt BIB [facility] from [facility] with c/o intermittent CP X 3 days worst today. HPI Patient is a 63-year-old male with hypertension and diabetes who presents with chest pain. The patient's chest pain is left-sided and has been worsening. It started 2 days ago. The patient has leg cramps as well. The patient was brought in by ambulance. He says the chest pain comes and goes. He has had no treatment as of yet. His primary doctor is Dr. Robledo. ROS All systems reviewed and are negative except as per history of present illness. Medications Home Meds Reported Medications Acetaminophen* (Tylenol*) 325 Mg Tablet, 650 MG PO Q6H PRN for MILD PAIN LEVEL 1-3, TAB 07/09/18 Guaifenesin* (Tussin*) 100 Mg/5 Ml Syrup, 10 ML PO Q6 PRN for COUGH, ML 07/09/18 Tramadol Hcl* (Ultram*) 50 Mg Tablet, 50 MG PO Q8H PRN for PAIN, TAB 07/09/18 Thiamine* (Vitamin B-1*) 100 Mg Tablet, 100 MG PO DAILY, TAB 07/09/18 Desogestrel-Ethinyl Estradiol (Desogest-Eth Estra 0.15-0.03MG) 1 Each Tablet, 1 EACH PO DAILY, TAB 07/09/18 Hydrocodone/Acetaminophen ([place] 10-325 Tablet) 1 Each Tablet, 1 EACH PO Q4H PRN for PAIN 4-6/10, TAB 07/09/18 Hydrocodone/Acetaminophen ([place] 10-325 Tablet) 1 Each Tablet, 1 EACH PO Q6H PRN for PAIN 7-10/10, TAB 07/09/18 Magaldrate/Simethicone* (Mag-Al Plus Suspension*) 30 Ml Oral.susp, 30 ML PO Q12H, ML 07/09/18 Multivitamin with Minerals (Multivitamins with Minerals) 1 Each Tablet, 1 EACH PO DAILY, TAB 07/09/18 Magnesium Hydroxide* (Milk Of Magnesia*) 400 Mg/5 Ml Oral.susp, 30 ML PO NEEDED for CONSTIPATION, ML 07/09/18 Ipratropium-Albuterol (Ipratropium-Albuterol) 0.5-3 Mg/3 Ml Ampul.neb, 3 ML INHALATION Q6, #30 VIAL 07/09/18 Insulin Regular, Human (Humulin R) 100 Unit/1 Ml Vial, 0 IJ SLIDING SCALE, VIAL IF BS 71-150=0 UNIT,151-200=2 UNITS,201-250=4 UNITS,251-300=6 UNITS,301-350=8 UNITS,351-400=10 UNITS IF BS>400 GIVE12 UNITS THEN CALL MD. 07/09/18 Gabapentin* (Gabapentin*) 300 Mg Capsule, 300 MG PO TID, #90 CAP 07/09/18 Folic Acid* (Folic Acid*) 1 Mg Tablet, 1 MG PO DAILY, TAB 07/09/18 Buprenorphine (BUTRANS) 1 Each Patch.tdwk, 1 EACH TD Q SAT 5MCG/HR,END DATE 07/10/18 07/09/18 Buprenorphine (Buprenorphine) 1 Each Patch.tdwk, 1 EACH TD Q SAT 10MCG/HR,FOR 7 WEEKS START 07/10/18 END DATE 08/28/18 07/09/18 Benazepril Hcl* (Benazepril Hcl*) 10 Mg Tablet, 10 MG PO DAILY, #30 TAB HOLD IF SBP<110 OR HR<60 07/09/18 Amlodipine Besylate* (Norvasc*) 5 Mg Tablet, 5 MG PO DAILY, TAB HOLD IF SBP<110 OR HR<60 07/09/18 Zolpidem Tartrate* (Ambien*) 5 Mg Tablet, 5 MG PO QHS PRN for INSOMNIA, #30 TAB for 14 days,end date 07/16/18 07/09/18 Discontinued Reported Medications Atorvastatin* (Atorvastatin*) 40 Mg Tablet, 40 MG PO QHS, #30 TAB 12/05/16 Zolpidem Tartrate* (Zolpidem Tartrate*) 10 Mg Tablet, 10 MG PO QHS PRN for INSOMNIA, #30 TAB 12/05/16 Thiamine* (Vitamin B-1*) 100 Mg Tablet, 100 MG PO DAILY, TAB 12/05/16 Amlodipine Besylate* (Norvasc*) 5 Mg Tablet, 5 MG PO DAILY, TAB 12/05/16 Gabapentin* (Neurontin*) 300 Mg Capsule, 300 MG PO TID, CAP 06/11/14 Insulin Glargine* (Lantus*) 100 Unit/Ml Soln, 10 UNIT SC HS, EA 06/11/14 Discontinued Scripts Metformin* (Glucophage*) 500 Mg Tab, 500 MG PO WITH BREAKFAST DINNE, #60 TAB Prov:MENDOZA,RODY V. SERVICES HOST 12/10/16 Linagliptin (TRADJENTA) 5 Mg Tablet, 5 MG PO DAILY, #30 TAB Prov:MENDOZA,RODY V. SERVICES HOST 12/10/16 Allergies Allergies: Coded Allergies: No Known Allergy (Unverified , 07/09/18) PMhx/Soc History of Surgery: Yes (Right hip surgery, Neck surgery Ronen placed spinal) Anesthesia Reaction: No Hx Neurological Disorder: Yes (hx of seizures) Hx Respiratory Disorders: No Hx Cardiac Disorders: Yes (heart flutter, HTN) Hx Psychiatric Problems: Yes (depression) Hx Miscellaneous Medical Probl: Yes (See EMR for detail. ) Hx Alcohol Use: Yes Hx Substance Use: No (denies) Hx Tobacco Use: Yes Smoking Status: Current every day smoker FmHx Family History: coronary disease Physical Exam Vitals Vital Signs Date Temp Pulse Resp B/P (MAP) Pulse Ox O2 O2 Flow FiO2 Time Delivery Rate 07/09/18 89 14 123/84 100 Room Air 17:51 (97) 07/09/18 98.2 77 12 155/78 100 15:10 (103) Physical Exam Const: No acute distress Head: Atraumatic Eyes: Normal Conjunctiva ENT: Normal External Ears, Nose and Mouth. Neck: Full range of motion. No meningismus. Resp: Clear to auscultation bilaterally Cardio: Regular rate and rhythm, no murmurs Abd: Soft, non tender, non distended. Normal bowel sounds Skin: No petechiae or rashes Back: No midline or flank tenderness Ext: No cyanosis, or edema Neur: Awake and alert Psych: Normal Mood and Affect Result Diagram: 07/09/18 1530 07/09/18 1530 Results 24 hrs Laboratory Tests Test 07/09/18 15:30 White Blood Count 6.4 10^3/ul Red Blood Count 4.44 10^6/ul Hemoglobin 13.2 g/dl Hematocrit 41.5 % Mean Corpuscular Volume 93.5 fl Mean Corpuscular Hemoglobin 29.7 pg Mean Corpuscular Hemoglobin Concent 31.8 g/dl Red Cell Distribution Width 13.8 % Platelet Count 277 10^3/UL Mean Platelet Volume 10.6 fl Immature Granulocytes % 0.200 % Neutrophils % 57.8 % Lymphocytes % 28.2 % Monocytes % 10.8 % Eosinophils % 2.4 % Basophils % 0.6 % Nucleated Red Blood Cells % 0.0 /100WBC Immature Granulocytes # 0.010 10^3/ul Neutrophils # 3.7 10^3/ul Lymphocytes # 1.8 10^3/ul Monocytes # 0.7 10^3/ul Eosinophils # 0.2 10^3/ul Basophils # 0.0 10^3/ul Nucleated Red Blood Cells # 0.0 10^3/ul Sodium Level 138 mmol/L Potassium Level 4.4 mmol/L Chloride Level 98 mmol/L Carbon Dioxide Level 33 mmol/L Anion Gap 7 Blood Urea Nitrogen 12 mg/dl Creatinine 0.59 mg/dl Est Glomerular Filtrat Rate mL/min > 60 mL/min Glucose Level 200 mg/dl Hemoglobin A1c 7.2 % Calcium Level 10.1 mg/dl Troponin I < 0.012 ng/ml Current Medications Medications Dose Sig/Dom Start Time Status Last (Trade) Ordered Route PRN Stop Time Admin Dose Reason Admin Aspirin 162 mg ONCE STAT 07/09/18 DC 07/09/18 (Aspirin) PO 15:06 07/09/18 15:44 15:07 1 inch ONCE STAT 07/09/18 DC 07/09/18 Nitroglycerin TD 15:06 07/09/18 15:44 15:07 (Nitroglyceri n 2% Oint) 1 tab Q5M UP TO 3 07/09/18 Nitroglycerin DOSES PRN 15:30 SL .CHEST (Nitroglyceri PAIN n (Sl Tab) 0.4 Mg) Ondansetron 4 mg ER BRIDGE 07/09/18 DC HCl (Zofran PRN IV 17:30 07/09/18 Inj) NAUSEA/VOMITI 17:47 NG 650 mg ER BRIDGE 07/09/18 DC Acetaminophen PRN PO 17:30 07/09/18 (Tylenol .MILD PAIN 17:47 Tab) 1-3 OR TEMP Amlodipine 5 mg DAILY PO 07/10/18 Besylate 09:00 (Norvasc) Benazepril 10 mg DAILY PO 07/10/18 HCl 09:00 (Lotensin) Folic Acid 1 mg DAILY PO 07/10/18 (Folic Acid) 09:00 Gabapentin 300 mg TID PO 07/09/18 (Neurontin) 21:00 Thiamine 100 mg DAILY PO 07/10/18 HCl 09:00 (Vitamin B1) Tramadol 50 mg Q8H PRN 07/09/18 HCl PO PAIN 17:30 (Ultram) Zolpidem 5 mg QHS PRN 07/09/18 Tartrate PO INSOMNIA 17:30 (Ambien) IV Flush 3 ml PER 07/09/18 (NS 3 ml) PROTOCOL IV 17:30 Ondansetron 4 mg Q6H PRN 07/09/18 HCl (Zofran IV 17:30 Inj) NAUSEA/VOMITI NG 1 tab Q5M PRN 07/09/18 Nitroglycerin SL .CHEST 17:30 PAIN (Nitroglyceri n (Sl Tab) 0.4 Mg) 650 mg Q6H PRN 07/09/18 Acetaminophen PO .PAIN 1-3 17:30 (Tylenol OR TEMP Tab) 1 tab Q6H PRN 07/09/18 Acetaminophen PO .PAIN 4-6 17:30 / Hydrocodone Bitart ([place] (5/325)) 2 tab Q6H PRN 07/09/18 07/09/18 Acetaminophen PO .PAIN 17:30 17:59 / 7-10 Hydrocodone Bitart ([place] (5/325)) Morphine 2 mg Q4H PRN 07/09/18 Sulfate IV .PAIN 17:30 (morphine) 7-10 Docusate 100 mg Q12H PRN 07/09/18 Sodium PO 17:30 (Colace) .CONSTIPATION Magnesium 30 ml DAILY PRN 07/09/18 Hydroxide PO 17:30 (Milk Of Mag) .CONSTIPATION 40 mg DAILY@06 07/10/18 Pantoprazole PO 06:00 (Protonix Tab) Enoxaparin 40 mg DAILY SC 07/10/18 Sodium 09:00 (Lovenox) Procedures/MDM EKG read by me: Rate/Rhythm: Regular rate and rhythm at a normal rate Intervals: Normal Impression: No evidence of ischemia or arrhythmia Chest x-ray read by radiology. Smoking Cessation Therapy: Pt. was lectured for greater than 3 minutes on the health risks of continued smoking and the benefits of cessation. Patient is a 63-year-old male with multiple cardiac risk factors who presents with chest pain. Initial troponin is negative. EKG shows no signs of ischemia. Chest x-ray shows no pneumonia or pneumothorax. At this point I am concerned about acute coronary syndrome. I doubt pneumonia, pneumothorax, pulmonary embolism, or aortic dissection. The patient will be admitted to a telemetry observation bed to the care of Dr. Spencer. The patient was given aspirin and nitroglycerin empirically. Departure Diagnosis: Primary Impression: Chest pain Chest pain type: unspecified Qualified Codes: R07.9 - Chest pain, unspecified Condition: PRASHANT Aguiar MD Jul 09, 2018 18:22
--- NOTE | 2018-07-09 18:40 | HP ---
Date/Time of Note Date/Time of Note DATE: 07/09/18 TIME: 18:30 Assessment/Plan VTE Prophylaxis SCD applied (from Nsg): Yes Pharmacological prophylaxis: LMWH Lines/Catheters IV Catheter Type (from Nrsg): Saline Lock Assessment/Plan Assessment/Plan 1. Acute chest pain, rule out ACS - Most likely GI related given epigastric and reproducible - troponin negative x1 and will continue to trend - EKG negative for acute ST changes - ECHO ordered 2. GI discomfort - will order simethicone and PPI for relief - monitor for worsening in sx 3. Constipation - bowel regime on board 4. recent right knee surgery - pain control - PT/OT 5. DM - A1c noted - Will continue ISS and accuchecks 6. HTN - continue home medications and adjust as needed 7. Diet - Carb controlled/ Cardiac 8. Disposition - Admit to Telemetry for chest pain rule out. Anticipate 1-2 day stay and will be discharged back to SNF when stable. Result Diagram: 07/09/18 1530 07/09/18 1530 Results 24hrs Laboratory Tests Test 07/09/18 15:30 White Blood Count 6.4 Red Blood Count 4.44 #L Hemoglobin 13.2 L Hematocrit 41.5 L Mean Corpuscular Volume 93.5 Mean Corpuscular Hemoglobin 29.7 Mean Corpuscular Hemoglobin Concent 31.8 L Red Cell Distribution Width 13.8 Platelet Count 277 # Mean Platelet Volume 10.6 H Immature Granulocytes % 0.200 Neutrophils % 57.8 Lymphocytes % 28.2 Monocytes % 10.8 Eosinophils % 2.4 Basophils % 0.6 Nucleated Red Blood Cells % 0.0 Immature Granulocytes # 0.010 Neutrophils # 3.7 Lymphocytes # 1.8 Monocytes # 0.7 Eosinophils # 0.2 Basophils # 0.0 Nucleated Red Blood Cells # 0.0 Sodium Level 138 Potassium Level 4.4 Chloride Level 98 Carbon Dioxide Level 33 H Anion Gap 7 Blood Urea Nitrogen 12 Creatinine 0.59 L Est Glomerular Filtrat Rate mL/min > 60 Glucose Level 200 Hemoglobin A1c 7.2 H Calcium Level 10.1 Troponin I < 0.012 HPI/ROS Admit Date/Time Admit Date/Time 07/09/18 Hx of Present Illness 63 yo M with PMH DM II, HTN, and Hep C presented from SNF for worsening chest discomfort for the past 2 days. Patient states he has been experiencing c onstipation and took medication to help move his bowels. He states he was trying to push and started experiencing right upper quadrant discomfort that radiated to epigastric area and then to left upper quadrant. Patient denies any associated palpitations, nausea, vomiting, dizziness, shortness of breath, LOC, or urinary issues. He does admit the pain is reproducible but has improved since getting pain medications in the ED. Patient has since had a BM. Patient is currently complaining of pain in right knee and admits to surgical intervention at [facility] recently, which is the reason he currently resides at a SNF. Unclear exactly what procedure was performed but does admit t o severe pain in right knee. ROS All 12 systems reviewed and pertinent positives as per HPI. All others negative. Constitutional: No chills, No fatigue, No nausea Eyes: No discharge ENT: No congestion Respiratory: No cough, No shortness of breath, No sputum, No wheezing Cardiovascular: chest pain; No edema, No lightheadedness, No orthopenea, No palpitations Gastrointestinal: constipation; No pain, No diarrhea, No nausea, No vomiting Genitourinary: No bleeding, No discharge, No flank pain Musculoskeletal: bone/joint pain (right knee pain); No back pain Skin: No bruising, No laceration, No rash Neurologic: No confusion, No focal-weakness, No syncope Endocrine: no complaints Lymphatic: no complaints Psychological: nl mood/affect Immunologic: no complaints PMH/Family/Social Past Medical History Medical History: diabetes, high cholesterol, hypertension Medications Current Medications Nitroglycerin (Nitroglycerin (Sl Tab) 0.4 Mg) 1 tab Q5M UP TO 3 DOSES PRN SL .CHEST PAIN; Start 07/09/18 at 15:30 Amlodipine Besylate (Norvasc) 5 mg DAILY PO ; Start 07/10/18 at 09:00 Benazepril HCl (Lotensin) 10 mg DAILY PO ; Start 07/10/18 at 09:00 Folic Acid (Folic Acid) 1 mg DAILY PO ; Start 07/10/18 at 09:00 Gabapentin (Neurontin) 300 mg TID PO ; Start 07/09/18 at 21:00 Thiamine HCl (Vitamin B1) 100 mg DAILY PO ; Start 07/10/18 at 09:00 Tramadol HCl (Ultram) 50 mg Q8H PRN PO PAIN; Start 07/09/18 at 17:30 Zolpidem Tartrate (Ambien) 5 mg QHS PRN PO INSOMNIA; Start 07/09/18 at 17:30 IV Flush (NS 3 ml) 3 ml PER PROTOCOL IV ; Start 07/09/18 at 17:30 Ondansetron HCl (Zofran Inj) 4 mg Q6H PRN IV NAUSEA/VOMITING; Start 07/09/18 at 17:30 Nitroglycerin (Nitroglycerin (Sl Tab) 0.4 Mg) 1 tab Q5M PRN SL .CHEST PAIN; Start 07/09/18 at 17:30 Acetaminophen (Tylenol Tab) 650 mg Q6H PRN PO .PAIN 1-3 OR TEMP; Start 07/09/18 at 17:30 Acetaminophen/ Hydrocodone Bitart ([place] (5/325)) 1 tab Q6H PRN PO .PAIN 4-6; Start 07/09/18 at 17:30 Acetaminophen/ Hydrocodone Bitart ([place] (5/325)) 2 tab Q6H PRN PO .PAIN 7-10 Last administered on 07/09/18at 17:59; Admin Dose 2 TAB; Start 07/09/18 at 17:30 Morphine Sulfate (morphine) 2 mg Q4H PRN IV .PAIN 7-10; Start 07/09/18 at 17:30 Docusate Sodium (Colace) 100 mg Q12H PRN PO .CONSTIPATION; Start 07/09/18 at 17:30 Magnesium Hydroxide (Milk Of Mag) 30 ml DAILY PRN PO .CONSTIPATION; Start 07/09/18 at 17:30 Pantoprazole (Protonix Tab) 40 mg DAILY@06 PO ; Start 07/10/18 at 06:00 Enoxaparin Sodium (Lovenox) 40 mg DAILY SC ; Start 07/10/18 at 09:00 Coded Allergies: No Known Allergy (Unverified , 07/09/18) Past Surgical History Past Surgical Hx: cholecystectomy, other (left hip replacement, right knee surgery) Family History Significant Family History: no pertinent family hx Social History Alcohol Use: none Smoking Status: Current every day smoker Drug Use: none Exam/Review of Systems Vital Signs Vitals Vital Signs Date Temp Pulse Resp B/P (MAP) Pulse Ox O2 O2 Flow FiO2 Time Delivery Rate 07/09/18 82 11 133/73 97 Room Air 18:27 (93) 07/09/18 98.2 15:10 Exam Exam General: Patient is laying in bed, no acute distress. answering questions appropriately. poor dentition Head: Normocephalic atraumatic Eyes: EOMI, pupils reactive to light. Neck: Supple, nontender, midline Respiratory: Clear to auscultation bilaterally. no wheezing or rhonchi Cardiovascular: S1, S2, regular rate and rhythm, no obvious murmurs Gastrointestinal: soft, tender to palpation epigastric area and LUQ, nondistended, bowel sounds heard. no rebound or guarding Ext: tenderness to palpation right knee. no erythema or warmth appreciated. healed surgical incision scars appreciated Neurological: Moves all extremities spontaneously. no focal deficits Skin: No lesions or rashes appreciated Additional Comments Home medications reviewed JUSTICE OSUNA MD Jul 09, 2018 18:40
[2018-07-09] MEDS ORDERED: DEXTROSE 50% 50 ML SYRINGE IV PRN ×2 (19:00)
[2018-07-09] MEDS ORDERED: GLUCOSE GEL 15 GRAM TUBE PO PRN ×2 (19:00)
[2018-07-09] MEDS ORDERED: GLUCAGON 1 MG INJ IM PRN (19:00)
[2018-07-09] MEDS ORDERED: GLUCOSE GEL 15 GRAM TUBE BUCCAL PRN (19:00)
[2018-07-09 21:05] VITALS: BP 147/74; PULSE 83; RESP 18
[2018-07-09 21:11] VITALS: PULSE 84
[2018-07-09] MEDS: GABAPENTIN 300 MG CAP PO SCH (22:05)
[2018-07-09] MEDS: INSULIN ASPART [NOVOLOG] 3 ML PEN SC SCH (22:18)
[2018-07-09] MEDS: morphine 2 MG INJ IV PRN (22:24)
[2018-07-09 22:33] VITALS: Ht 170.2 cm; Wt 73.9 kg
[2018-07-09] MEDS: ZOLPIDEM 5 MG TAB PO PRN (23:30)
[2018-07-10] VITALS (12 sets, daily range): BP systolic 114–143; BP diastolic 54–75; PULSE 75–92; RESP 18–19
[2018-07-10] MEDS: morphine 2 MG INJ IV PRN ×4 (04:47→20:30)
[2018-07-10] MEDS: PANTOPRAZOLE (EC) 40 MG TAB PO SCH (06:04)
[2018-07-10] MEDS: INSULIN ASPART [NOVOLOG] 3 ML PEN SC SCH ×4 (08:03→20:26)
[2018-07-10] MEDS: FOLIC ACID 1 MG TAB PO SCH (08:55)
[2018-07-10] MEDS: GABAPENTIN 300 MG CAP PO SCH ×3 (08:56→20:17)
[2018-07-10] MEDS: BENAZEPRIL 10 MG TAB PO SCH (08:56)
[2018-07-10] MEDS: AMLODIPINE 5 MG TAB PO SCH (08:56)
[2018-07-10] MEDS: THIAMINE 100 MG TAB PO SCH (08:57)
[2018-07-10] MEDS: ENOXAPARIN 40 MG/0.4 ML SYG SC SCH (09:04)
--- NOTE | 2018-07-10 09:05 | PN ---
Date/Time of Note Date/Time of Note DATE: 07/10/18 TIME: 09:05 Assessment/Plan VTE Prophylaxis SCD applied (from Nsg): Yes Pharmacological prophylaxis: LMWH Lines/Catheters IV Catheter Type (from Nrsg): Saline Lock Urinary Cath still in place: No Assessment/Plan Assessment/Plan 1. Acute chest pain - negative trops x 3 and ECHO results negative for structural abnormalities - Most likely GI related given reproducible - EKG negative for acute ST changes 2. Epigastric pain - Will order Carafate and continue on PPI - Simethicone PRN - monitor for worsening in sx 3. Constipation - bowel regime on board 4. recent right knee surgery - pain control - PT/OT - with muscle spasms, started on Baclofen 5. DM - A1c noted - Will continue ISS and accuchecks 6. HTN - continue home medications and adjust as needed 7. Disposition - Medication adjustments made and if remains stable and symptoms resolve, will d/c home in the am. Result Diagram: 07/10/1824 07/10/18523 Results 24hrs Laboratory Tests Test 07/09/18 15:30 07/09/18 22:03 07/09/18 22:07 07/10/18 02:54 White Blood Count 6.4 Red Blood Count 4.44 #L Hemoglobin 13.2 L Hematocrit 41.5 L Mean Corpuscular Volume 93.5 Mean Corpuscular 29.7 Hemoglobin Mean Corpuscular 31.8 L Hemoglobin Concent Red Cell Distribution 13.8 Width Platelet Count 277 # Mean Platelet Volume 10.6 H Immature Granulocytes % 0.200 Neutrophils % 57.8 Lymphocytes % 28.2 Monocytes % 10.8 Eosinophils % 2.4 Basophils % 0.6 Nucleated Red Blood 0.0 Cells % Immature Granulocytes # 0.010 Neutrophils # 3.7 Lymphocytes # 1.8 Monocytes # 0.7 Eosinophils # 0.2 Basophils # 0.0 Nucleated Red Blood 0.0 Cells # Sodium Level 138 Potassium Level 4.4 Chloride Level 98 Carbon Dioxide Level 33 H Anion Gap 7 Blood Urea Nitrogen 12 Creatinine 0.59 L Est Glomerular Filtrat > 60 Rate mL/min Glucose Level 200 Hemoglobin A1c 7.2 H Calcium Level 10.1 Troponin I < 0.012 < 0.012 Bedside Glucose 189 284 H Creatine Kinase 57 Creatine Kinase Index 1.0 Creatinine Kinase MB 0.57 (Mass) Test 07/10/18 05:24 07/10/18 07:31 White Blood Count 5.7 Red Blood Count 4.02 L Hemoglobin 11.9 L Hematocrit 37.3 L Mean Corpuscular Volume 92.8 Mean Corpuscular 29.6 Hemoglobin Mean Corpuscular 31.9 L Hemoglobin Concent Red Cell Distribution 13.8 Width Platelet Count 256 Mean Platelet Volume 11.0 H Immature Granulocytes % 0.400 Neutrophils % 50.9 Lymphocytes % 32.9 Monocytes % 12.5 H Eosinophils % 2.8 Basophils % 0.5 Nucleated Red Blood 0.0 Cells % Immature Granulocytes # 0.020 Neutrophils # 2.9 Lymphocytes # 1.9 Monocytes # 0.7 Eosinophils # 0.2 Basophils # 0.0 Nucleated Red Blood 0.0 Cells # Sodium Level 138 Potassium Level 4.2 Chloride Level 100 Carbon Dioxide Level 29 Anion Gap 9 Blood Urea Nitrogen 15 Creatinine 0.44 L Est Glomerular Filtrat > 60 Rate mL/min Glucose Level 226 H Calcium Level 9.7 Magnesium Level 1.4 L Creatine Kinase 55 Creatine Kinase Index 0.9 Creatinine Kinase MB 0.52 (Mass) Troponin I < 0.012 Triglycerides Level 65 Cholesterol Level 92 L LDL Cholesterol, 40 Calculated HDL Cholesterol 39 Cholesterol/HDL Ratio 2.3 Thyroid Stimulating 1.940 Hormone (TSH) Bedside Glucose 157 Subjective 24 Hr Interval Summary Free Text/Dictation Patient still experiencing persistent chest discomfort but states mostly GI related. Complaining of muscle spasms. Exam/Review of Systems Exam Vitals Vital Signs Date Temp Pulse Resp B/P (MAP) Pulse Ox O2 O2 Flow FiO2 Time Delivery Rate 07/10/18 98.1 79 19 142/74 96 07:53 (96) 07/10/18 Room Air 03:59 Exam General: Patient is laying in bed, no acute distress. answering questions appropriately Chest: tender to palpation epigastric area Respiratory: Clear to auscultation bilaterally. no wheezing or rhonchi Cardiovascular: S1, S2, regular rate and rhythm, no obvious murmurs Gastrointestinal: soft, tender to palpation epigastric area, nondistended, bowel sounds heard. no rebound or guarding Ext: tenderness to palpation right knee. no erythema or warmth appreciated. healed surgical incision scars appreciated Neurological: Moves all extremities spontaneously. no focal deficits Skin: No lesions or rashes appreciated Results Results 24hrs Laboratory Tests Test 07/09/18 15:30 07/09/18 22:03 07/09/18 22:07 07/10/18 02:54 White Blood Count 6.4 Red Blood Count 4.44 #L Hemoglobin 13.2 L Hematocrit 41.5 L Mean Corpuscular Volume 93.5 Mean Corpuscular 29.7 Hemoglobin Mean Corpuscular 31.8 L Hemoglobin Concent Red Cell Distribution 13.8 Width Platelet Count 277 # Mean Platelet Volume 10.6 H Immature Granulocytes % 0.200 Neutrophils % 57.8 Lymphocytes % 28.2 Monocytes % 10.8 Eosinophils % 2.4 Basophils % 0.6 Nucleated Red Blood 0.0 Cells % Immature Granulocytes # 0.010 Neutrophils # 3.7 Lymphocytes # 1.8 Monocytes # 0.7 Eosinophils # 0.2 Basophils # 0.0 Nucleated Red Blood 0.0 Cells # Sodium Level 138 Potassium Level 4.4 Chloride Level 98 Carbon Dioxide Level 33 H Anion Gap 7 Blood Urea Nitrogen 12 Creatinine 0.59 L Est Glomerular Filtrat > 60 Rate mL/min Glucose Level 200 Hemoglobin A1c 7.2 H Calcium Level 10.1 Troponin I < 0.012 < 0.012 Bedside Glucose 189 284 H Creatine Kinase 57 Creatine Kinase Index 1.0 Creatinine Kinase MB 0.57 (Mass) Test 07/10/18 05:24 07/10/18 07:31 White Blood Count 5.7 Red Blood Count 4.02 L Hemoglobin 11.9 L Hematocrit 37.3 L Mean Corpuscular Volume 92.8 Mean Corpuscular 29.6 Hemoglobin Mean Corpuscular 31.9 L Hemoglobin Concent Red Cell Distribution 13.8 Width Platelet Count 256 Mean Platelet Volume 11.0 H Immature Granulocytes % 0.400 Neutrophils % 50.9 Lymphocytes % 32.9 Monocytes % 12.5 H Eosinophils % 2.8 Basophils % 0.5 Nucleated Red Blood 0.0 Cells % Immature Granulocytes # 0.020 Neutrophils # 2.9 Lymphocytes # 1.9 Monocytes # 0.7 Eosinophils # 0.2 Basophils # 0.0 Nucleated Red Blood 0.0 Cells # Sodium Level 138 Potassium Level 4.2 Chloride Level 100 Carbon Dioxide Level 29 Anion Gap 9 Blood Urea Nitrogen 15 Creatinine 0.44 L Est Glomerular Filtrat > 60 Rate mL/min Glucose Level 226 H Calcium Level 9.7 Magnesium Level 1.4 L Creatine Kinase 55 Creatine Kinase Index 0.9 Creatinine Kinase MB 0.52 (Mass) Troponin I < 0.012 Triglycerides Level 65 Cholesterol Level 92 L LDL Cholesterol, 40 Calculated HDL Cholesterol 39 Cholesterol/HDL Ratio 2.3 Thyroid Stimulating 1.940 Hormone (TSH) Bedside Glucose 157 Medications Medication Current Medications Amlodipine Besylate (Norvasc) 5 mg DAILY PO ; Start 07/10/18 at 09:00 Benazepril HCl (Lotensin) 10 mg DAILY PO ; Start 07/10/18 at 09:00 Folic Acid (Folic Acid) 1 mg DAILY PO ; Start 07/10/18 at 09:00 Gabapentin (Neurontin) 300 mg TID PO Last administered on 07/09/18at 22:05; Admin Dose 300 MG; Start 07/09/18 at 21:00 Thiamine HCl (Vitamin B1) 100 mg DAILY PO ; Start 07/10/18 at 09:00 Tramadol HCl (Ultram) 50 mg Q8H PRN PO PAIN; Start 07/09/18 at 17:30 Zolpidem Tartrate (Ambien) 5 mg QHS PRN PO INSOMNIA Last administered on 07/09/18at 23:30; Admin Dose 5 MG; Start 07/09/18 at 17:30 IV Flush (NS 3 ml) 3 ml PER PROTOCOL IV ; Start 07/09/18 at 17:30 Ondansetron HCl (Zofran Inj) 4 mg Q6H PRN IV NAUSEA/VOMITING; Start 07/09/18 at 17:30 Nitroglycerin (Nitroglycerin (Sl Tab) 0.4 Mg) 1 tab Q5M PRN SL .CHEST PAIN; Start 07/09/18 at 17:30 Acetaminophen (Tylenol Tab) 650 mg Q6H PRN PO .PAIN 1-3 OR TEMP; Start 07/09/18 at 17:30 Acetaminophen/ Hydrocodone Bitart ([place] (5/325)) 1 tab Q6H PRN PO .PAIN 4-6; Start 07/09/18 at 17:30 Acetaminophen/ Hydrocodone Bitart ([place] (5/325)) 2 tab Q6H PRN PO .PAIN 7-10 Last administered on 07/09/18at 17:59; Admin Dose 2 TAB; Start 07/09/18 at 17:30 Morphine Sulfate (morphine) 2 mg Q4H PRN IV .PAIN 7-10 Last administered on 07/10/18at 04:47; Admin Dose 2 MG; Start 07/09/18 at 17:30 Docusate Sodium (Colace) 100 mg Q12H PRN PO .CONSTIPATION; Start 07/09/18 at 17:30 Magnesium Hydroxide (Milk Of Mag) 30 ml DAILY PRN PO .CONSTIPATION; Start 07/09/18 at 17:30 Pantoprazole (Protonix Tab) 40 mg DAILY@06 PO Last administered on 07/10/18at 06:04; Admin Dose 40 MG; Start 07/10/18 at 06:00 Enoxaparin Sodium (Lovenox) 40 mg DAILY SC ; Start 07/10/18 at 09:00 Simethicone (Mylicon) 80 mg Q6H PRN PO DISTENSION/GAS/BLOATING; Start 07/09/18 at 18:30 Insulin Aspart (Novolog Insulin Pen) NOVOLOG *MILD* ALGORITHM WITH MEALS BEDTIME SC Last administered on 07/10/18at 08:03; Admin Dose 1 UNIT; Start 07/09/18 at 21:00 Miscellaneous Information 1 ea NOTE XX ; Start 07/09/18 at 19:00 Glucose (Glutose) 15 gm Q15M PRN PO DECREASED GLUCOSE; Start 07/09/18 at 19:00 Glucose (Glutose) 22.5 gm Q15M PRN PO DECREASED GLUCOSE; Start 07/09/18 at 19:00 Dextrose (D50w Syringe) 25 ml Q15M PRN IV DECREASED GLUCOSE; Start 07/09/18 at 19:00 Dextrose (D50w Syringe) 50 ml Q15M PRN IV DECREASED GLUCOSE; Start 07/09/18 at 19:00 Glucagon (Glucagen) 1 mg Q15M PRN IM DECREASED GLUCOSE; Start 07/09/18 at 19:00 Glucose (Glutose) 15 gm Q15M PRN BUCCAL DECREASED GLUCOSE; Start 07/09/18 at 19:00 JUSTICE OSUNA MD Jul 10, 2018 09:05
[2018-07-10] MEDS ORDERED: MAGNESIUM SULFATE 2 GM/50 ML 50 ML IVPB ONE (10:30)
[2018-07-10] MEDS ORDERED: BACLOFEN 10 MG TAB PO SCH (12:00)
--- NOTE | 2018-07-10 12:20 | RADRPT ---
Echocardiogram Report Patient Name: Romy MENARD ID: [id number] : 1955 (63y 6m)Study Date: 07/10/2018 7:20:48 AM Gender: Jean-Pierrecession #: [id number] Tech: AGUILA Ku [facility] Location: [facility] Ref.Physician: JUSTICE OSUNA Height(Cm): BSA: Weight(Kg): Quality: AdequateAccount #: Procedures: Echocardiographic Report: Transthoracic echocardiogram with complete 2D, M-Mode, and doppler examination. Indications: Chest Pain. Measurements: 2D/M Mode Doppler Measurement Value Normal Range Measurement Value Normal Range LVIDd 2D 4.2 [ 4.2 - 5.8 ] cm AV Peak [place] 0.9 [ 100.0 - 170.0 ] cm/se c LVIDs 2D 3.1 [ 2.5 - 4.0 ] cm AV Peak PG 3.0 [ 2.0 - 9.0 ] mmHg LVPWd 2D 1.0 [ 0.6 - 1.0 ] cm LVOT Peak [place] 0.7 [ 70.0 - 110.0 ] cm/sec IVSd 2D 0.5 [ 0.6 - 1.0 ] cm LVOT Peak PG 2.0 [ 2.0 - 6.0 ] mmHg AoR Diam 2D 3.0 [ 2.6 - 3.4 ] cm MV E Peak [place] 0.6 [ 60.0 - 130.0 ] cm/sec EDV 2D 77.3 [ 62.0 - 150.0 ] ml MV A Peak [place] 0.8 [ 100.0 - 120.0 ] cm/se c ESV 2D 37.0 [ 21.0 - 61.0 ] ml MV E/A 0.7 [ 0.8 - 1.5 ] ratio EF 2D 52.1 [ 52.0 - 72.0 ] percent MV PHT 64.0 [ 20.0 - 100.0 ] msec LA Dimen 2D 2.1 [ 3.0 - 4.0 ] cm MV Decel Time 218 [ 104 - 258 ] msec MV Decel [place] 3 Lat E` [place] 0.1 [ 10.0 - 15.0 ] cm/sec Lateral E/E` 6.4 [ 1.0 - 2.0 ] ratio Med E` [place] 0.1 cm/sec MV E/A 0.7 [ 0.8 - 1.5 ] ratio MVA PHT 3.4 [ 2.0 - 4.0 ] cm2 Findings: Left Ventricle: Normal left ventricular systolic function. Normal left ventricular cavity size. Normal left ventricular wall thickness. Ejection fraction is visually estimated at 55-60 %. Tissue Doppler/Mitral Doppler indices are within normal limits. Right Ventricle: Normal right ventricular size. Normal right ventricular systolic function. Left Atrium: The left atrium is normal in size. Right Atrium: The right atrium is normal in size. Atrial Septum: Normal atrial septum. Ventricular septum: Normal/intact ventricular septum. Mitral Valve: Normal appearance of the mitral valve. Normal appearance and function of the mitral valve with trace physiologic regurgitation. Aortic Valve: Normal appearance of the aortic valve. No significant aortic stenosis or insufficiency. Tricuspid Valve: Normal appearance of the tricuspid valve. Unable to obtain RVSP due to minimal presence of tricuspid regurgitation. There is trace tricuspid regurgitation. Pulmonic Valve: Normal pulmonic valve appearance. No evidence of pulmonic regurgitation. Pericardium: Normal pericardium with no significant pericardial effusion. Aorta: Normal aortic root. IVC: Normal size and normal respiratory collapse consistent with normal right atrial pressure. Conclusions: Normal left ventricular systolic function. Normal left ventricular cavity size. Normal left ventricular wall thickness. Ejection fraction is visually estimated at 55-60 %. Tissue Doppler/Mitral Doppler indices are within normal limits. No significant valvular stenosis or regurgitation seen. Unable to obtain RVSP due to minimal presence of tricuspid regurgitation.Normal size and normal respiratory collapse consistent with normal right atrial pressure. Electronically Signed By: Kirit Chavez 2018-07-10 12:19:39 PDT
[2018-07-10] MEDS: SENNA/DOCUSATE NA (8.6MG/50MG) TAB PO SCH ×2 (12:26→20:17)
[2018-07-10] MEDS: BACLOFEN 10 MG TAB PO SCH ×2 (12:27→20:17)
[2018-07-10] MEDS: MAGNESIUM HYDROXIDE 30ML CUP PO PRN (12:27)
[2018-07-10] MEDS: SUCRALFATE 1 GM TAB PO SCH ×3 (12:30→23:42)
[2018-07-10] MEDS: HYDROCODONE/APAP (5/325) TAB PO PRN ×2 (17:55→19:58)
[2018-07-10] MEDS: ZOLPIDEM 5 MG TAB PO PRN (21:44)
[2018-07-11] VITALS (10 sets, daily range): BP systolic 124–144; BP diastolic 55–68; PULSE 63–85; RESP 17–19
[2018-07-11] MEDS: morphine 2 MG INJ IV PRN ×5 (01:21→21:14)
[2018-07-11] MEDS: SUCRALFATE 1 GM TAB PO SCH ×3 (06:42→17:10)
[2018-07-11] MEDS: PANTOPRAZOLE (EC) 40 MG TAB PO SCH (06:42)
[2018-07-11] MEDS: INSULIN ASPART [NOVOLOG] 3 ML PEN SC SCH ×5 (07:32→20:10)
[2018-07-11] MEDS: FOLIC ACID 1 MG TAB PO SCH (07:56)
[2018-07-11] MEDS: THIAMINE 100 MG TAB PO SCH (07:56)
[2018-07-11] MEDS: SENNA/DOCUSATE NA (8.6MG/50MG) TAB PO SCH ×2 (07:56→20:07)
[2018-07-11] MEDS: BACLOFEN 10 MG TAB PO SCH ×3 (07:57→20:06)
[2018-07-11] MEDS: GABAPENTIN 300 MG CAP PO SCH ×3 (07:57→20:06)
[2018-07-11] MEDS: BENAZEPRIL 10 MG TAB PO SCH (07:58)
[2018-07-11] MEDS: AMLODIPINE 5 MG TAB PO SCH (07:58)
[2018-07-11] MEDS: MAGNESIUM HYDROXIDE 30ML CUP PO PRN (07:58)
[2018-07-11] MEDS: ENOXAPARIN 40 MG/0.4 ML SYG SC SCH (08:07)
[2018-07-11] MEDS ORDERED: LACTULOSE 30ML CUP PO ONE (09:30)
[2018-07-11] MEDS ORDERED: MAGNESIUM SULFATE 2 GM/50 ML 50 ML IVPB ONE (10:00)
--- NOTE | 2018-07-11 10:34 | PN ---
Date/Time of Note Date/Time of Note DATE: 07/11/18 TIME: 10:31 Assessment/Plan VTE Prophylaxis Risk score (from Nsg)>0 risk: 12 SCD applied (from Nsg): Yes Pharmacological prophylaxis: LMWH Lines/Catheters IV Catheter Type (from Nrsg): Saline Lock Urinary Cath still in place: No Assessment/Plan Assessment/Plan 1. Acute chest pain - most likely GI in etiology - negative trops x 3 and ECHO results negative for structural abnormalities - EKG negative for acute ST changes 2. Epigastric pain - Continue on Carafate and PPI - had BM but still with discomfort - Simethicone PRN - monitor for worsening in sx 3. Constipation - bowel regime on board - Had large BM this am and still feels as if he has more to pass 4. recent right knee surgery - pain control - PT/OT - on Baclofen for spasms 5. DM - A1c noted - Will continue ISS and accuchecks 6. HTN - continue home medications and adjust as needed 7. Disposition - Continue monitoring for improvement in GI discomfort. If remains stable, can be d/c tomorrow back to [facility] Result Diagram: 07/11/1851807/11/18518 Results 24hrs Laboratory Tests Test 07/10/18 11:45 07/10/18 17:12 07/10/18 20:20 07/11/18 01:31 Bedside Glucose 212 149 279 H 296 H Test 07/11/18 05:19 07/11/18 07:26 White Blood Count 6.2 Red Blood Count 4.14 L Hemoglobin 12.3 L Hematocrit 38.6 L Mean Corpuscular Volume 93.2 Mean Corpuscular 29.7 Hemoglobin Mean Corpuscular 31.9 L Hemoglobin Concent Red Cell Distribution 14.1 Width Platelet Count 251 Mean Platelet Volume 11.4 H Immature Granulocytes % 0.300 Neutrophils % 51.6 Lymphocytes % 32.2 Monocytes % 11.7 H Eosinophils % 3.4 Basophils % 0.8 Nucleated Red Blood 0.0 Cells % Immature Granulocytes # 0.020 Neutrophils # 3.2 Lymphocytes # 2.0 Monocytes # 0.7 Eosinophils # 0.2 Basophils # 0.1 Nucleated Red Blood 0.0 Cells # Sodium Level 136 Potassium Level 4.8 Chloride Level 101 Carbon Dioxide Level 27 Anion Gap 8 Blood Urea Nitrogen 17 Creatinine 0.48 L Glucose Level 264 H Calcium Level 9.5 Phosphorus Level 4.1 Magnesium Level 1.7 Albumin 3.8 Bedside Glucose 264 H Subjective 24 Hr Interval Summary Free Text/Dictation Patient still with intermitted epigastric discomfort despite large BM this am. Complains about knee pain as well. Exam/Review of Systems Exam Vitals Vital Signs Date Temp Pulse Resp B/P (MAP) Pulse Ox O2 O2 Flow FiO2 Time Delivery Rate 07/11/18 85 08:01 07/11/18 98.0 18 124/60 97 07:42 (81) 07/10/18 Room Air 03:59 Intake and Output 07/10/18 07/10/18 07/11/18 1414:59 22:59 06:59 IntakeIntake Total 500 ml 800 ml OutputOutput Total 900 ml 850 ml BalanceBalance -400 ml -50 ml Exam General: Patient is laying in bed, distress secondary to discomfort Chest: tender to palpation epigastric area Respiratory: Clear to auscultation bilaterally. no wheezing or rhonchi Cardiovascular: S1, S2, regular rate and rhythm, no obvious murmurs Gastrointestinal: soft, tender to palpation epigastric area, nondistended, bowel sounds heard. no rebound or guarding Ext: tenderness to palpation right knee. no erythema or warmth appreciated. healed surgical incision scars appreciated Results Results 24hrs Laboratory Tests Test 07/10/18 11:45 07/10/18 17:12 07/10/18 20:20 07/11/18 01:31 Bedside Glucose 212 149 279 H 296 H Test 07/11/18 05:19 07/11/18 07:26 White Blood Count 6.2 Red Blood Count 4.14 L Hemoglobin 12.3 L Hematocrit 38.6 L Mean Corpuscular Volume 93.2 Mean Corpuscular 29.7 Hemoglobin Mean Corpuscular 31.9 L Hemoglobin Concent Red Cell Distribution 14.1 Width Platelet Count 251 Mean Platelet Volume 11.4 H Immature Granulocytes % 0.300 Neutrophils % 51.6 Lymphocytes % 32.2 Monocytes % 11.7 H Eosinophils % 3.4 Basophils % 0.8 Nucleated Red Blood 0.0 Cells % Immature Granulocytes # 0.020 Neutrophils # 3.2 Lymphocytes # 2.0 Monocytes # 0.7 Eosinophils # 0.2 Basophils # 0.1 Nucleated Red Blood 0.0 Cells # Sodium Level 136 Potassium Level 4.8 Chloride Level 101 Carbon Dioxide Level 27 Anion Gap 8 Blood Urea Nitrogen 17 Creatinine 0.48 L Glucose Level 264 H Calcium Level 9.5 Phosphorus Level 4.1 Magnesium Level 1.7 Albumin 3.8 Bedside Glucose 264 H Medications Medication Current Medications Amlodipine Besylate (Norvasc) 5 mg DAILY PO Last administered on 07/11/18 07:58; Admin Dose 5 MG; Start 07/10/18 at 09:00 Benazepril HCl (Lotensin) 10 mg DAILY PO Last administered on 07/11/18 07:58; Admin Dose 10 MG; Start 07/10/18 at 09:00 Folic Acid (Folic Acid) 1 mg DAILY PO Last administered on 07/11/18 07:56; Admin Dose 1 MG; Start 07/10/18 at 09:00 Gabapentin (Neurontin) 300 mg TID PO Last administered on 07/11/18 07:57; Admin Dose 300 MG; Start 07/09/18 at 21:00 Thiamine HCl (Vitamin B1) 100 mg DAILY PO Last administered on 07/11/18 07:56; Admin Dose 100 MG; Start 07/10/18 at 09:00 Tramadol HCl (Ultram) 50 mg Q8H PRN PO PAIN; Start 07/09/18 at 17:30 Zolpidem Tartrate (Ambien) 5 mg QHS PRN PO INSOMNIA Last administered on 07/10/18 21:44; Admin Dose 5 MG; Start 07/09/18 at 17:30 IV Flush (NS 3 ml) 3 ml PER PROTOCOL IV ; Start 07/09/18 at 17:30 Ondansetron HCl (Zofran Inj) 4 mg Q6H PRN IV NAUSEA/VOMITING; Start 07/09/18 at 17:30 Nitroglycerin (Nitroglycerin (Sl Tab) 0.4 Mg) 1 tab Q5M PRN SL .CHEST PAIN; Start 07/09/18 at 17:30 Acetaminophen (Tylenol Tab) 650 mg Q6H PRN PO .PAIN 1-3 OR TEMP; Start 07/09/18 at 17:30 Acetaminophen/ Hydrocodone Bitart ([place] (5/325)) 1 tab Q6H PRN PO .PAIN 4-6 Last administered on 07/10/18 17:55; Admin Dose 1 TAB; Start 07/09/18 at 17:30 Acetaminophen/ Hydrocodone Bitart ([place] (5/325)) 2 tab Q6H PRN PO .PAIN 7-10 Last administered on 07/09/18 17:59; Admin Dose 2 TAB; Start 07/09/18 at 17:30 Morphine Sulfate (morphine) 2 mg Q4H PRN IV .PAIN 7-10 Last administered on 07/11/18 07:59; Admin Dose 2 MG; Start 07/09/18 at 17:30 Magnesium Hydroxide (Milk Of Mag) 30 ml DAILY PRN PO .CONSTIPATION Last administered on 07/11/18 07:58; Admin Dose 30 ML; Start 07/09/18 at 17:30 Pantoprazole (Protonix Tab) 40 mg DAILY@06 PO Last administered on 07/11/18 06:42; Admin Dose 40 MG; Start 07/10/18 at 06:00 Enoxaparin Sodium (Lovenox) 40 mg DAILY SC Last administered on 07/11/18 08:07; Admin Dose 40 MG; Start 07/10/18 at 09:00 Simethicone (Mylicon) 80 mg Q6H PRN PO DISTENSION/GAS/BLOATING Last administered on 07/10/18 12:26; Admin Dose 80 MG; Start 07/09/18 at 18:30 Insulin Aspart (Novolog Insulin Pen) NOVOLOG *MILD* ALGORITHM WITH MEALS BEDTIME SC Last administered on 07/11/18 08:10; Admin Dose 4 UNIT; Start at 21:00 Miscellaneous Information 1 ea NOTE XX ; Start 07/09/18 at 19:00 Glucose (Glutose) 15 gm Q15M PRN PO DECREASED GLUCOSE; Start 07/09/18 at 19:00 Glucose (Glutose) 22.5 gm Q15M PRN PO DECREASED GLUCOSE; Start 07/09/18 at 19:00 Dextrose (D50w Syringe) 25 ml Q15M PRN IV DECREASED GLUCOSE; Start 07/09/18 at 19:00 Dextrose (D50w Syringe) 50 ml Q15M PRN IV DECREASED GLUCOSE; Start 07/09/18 at 19:00 Glucagon (Glucagen) 1 mg Q15M PRN IM DECREASED GLUCOSE; Start 07/09/18 at 19:00 Glucose (Glutose) 15 gm Q15M PRN BUCCAL DECREASED GLUCOSE; Start 07/09/18 at 19:00 Baclofen (Lioresal) 10 mg TID PO Last administered on 07/11/18at 07:57; Admin Dose 10 MG; Start 07/10/18 at 13:00 Senna/Docusate Sodium (Senokot-S) 1 tab BID PO Last administered on 07/11/18at 07:56; Admin Dose 1 TAB; Start 07/10/18 at 12:30 Sucralfate (Carafate) 1 gm Q6 PO Last administered on 07/11/18at 06:42; Admin Dose 1 GM; Start 07/10/18 at 12:30 Magnesium Sulfate 50 ml @ 25 mls/hr ONCE ONCE IVPB ; Start 07/11/18 at 10:00; Stop 07/11/18 at 11:59 JUSTICE OSUNA MD Jul 11, 2018 10:34
[2018-07-11] MEDS: HYDROCODONE/APAP (5/325) TAB PO PRN ×2 (13:59→20:06)
[2018-07-11] MEDS: ZOLPIDEM 5 MG TAB PO PRN (22:13)
[2018-07-12] MEDS: SUCRALFATE 1 GM TAB PO SCH ×5 (00:04→23:16)
[2018-07-12 01:09] VITALS: BP 116/57; PULSE 77; RESP 18
[2018-07-12] MEDS: morphine 2 MG INJ IV PRN ×7 (01:17→23:48)
[2018-07-12] MEDS: PANTOPRAZOLE (EC) 40 MG TAB PO SCH (05:42)
[2018-07-12 07:20] VITALS: BP 129/62; PULSE 78; RESP 16
[2018-07-12] MEDS: AMLODIPINE 5 MG TAB PO SCH (08:25)
[2018-07-12] MEDS: BENAZEPRIL 10 MG TAB PO SCH (08:25)
[2018-07-12] MEDS: GABAPENTIN 300 MG CAP PO SCH ×3 (08:25→20:33)
[2018-07-12] MEDS: SENNA/DOCUSATE NA (8.6MG/50MG) TAB PO SCH ×2 (08:25→20:33)
[2018-07-12] MEDS: FOLIC ACID 1 MG TAB PO SCH (08:25)
[2018-07-12] MEDS: THIAMINE 100 MG TAB PO SCH (08:25)
[2018-07-12] MEDS: BACLOFEN 10 MG TAB PO SCH ×3 (08:25→20:33)
[2018-07-12] MEDS: INSULIN ASPART [NOVOLOG] 3 ML PEN SC SCH ×4 (08:27→20:36)
[2018-07-12] MEDS: ENOXAPARIN 40 MG/0.4 ML SYG SC SCH (08:28)
[2018-07-12] MEDS: MAGNESIUM HYDROXIDE 30ML CUP PO PRN (08:30)
[2018-07-12] MEDS: HYDROCODONE/APAP (5/325) TAB PO PRN ×4 (11:44→23:55)
--- NOTE | 2018-07-12 13:11 | PDOCDIS ---
Discharge Instructions CONDITION [id number] Patient Condition: [id number] Stable HOME CARE INSTRUCTIONS: [id number] Diet Instructions: [id number] Low Fat /Cholesterol ACTIVITY: [id number] Activity Restrictions: [id number] Slowly Increase Activity Avoid heavy lifting Do not Drive FOLLOW UP/APPOINTMENTS Follow-up Plan appt [facility] 1-2wks Primary 1-2wks PT/ OT eval/ treat [facility] NEW MD Jul 12, 2018 13:11
[2018-07-12] MEDS ORDERED: SIME80TA60 PO (13:13)
[2018-07-12] MEDS ORDERED: SUCR1TAB35 PO (13:13)
[2018-07-12] MEDS ORDERED: SENOKOTS PO (13:13)
[2018-07-12] MEDS ORDERED: ENOX40DI2 SC (13:13)
[2018-07-12] MEDS ORDERED: PANT40TA4 PO (13:13)
--- NOTE | 2018-07-12 13:17 | DS ---
Date/Time of Note Date/Time of Note DATE: 07/12/18 TIME: 13:14 Discharge Summary Admission/Discharge Info Admit Date/Time Jul 11, 2018 at 10:30 Discharge Date/Time Patient Condition: Stable Procedures 2D echo Conclusions: Normal left ventricular systolic function. Normal left ventricular cavity size. Normal left ventricular wall thickness. Ejection fraction is visually estimated at 55-60 %. Tissue Doppler/Mitral Doppler indices are within normal limits. No significant valvular stenosis or regurgitation seen. Unable to obtain RVSP due to minimal presence of tricuspid regurgitation.Normal size and normal respiratory collapse consistent with normal right atrial pressure. Hx of Present Illness 63-year-old gentleman transferred from custodial for stomach and chest pain Hospital Course Hospitalist coverage/hospital course 63-year-old gentleman transferred from custodial for concern of abdominal chest pain. No known aggravating or relieving factors. Positive constipation. There is nonexertional. Labs unremarkable. Chest x-ray unremarkable for any acute intrathoracic process. Vitals stable. Probably related to constipation. EKG without any acute issues. Patient does have cardiac risk factors, and this can be observed with risk factor modification as an outpatient. Additionally adeel hernandez was evaluated by staff and noted to have a right heel stage I. Wound care offloading therapy instituted. Additionally had right hip pain. X-rays pending. If there is no fracture I think he can go back to [facility]. Patient recently had a procedure on his right hip and right knee? Recommend he follow- up with his medical communication specialist that did these procedures. Atypical chest pain Constipation Failure to thrive Dyslipidemia Type 2 diabetes Metabolic syndrome Hypertension Arthritis Hepatitis C viremia Stage I right heel, continue offloading/skin- wound care Past tobacco Home Meds Active Scripts Sucralfate (Carafate) 1 Gm Tablet, 1 GM PO Q6 for 14 Days, TAB Prov:CHI NEW MD 07/12/18 Simethicone* (Mylicon*) 80 Mg Tab, 80 MG PO Q6H PRN for DISTENSION/GAS/BLOATING for 10 Days, TAB Prov:CHI NEW MD 07/12/18 Pantoprazole* (Pantoprazole*) 40 Mg Tablet.dr, 40 MG PO DAILY@06 for 14 Days Prov:CHI NEW MD 07/12/18 Sennosides/Docusate Sodium (Dok Plus Tablet) 1 Each Tablet, 1 TAB PO BID for 10 Days, TAB Prov:CHI NEW MD 07/12/18 Enoxaparin Sodium* (Enoxaparin Sodium*) 40 Mg/0.4 Ml Syringe, 40 MG SC DAILY for 7 Days Prov:CHI NEW MD 07/12/18 Reported Medications Acetaminophen* (Tylenol*) 325 Mg Tablet, 650 MG PO Q6H PRN for MILD PAIN LEVEL 1-3, TAB 07/09/18 Guaifenesin* (Tussin*) 100 Mg/5 Ml Syrup, 10 ML PO Q6 PRN for COUGH, ML 07/09/18 Tramadol Hcl* (Ultram*) 50 Mg Tablet, 50 MG PO Q8H PRN for PAIN, TAB 07/09/18 Thiamine* (Vitamin B-1*) 100 Mg Tablet, 100 MG PO DAILY, TAB 07/09/18 Desogestrel-Ethinyl Estradiol (Desogest-Eth Estra 0.15-0.03MG) 1 Each Tablet, 1 EACH PO DAILY, TAB 07/09/18 Hydrocodone/Acetaminophen ([place] 10-325 Tablet) 1 Each Tablet, 1 EACH PO Q4H PRN for PAIN 4-6, TAB 07/09/18 Hydrocodone/Acetaminophen ([place] 10-325 Tablet) 1 Each Tablet, 1 EACH PO Q6H PRN for PAIN 7-01/13, TAB 07/09/18 Magaldrate/Simethicone* (Mag-Al Plus Suspension*) 30 Ml Oral.susp, 30 ML PO Q12H, ML 07/09/18 Multivitamin with Minerals (Multivitamins with Minerals) 1 Each Tablet, 1 EACH PO DAILY, TAB 07/09/18 Magnesium Hydroxide* (Milk Of Magnesia*) 400 Mg/5 Ml Oral.susp, 30 ML PO NEEDED for CONSTIPATION, ML 07/09/18 Ipratropium-Albuterol (Ipratropium-Albuterol) 0.5-3 Mg/3 Ml Ampul.neb, 3 ML INHALATION Q6, #30 VIAL 07/09/18 Insulin Regular, Human (Humulin R) 100 Unit/1 Ml Vial, 0 IJ SLIDING SCALE, VIAL IF BS 71-150=0 UNIT,151-200=2 UNITS,201-250=4 UNITS,251-300=6 UNITS,301-350=8 UNITS,351-400=10 UNITS IF BS>400 GIVE12 UNITS THEN CALL MD. 07/09/18 Gabapentin* (Gabapentin*) 300 Mg Capsule, 300 MG PO TID, #90 CAP 07/09/18 Folic Acid* (Folic Acid*) 1 Mg Tablet, 1 MG PO DAILY, TAB 07/09/18 Buprenorphine (BUTRANS) 1 Each Patch.tdwk, 1 EACH TD Q SAT 5MCG/HR,END DATE 07/10/18 07/09/18 Buprenorphine (Buprenorphine) 1 Each Patch.tdwk, 1 EACH TD Q SAT 10MCG/HR,FOR 7 WEEKS START 07/10/18 END DATE 08/28/18 07/09/18 Benazepril Hcl* (Benazepril Hcl*) 10 Mg Tablet, 10 MG PO DAILY, #30 TAB HOLD IF SBP<110 OR HR<60 07/09/18 Amlodipine Besylate* (Norvasc*) 5 Mg Tablet, 5 MG PO DAILY, TAB HOLD IF SBP<110 OR HR<60 07/09/18 Discontinued Reported Medications Zolpidem Tartrate* (Ambien*) 5 Mg Tablet, 5 MG PO QHS PRN for INSOMNIA, #30 TAB for 14 days,end date 07/16/18 07/09/18 Atorvastatin* (Atorvastatin*) 40 Mg Tablet, 40 MG PO QHS, #30 TAB 12/05/16 Zolpidem Tartrate* (Zolpidem Tartrate*) 10 Mg Tablet, 10 MG PO QHS PRN for INSOMNIA, #30 TAB 12/05/16 Thiamine* (Vitamin B-1*) 100 Mg Tablet, 100 MG PO DAILY, TAB 12/05/16 Amlodipine Besylate* (Norvasc*) 5 Mg Tablet, 5 MG PO DAILY, TAB 12/05/16 Gabapentin* (Neurontin*) 300 Mg Capsule, 300 MG PO TID, CAP 06/11/14 Insulin Glargine* (Lantus*) 100 Unit/Ml Soln, 10 UNIT SC HS, EA 06/11/14 Discontinued Scripts Metformin* (Glucophage*) 500 Mg Tab, 500 MG PO WITH BREAKFAST DINNE, #60 TAB Prov:RODY MENDOZA V. SCREED OPERATOR 12/10/16 Linagliptin (TRADJENTA) 5 Mg Tablet, 5 MG PO DAILY, #30 TAB Prov:RODY MENDOZA Willam PEREA 12/10/16 Follow-up Plan appt [facility] 1-2wks Primary 1-2wks PT/ OT eval/ treat Primary Care Provider Logan Robledo MD Time spent on discharge: > 30 minutes Pending Labs Laboratory Tests Test 07/11/18 17:38 07/11/18 20:10 07/12/18 07:37 07/12/18 12:39 Bedside 243 177 230 161 Glucose mg/dL (70-220) mg/dL (70-220) mg/dL (70-220) mg/dL (70-220) CHI NEW MD Jul 12, 2018 13:17
[2018-07-12 14:20] VITALS: BP 127/62; PULSE 78; RESP 16
[2018-07-12 19:15] VITALS: BP 138/72; PULSE 70; RESP 18
[2018-07-12] MEDS: ZOLPIDEM 5 MG TAB PO PRN (21:38)
[2018-07-13] MEDS: morphine 2 MG INJ IV PRN ×5 (01:05→18:29)
[2018-07-13 01:36] VITALS: BP 129/63; PULSE 78; RESP 18
[2018-07-13] MEDS: HYDROCODONE/APAP (5/325) TAB PO PRN ×2 (02:50→12:54)
[2018-07-13] MEDS: SUCRALFATE 1 GM TAB PO SCH ×3 (05:10→17:31)
[2018-07-13] MEDS: PANTOPRAZOLE (EC) 40 MG TAB PO SCH (05:10)
[2018-07-13] MEDS: MAGNESIUM HYDROXIDE 30ML CUP PO PRN ×2 (05:15→17:31)
[2018-07-13 07:52] VITALS: BP 124/72; PULSE 82; RESP 17
[2018-07-13] MEDS: THIAMINE 100 MG TAB PO SCH (08:15)
[2018-07-13] MEDS: SENNA/DOCUSATE NA (8.6MG/50MG) TAB PO SCH (08:15)
[2018-07-13] MEDS: BENAZEPRIL 10 MG TAB PO SCH (08:16)
[2018-07-13] MEDS: BACLOFEN 10 MG TAB PO SCH ×2 (08:16→12:34)
[2018-07-13] MEDS: GABAPENTIN 300 MG CAP PO SCH ×2 (08:16→12:33)
[2018-07-13] MEDS: FOLIC ACID 1 MG TAB PO SCH (08:17)
[2018-07-13] MEDS: AMLODIPINE 5 MG TAB PO SCH (08:17)
[2018-07-13] MEDS: traMADol 50 MG TAB PO PRN ×2 (08:17→17:32)
[2018-07-13] MEDS: INSULIN ASPART [NOVOLOG] 3 ML PEN SC SCH ×3 (08:19→17:40)
[2018-07-13] MEDS: ENOXAPARIN 40 MG/0.4 ML SYG SC SCH (08:20)
[2018-07-13 14:02] VITALS: BP 116/62; PULSE 72; RESP 17
--- NOTE | 2018-07-13 14:08 | DS ---
Date/Time of Note Date/Time of Note DATE: 07/13/18 TIME: 14:07 Discharge Summary Admission/Discharge Info Admit Date/Time Jul 11, 2018 at 10:30 Discharge Date/Time Patient Condition: Stable Procedures XR HIP FINDINGS: There is normal mineralization and alignment. No fracture or osseous lesion is identified. There are normal joints without evidence of arthritis or effusion. The soft tissues are unremarkable. IMPRESSION: Unremarkable right hip. No visualized fracture or dislocation. Hx of Present Illness 63-year-old gentleman transferred from [facility] for stomach and chest [facility] Hospital Course Hospitalist coverage/hospital course 63-year-old gentleman transferred from [facility] for concern of abdominal chest pain. No known aggravating or relieving factors. Positive constipation. There is nonexertional. Labs unremarkable. Chest x-ray unremarkable for any acute intrathoracic process. Vitals stable. Probably related to constipation. EKG without any acute issues. Patient does have cardiac risk factors, and this can be observed with risk factor modification as an outpatient. Additionally patient was evaluated by staff and noted to have a right heel stage I. Wound care offloading therapy instituted. Additionally had right hip pain. X-rays pending. If there is no fracture I think he can go back to [facility]. Patient recently had a procedure on his right hip and right knee? Recommend he follow- up with his career specialist that did these procedures. Addendum: Hip x-ray unremarkable. Stable and fit for discharge back to [facility]. Atypical chest pain Constipation Failure to thrive Dyslipidemia Type 2 diabetes Metabolic syndrome Hypertension Arthritis Hepatitis C viremia Stage I right heel, continue offloading/skin- wound care Past tobacco Home Meds Active Scripts Sucralfate (Carafate) 1 Gm Tablet, 1 GM PO Q6 for 14 Days, TAB Prov:CHI NEW MD 07/12/18 Simethicone* (Mylicon*) 80 Mg Tab, 80 MG PO Q6H PRN for DISTENSION/GAS/BLOATING for 10 Days, TAB Prov:CHI NEW MD 07/12/18 Pantoprazole* (Pantoprazole*) 40 Mg Tablet.dr 40 MG PO DAILY@06 for 14 Days Prov:CHI NEW MD 07/12/18 Sennosides/Docusate Sodium (Dok Plus Tablet) 1 Each Tablet, 1 TAB PO BID for 10 Days, TAB Prov:CHI NEW MD 07/12/18 Enoxaparin Sodium* (Enoxaparin Sodium*) 40 Mg/0.4 Ml Syringe, 40 MG SC DAILY for 7 Days Prov:CHI NEW MD 07/12/18 Reported Medications Acetaminophen* (Tylenol*) 325 Mg Tablet, 650 MG PO Q6H PRN for MILD PAIN LEVEL 1-3, TAB 07/09/18 Guaifenesin* (Tussin*) 100 Mg/5 Ml Syrup, 10 ML PO Q6 PRN for COUGH, ML 07/09/18 Tramadol Hcl* (Ultram*) 50 Mg Tablet, 50 MG PO Q8H PRN for PAIN, TAB 07/09/18 Thiamine* (Vitamin B-1*) 100 Mg Tablet, 100 MG PO DAILY, TAB 07/09/18 Desogestrel-Ethinyl Estradiol (Desogest-Eth Estra 0.15-0.03MG) 1 Each Tablet, 1 EACH PO DAILY, TAB 07/09/18 Hydrocodone/Acetaminophen ([place] 10-325 Tablet) 1 Each Tablet, 1 EACH PO Q4H PRN for PAIN 4-6, TAB 07/09/18 Hydrocodone/Acetaminophen ([place] 10-325 Tablet) 1 Each Tablet, 1 EACH PO Q6H PRN for PAIN 7-01/13, TAB 07/09/18 Magaldrate/Simethicone* (Mag-Al Plus Suspension*) 30 Ml Oral.susp, 30 ML PO Q12H, ML 07/09/18 Multivitamin with Minerals (Multivitamins with Minerals) 1 Each Tablet, 1 EACH PO DAILY, TAB 07/09/18 Magnesium Hydroxide* (Milk Of Magnesia*) 400 Mg/5 Ml Oral.susp, 30 ML PO NEEDED for CONSTIPATION, ML 07/09/18 Ipratropium-Albuterol (Ipratropium-Albuterol) 0.5-3 Mg/3 Ml Ampul.neb, 3 ML INHALATION Q6, #30 VIAL 07/09/18 Insulin Regular, Human (Humulin R) 100 Unit/1 Ml Vial, 0 IJ SLIDING SCALE, VIAL IF BS 71-150=0 UNIT,151-200=2 UNITS,201-250=4 UNITS,251-300=6 UNITS,301-350=8 UNITS,351-400=10 UNITS IF BS>400 GIVE12 UNITS THEN CALL MD. 07/09/18 Gabapentin* (Gabapentin*) 300 Mg Capsule, 300 MG PO TID, #90 CAP 07/09/18 Folic Acid* (Folic Acid*) 1 Mg Tablet, 1 MG PO DAILY, TAB 07/09/18 Buprenorphine (BUTRANS) 1 Each Patch.tdwk, 1 EACH TD Q SAT 5MCG/HR,END DATE 07/10/18 07/09/18 Buprenorphine (Buprenorphine) 1 Each Patch.tdwk, 1 EACH TD Q SAT 10MCG/HR,FOR 7 WEEKS START 07/10/18 END DATE 08/28/18 07/09/18 Benazepril Hcl* (Benazepril Hcl*) 10 Mg Tablet, 10 MG PO DAILY, #30 TAB HOLD IF SBP<110 OR HR<60 07/09/18 Amlodipine Besylate* (Norvasc*) 5 Mg Tablet, 5 MG PO DAILY, TAB HOLD IF SBP<110 OR HR<60 07/09/18 Discontinued Reported Medications Zolpidem Tartrate* (Ambien*) 5 Mg Tablet, 5 MG PO QHS PRN for INSOMNIA, #30 TAB for 14 days,end date 07/16/18 07/09/18 Atorvastatin* (Atorvastatin*) 40 Mg Tablet, 40 MG PO QHS, #30 TAB 12/05/16 Zolpidem Tartrate* (Zolpidem Tartrate*) 10 Mg Tablet, 10 MG PO QHS PRN for INSOMNIA, #30 TAB 12/05/16 Thiamine* (Vitamin B-1*) 100 Mg Tablet, 100 MG PO DAILY, TAB 12/05/16 Amlodipine Besylate* (Norvasc*) 5 Mg Tablet, 5 MG PO DAILY, TAB 12/05/16 Gabapentin* (Neurontin*) 300 Mg Capsule, 300 MG PO TID, CAP 06/11/14 Insulin Glargine* (Lantus*) 100 Unit/Ml Soln, 10 UNIT SC HS, EA 06/11/14 Discontinued Scripts Metformin* (Glucophage*) 500 Mg Tab, 500 MG PO WITH BREAKFAST DINNE, #60 TAB Prov:RODY MENDOZA V. DIGITAL PHOTO PRINTER 12/10/16 Linagliptin (TRADJENTA) 5 Mg Tablet, 5 MG PO DAILY, #30 TAB Prov:RODY MENDOZA VJocelyn PEREA 12/10/16 Follow-up Plan appt [facility] 1-2wks Primary 1-2wks PT/ OT eval/ treat Primary Care Provider Logan Robledo MD Time spent on discharge: < 30 minutes Pending Labs Laboratory Tests Test 07/12/18 17:37 07/12/18 20:32 07/13/18 02:51 07/13/18 08:15 Bedside 202 224 269 186 Glucose mg/dL (70-220) mg/dL (70-220) mg/dL (70-220) mg/dL (70-220) Test 07/13/18 12:35 Bedside 169 Glucose mg/dL (70-220) CHI NEW MD Jul 13, 2018 14:08
== END 2018-07-13 18:50 | DRG 392 ==
LOC: E/R 14:59 → 6WM 17:13 → OBSVTOIN 07-11 10:30 → 2NE 07-11 12:46
PROVIDERS: ADMIT Internal Medicine; ATTEND Internal Medicine
DX: K59.00 Constipation, unspecified (principal); R07.9 Chest pain, unspecified; I10 Essential (primary) hypertension; E11.9 Type 2 diabetes mellitus without complications; Z72.0 Tobacco use; R10.13 Epigastric pain; R10.11 Right upper quadrant pain; L89.611 Pressure ulcer of right heel, stage 1
CPT/HCPCS: 71045; 73510; 80048; 80061; 80069; 82550; 82553; 82962; 83036; 83735; 84443; 84484; 85025; 87081; 93005; 93306; 97110; 97116; 97162; 97167; 97530; 97535; G0378; J1650; J1815; J2270; J3475

== ENCOUNTER 2018-12-18 14:51 | Emergency (ER) | payer OTHER ==
[~2018-12-18] VITALS: Ht 170.2 cm; Wt 72.7 kg
[~2018-12-18 14:51] MED LIST changes: +ACET325T33 PO; +ASPI-28 PO; +BENA10TA6 PO; +BUPR1PAT TD; +BUPR1PAT20 TD; +DESO1TAB68 PO; +ENOX40DI2 SC; +FAMO-96 PO; +FOLI-49 PO; -GABA300C PO; +GABA300C16 PO; +GUAI-173 PO; +HYDR-3980 PO; +INSU100I12 SQ; +INSU100I33 SC; +INSU100V3 IJ; +IPRA3AMP29 INHALATION; -LANT3I SC; -LINA5TAB PO; +MAGN400O19 PO; -METF-849 PO; +MULT-105 PO; +NAPR-985 PO; +ONDA4TAB8 PO; +PANT40TA4 PO; +QUET100T PO; +SENOKOTS PO; +SIME80TA60 PO; +SUCR1TAB35 PO; +TRAM50TA PO; +TRAZ-188 PO; +UDMYL PO; -ZOLP10TA5 PO
[2018-12-18 14:53] VITALS: Ht 170.2 cm; Wt 72.7 kg
[2018-12-18] MEDS ORDERED: ONDANSETRON 4 MG INJ IV STA (15:28)
[2018-12-18] MEDS ORDERED: SOD CHLORIDE 0.9% 500 ML IV STA (15:28)
[2018-12-18] MEDS ORDERED: KETOROLAC 15 MG INJ IV STA (15:28)
[2018-12-18 17:30] VITALS: BP 141/84; PULSE 99; RESP 15
[2018-12-18] MEDS ORDERED: ACETAMINOPHEN 325 MG TAB PO ONE (17:30)
== END 2018-12-18 17:33 | disposition home or self-care (01) ==
LOC: E/R 14:51
DX: F10.20 Alcohol dependence, uncomplicated (principal); I10 Essential (primary) hypertension; E11.9 Type 2 diabetes mellitus without complications; Z79.4 Long term (current) use of insulin
CPT/HCPCS: 36415; 71045; 80053; 80307; 81003; 83690; 84484; 85025; 93005; 96374; 96375; J1885; J2405; J7040; Z7502; Z7610